=== PATIENT | female | born 1925 | race Caucasian/White ===

== ENCOUNTER 2016-10-20 17:24 | Inpatient (IN) | payer MEDICARE, OTHER ==
[2016-10-20] MEDS ORDERED: SODIUM CHLORIDE 500 ML IV STA (17:58)
[2016-10-20] MEDS ORDERED: CEFTRIAXONE 1 GM in DEXTROSE 5%-WATER - 50 ML IVPB ONE ×2 (17:59→23:48)
[2016-10-20] MEDS ORDERED: CEFTRIAXONE 50 ML ONE (18:03)
--- NOTE | 2016-10-20 18:27 | PDOC ---
History of Present Illness - General Chief Complaint: Lethargy Stated Complaint: INFECTION Time Seen by Provider: 10/20/16 17:33 History Source: Other (son) Exam Limitations: No Limitations - History of Present Illness Initial Comments: 10/20/16 18:22 89-year-old female presents to the ED for evaluation of decreased appetite, increased lethargy, and foul-smelling purulent urine noted in her diaper worsening since yesterday. Son denies fever, vomiting, diarrhea, or abdominal distention. Patient was admitted here approximately one month ago secondary to sepsis and seizure related to fever. Patient was discharged home after receiving physical therapy and has been home with the son since. Timing/Duration: getting worse Associated Symptoms: reports: loss of appetite, weakness Past History - Past Medical History Allergies/Adverse Reactions: Allergies Allergy/AdvReac Type Severity Reaction Status Date / Time Penicillins Allergy Verified 10/20/16 17:35 carbidopa AdvReac Verified 10/20/16 17:35 levetiracetam [From Keppra] AdvReac Verified 10/20/16 17:35 mirtazapine AdvReac Verified 10/20/16 17:35 Home Medications: Ambulatory Orders Carboxymethylcellulose Sodium [Refresh Plus] 1 each OP BID PRN 06/22/16 Nystatin Ointment [Mycostatin Ointment -] 1 applic TP BID PRN 06/22/16 Docusate Liquid [Colace Liquid -] 100 mg PO TID #473 ml 09/14/16 Memantine HCl [Namenda Liquid] 5 mg PO DAILY #30 ml 09/14/16 Phenytoin Na Extended [Dilantin -] 100 mg PO BID #60 capsule 09/14/16 Polyethylene Glycol 3350 [Miralax 255 gm Btl -] 17 gm PO DAILY #1 bottle Anemia: No Asthma: No Cancer: No Cardiac Disorders: No COPD: No CHF: No Dementia: Yes Diabetes: No GI Disorders: No Disorders: Yes (UTI) HTN: No Hypercholesterolemia: No Liver Disease: No Psychiatric Problems: Yes (dementia) Seizures: Yes Thyroid Disease: No - Surgical History Cardiac Surgery: No Lung Surgery: No Neurologic Surgery: No - Psycho/Social/Smoking Cessation Hx Anxiety: No Suicidal Ideation: No Smoking History: Never smoked Have you smoked in the past 12 months: No Information on smoking cessation initiated: No Hx Alcohol Use: No Drug/Substance Use Hx: No Substance Use Type: None Hx Substance Use Treatment: No Patient Lives Alone: No Lives with/in: son Review of Systems - Review of Systems Able to Perform ROS?: Yes Constitutional: Yes: Loss of Appetite, Weakness HEENTM: No: Symptoms Reported Respiratory: No: Symptoms reported Cardiac (ROS): No: Symptoms Reported ABD/GI: No: Poor Appetite, Poor Fluid Intake : Yes: Other (purulentr drainage) Integumentary: No: Symptoms Reported Neurological: No: Symptoms reported Endocrine: No: Symptoms Reported Hematologic/Lymphatic: No: Symptoms Reported *Physical Exam - Vital Signs Last Vital Signs Temp Pulse Resp BP Pulse Ox 98.0 F 66 18 132/63 98 10/20/16 17:25 10/20/16 17:25 10/20/16 17:25 10/20/16 17:25 10/20/16 18:00 - Physical Exam General Appearance: Yes: Nourished, Appropriately Dressed. No: Apparent Distress HEENT: positive: EOMI, SILVER, Pharynx Normal (dry). negative: Pale Conjunctivae Neck: positive: Supple Respiratory/Chest: positive: Lungs Clear, Normal Breath Sounds. negative: Respiratory Distress, Accessory Muscle Use Cardiovascular: positive: Regular Rhythm, Regular Rate. negative: Murmur Gastrointestinal/Abdominal: positive: Soft. negative: Tenderness Integumentary: positive: Normal Color, Dry, Warm Neurologic: positive: Motor Strength 5/5 (moving extremities on stretcher) Heart Score/ECG Review - ECG Intrepretation Rhythm: Regular Rhythm (rate 68, left axis deviation) ED Treatment Course - LABORATORY CBC & Chemistry Diagram: 10/24/16 06:30 10/24/16 06:30 - RADIOLOGY Radiology Studies Ordered: Category Date Time Status CHEST X-RAY PORTABLE* [RAD] Stat Radiology 10/20/16 17:56 Ordered Medical Decision Making - Medical Decision Making 10/20/16 18:28 Patient here for evaluation of increased lethargy, decreased appetite, and purulent urine noted in her diaper. Patient was seen here approximately one half months ago and was diagnosed with urosepsis treated with ceftriaxone secondary to Escherichia coli. Patient on exam appeared weak, with dry mucous membranes, and with normal vitals. septic workup initiated and ordered a dose of IV ceftriaxone. Patient also ordered for 500 mL of normal saline. *DC/Admit/Observation/Transfer Diagnosis at time of Disposition: UTI (urinary tract infection) Qualifiers: Urinary tract infection type: site unspecified Hematuria presence: without hematuria Qualified Code(s): N39.0 - Urinary tract infection, site not specified - Discharge Dispostion Admit: Yes
[2016-10-20 18:31] LABS: BASOPHIL 1.2 % (0-2.0); EOSINOPHIL 4.4 % (0-4.5); MCH 32.4 pg (25.7-33.7); MCHC 33.8 g/dl (32.0-36.0); MEAN PLT VOLUME 8.1 fl (7.5-11.1); NEUTROPHILS 62.3 % (42.8-82.8); PLATELET COUNT 314 K/MM3 (134-434); RDW 15.2 % (11.6-15.6); WHITE BLOOD COUNT 5.4 K/mm3 (4.0-10.0)
[2016-10-20 18:35] LABS: PH,URINE 7.5 (5.0-8.0); URINE APPEARANCE CLEAR; URINE BILIRUBIN 1+ (NEGATIVE); URINE COLOR DK. YELLOW; URINE GLUCOSE (UA) NEGATIVE (NEGATIVE); URINE KETONE TRACE (NEGATIVE); URINE NITRITE NEGATIVE (NEGATIVE); URINE UROBILINOGEN 0.2 E.U/dl E.U./dl (0.2-1.0)
[2016-10-20 18:37] LABS: URINE BLOOD 2+ (NEGATIVE); URINE LEUK ESTERASE 2+ (NEGATIVE); URINE PROTEIN 2+ (NEGATIVE)
[2016-10-20 18:45] LABS: URINE BACTERIA MODERATE /hpf (NONE SEEN); URINE MUCUS RARE; URINE RBC 7 /hpf (0-3); URINE WBC 1100 /hpf (3-5)
[2016-10-20 19:00] LABS: ALBUMIN 3.2 g/dl (3.4-5.0); ANION GAP 7 (8-16); BILIRUBIN,TOTAL 0.2 mg/dL (0.2-1.0); CALCIUM 8.7 mg/dL (8.5-10.1); CO2 32 mmol/L (21-32); CREATININE 0.4 mg/dL (0.55-1.02); GLUCOSE,RANDOM 87 mg/dL (74-106); SGOT/AST 39 U/L (15-37); SGPT/ALT 42 U/L (12-78)
--- NOTE | 2016-10-20 19:00 | PDOC ---
*Physical Exam - Vital Signs Last Vital Signs Temp Pulse Resp BP Pulse Ox 98.0 F 66 18 132/63 98 10/20/16 17:25 10/20/16 17:25 10/20/16 17:25 10/20/16 17:25 10/20/16 18:00 Heart Score/ECG Review #1 ECG reviewed & interpreted by me at: 17:50 General ECG Interpretation: Sinus Rhythm, Normal Rate (66), Normal Intervals, No acute ischemic changes (q waves III/AVF) ED Treatment Course - LABORATORY CBC & Chemistry Diagram: 10/24/16 06:30 10/26/16 05:48 - ADDITIONAL ORDERS Additional order review: Laboratory Results 10/20/16 18:20 Urine Color Dk. yellow Urine Appearance Clear Urine pH 7.5 Ur Specific [place] 1.025 Urine Protein 2+ H Urine Glucose (UA) Negative Urine Ketones Trace H Urine Blood 2+ H Urine Nitrite Negative Urine Bilirubin 1+ H Urine Urobilinogen 0.2 e.u/dl Ur Leukocyte Esterase 2+ H 10/20/16 18:00 RBC 3.69 MCV 96.0 MCHC 33.8 RDW 15.2 MPV 8.1 Neutrophils % 62.3 Lymphocytes % 18.9 Monocytes % 13.2 H Eosinophils % 4.4 D Basophils % 1.2 - Medications Given in the ED: ED Medications Discontinued Medications Generic Name Dose Route Start Last Admin Trade Name Freq PRN Reason Stop Dose Admin Sodium Chloride 500 mls @ 500 mls/hr 10/20/16 17:58 10/20/16 18:01 Normal Saline - IV 10/20/16 18:57 500 mls/hr ASDIR STA Administration Ceftriaxone Sodium 1 gm/ 50 mls @ 100 mls/hr 10/20/16 17:59 10/20/16 18:11 Dextrose IVPB 10/20/16 18:28 100 mls/hr ONCE ONE Administration Medical Decision Making - Medical Decision Making 10/20/16 18:59 Patient seen and evaluated with the nurse practitioner. I agree with the overall evaluation, assessment, and management with the following summary of visit: 89-year-old female brought in for progressive weakness and possible UTI, failure to thrive at home. Agree with management as outlined including labs, imaging, EKG, admission. *DC/Admit/Observation/Transfer Diagnosis at time of Disposition: UTI (urinary tract infection) Qualifiers: Urinary tract infection type: site unspecified Hematuria presence: without hematuria Qualified Code(s): N39.0 - Urinary tract infection, site not specified - Discharge Dispostion Condition at time of disposition: Improved - Prescriptions - Referrals
[2016-10-20 19:01] LABS: ALK PHOS 94 U/L (45-117)
[2016-10-20 19:07] LABS: INR 1.06 (0.82-1.09); PROTHROMBIN TIME (PATIENT) 11.7 SEC (9.98-11.88)
--- NOTE | 2016-10-20 20:42 | PDOC ---
*Physical Exam - Vital Signs Last Vital Signs Temp Pulse Resp BP Pulse Ox 98.0 F 66 18 132/63 98 10/20/16 17:25 10/20/16 17:25 10/20/16 17:25 10/20/16 17:25 10/20/16 18:00 - Physical Exam Comments: 10/20/16 20:[address] whitaker/ will wait for Head Ct ED Treatment Course - LABORATORY CBC & Chemistry Diagram: 10/24/16 06:30 10/26/16 05:48 - ADDITIONAL ORDERS Additional order review: Laboratory Results 10/20/16 10/20/16 10/20/16 18:20 18:20 18:20 INR Sodium Potassium Chloride Carbon Dioxide Anion Gap BUN Creatinine Creat Clearance w eGFR Random Glucose Lactic Acid 0.880 Calcium Total Bilirubin AST ALT Alkaline Phosphatase Total Protein Albumin Urine Color Dk. yellow Urine Appearance Clear Urine pH 7.5 Ur Specific [place] 1.025 Urine Protein 2+ H Urine Glucose (UA) Negative Urine Ketones Trace H Urine Blood 2+ H Urine Nitrite Negative Urine Bilirubin 1+ H Urine Urobilinogen 0.2 e.u/dl Ur Leukocyte Esterase 2+ H Urine RBC 7 Urine WBC 1100 Urine Bacteria Moderate Urine Mucus Rare Blood Type A POSITIVE Antibody Screen Negative 10/20/16 10/20/16 18:00 18:00 INR 1.06 Sodium 139 Potassium 4.4 D Chloride 100 Carbon Dioxide 32 Anion Gap 7 L BUN 29 H D Creatinine 0.4 L D Creat Clearance w eGFR > 60 Random Glucose 87 Lactic Acid Calcium 8.7 Total Bilirubin 0.2 D AST 39 H ALT 42 D Alkaline Phosphatase 94 D Total Protein 7.0 Albumin 3.2 L Urine Color Urine Appearance Urine pH Ur Specific [place] Urine Protein Urine Glucose (UA) Urine Ketones Urine Blood Urine Nitrite Urine Bilirubin Urine Urobilinogen Ur Leukocyte Esterase Urine RBC Urine WBC Urine Bacteria Urine Mucus Blood Type Antibody Screen 10/20/16 18:00 RBC 3.69 MCV 96.0 MCHC 33.8 RDW 15.2 MPV 8.1 Neutrophils % 62.3 Lymphocytes % 18.9 Monocytes % 13.2 H Eosinophils % 4.4 D Basophils % 1.2 - RADIOLOGY Radiology Studies Ordered: Category Date Time Status HEAD CT WITHOUT CONTRAST [CT] Stat CT Scan 10/20/16 20:41 Ordered - Medications Given in the ED: ED Medications Discontinued Medications Generic Name Dose Route Start Last Admin Trade Name Freq PRN Reason Stop Dose Admin Sodium Chloride 500 mls @ 500 mls/hr 10/20/16 17:58 10/20/16 18:01 Normal Saline - IV 10/20/16 18:57 500 mls/hr ASDIR STA Administration Ceftriaxone Sodium 1 gm/ 50 mls @ 100 mls/hr 10/20/16 17:59 10/20/16 18:11 Dextrose IVPB 10/20/16 18:28 100 mls/hr ONCE ONE Administration *DC/Admit/Observation/Transfer Diagnosis at time of Disposition: UTI (urinary tract infection) - Discharge Dispostion Condition at time of disposition: Improved - Prescriptions - Referrals - Patient Instructions - Post Discharge Activity
--- NOTE | 2016-10-20 23:04 | HP ---
<Neno Gonzales - Last Filed: 10/20/16 23:32> CHIEF COMPLAINT: PCP: HISTORY OF PRESENT ILLNESS: 89-year-old female, poor historian, presented to the ED for evaluation of decreased appetite, increased lethargy, and foul-smelling purulent urine noted in her diaper worsening since yesterday. Patient was admitted here approximately one month ago secondary to sepsis and seizure related to fever. Patient was discharged home after receiving physical therapy and has been home with the son since. History as per ER record due to patients altered mental status. Son denies fever, vomiting, diarrhea, or abdominal distention. Recent Travel: Unknown PAST MEDICAL HISTORY: Parkinson's, Dementia, Anoxic brain injury, Seizure disorder, Depression. PAST SURGICAL HISTORY: Unknown Social History: Smoking: None Alcohol: None Drugs: None Family History: Allergies Penicillins Allergy (Verified 10/20/16 17:35) Carbidopa Adverse Reaction (Verified 10/20/16 17:35) Levetiracetam [From [facility]] Adverse Reaction (Verified 10/20/16 17:35) Mirtazapine Adverse Reaction (Verified 10/20/16 17:35) HOME MEDICATIONS: Home Medications Medication Instructions Recorded Carboxymethylcellulose Sodium 1 each OP BID PRN 06/22/16 [Refresh Plus] Nystatin Ointment [Mycostatin 1 applic TP BID PRN 06/22/16 Ointment -] Citalopram Hydrobromide [Celexa -] 5 ml PO DAILY #0 09/14/16 Docusate Liquid [Colace Liquid -] 100 mg PO TID #473 ml 09/14/16 Memantine HCl [Namenda Liquid] 5 mg PO DAILY #30 ml 09/14/16 Phenytoin Na Extended [Dilantin -] 100 mg PO BID #60 capsule 09/14/16 Polyethylene Glycol 3350 [Miralax 17 gm PO DAILY #1 bottle 09/14/16 255 gm Btl -] REVIEW OF SYSTEMS Unable to obtain due to altered mental status. PHYSICAL EXAMINATION Vital Signs - 24 hr 10/20/16 10/20/16 10/20/16 17:25 18:00 20:52 Temperature 98.0 F 98.3 F Pulse Rate 66 Pulse Rate [ 87 Left Radial] Respiratory 18 20 Rate Blood Pressure 132/63 Blood Pressure 135/80 [Left Arm] O2 Sat by Pulse 100 98 98 Oximetry (%) GENERAL: Thin elderly women lying in bed, in no distress, nonverbal and not following commands. HEENT: Atraumatic. Moist mucosa. Normocephalic. No sinus tenderness. No LAD. NECK: No JVD. No thyroid masses. Supple.contracted to the left no masses noted no lymphanodomy LUNGS: anteriorly Clear to auscultation bilaterally. No wheezing or crackles noted HEART: Regular rate and rhythm, normal S1 and S2, holosystolic murmur, rubs or gallops, peripheral pulses normal and equal bilaterally. ABDOMEN: Soft, normoactive bowel sounds in 4 quadrants. Guarding in 4 quadrants. Grimacing upon palpation. No masses appreciated MUSCULOSKELETAL: No joint tenderness or erythema. No muscle tenderness. Decreased muscle bulk EXTREMITIES: Normal inspection, No edema. No clubbing or cyanosis. Moves all extremities. SKIN: Warm, dry, normal turgor, no rashes or lesions noted. As per nursing stage 2 sacral ulcer which is healed. Laboratory Results - last 24 hr 10/20/16 10/20/16 10/20/16 18:00 18:00 18:00 WBC 5.4 RBC 3.69 Hgb 12.0 Hct 35.4 MCV 96.0 MCHC 33.8 RDW 15.2 Plt Count 314 D MPV 8.1 Neutrophils % 62.3 Lymphocytes % 18.9 Monocytes % 13.2 H Eosinophils % 4.4 D Basophils % 1.2 INR 1.06 Sodium 139 Potassium 4.4 D Chloride 100 Carbon Dioxide 32 Anion Gap 7 L BUN 29 H D Creatinine 0.4 L D Creat Clearance w eGFR > 60 Random Glucose 87 Lactic Acid Calcium 8.7 Total Bilirubin 0.2 D AST 39 H ALT 42 D Alkaline Phosphatase 94 D Total Protein 7.0 Albumin 3.2 L Urine Color Urine Appearance Urine pH Ur Specific [place] Urine Protein Urine Glucose (UA) Urine Ketones Urine Blood Urine Nitrite Urine Bilirubin Urine Urobilinogen Ur Leukocyte Esterase Urine RBC Urine WBC Urine Bacteria Urine Mucus Blood Type Antibody Screen 10/20/16 10/20/16 10/20/16 18:20 18:20 18:20 WBC RBC Hgb Hct MCV MCHC RDW Plt Count MPV Neutrophils % Lymphocytes % Monocytes % Eosinophils % Basophils % INR Sodium Potassium Chloride Carbon Dioxide Anion Gap BUN Creatinine Creat Clearance w eGFR Random Glucose Lactic Acid 0.880 Calcium Total Bilirubin AST ALT Alkaline Phosphatase Total Protein Albumin Urine Color Dk. yellow Urine Appearance Clear Urine pH 7.5 Ur Specific [place] 1.025 Urine Protein 2+ H Urine Glucose (UA) Negative Urine Ketones Trace H Urine Blood 2+ H Urine Nitrite Negative Urine Bilirubin 1+ H Urine Urobilinogen 0.2 e.u/dl Ur Leukocyte Esterase 2+ H Urine RBC 7 Urine WBC 1100 Urine Bacteria Moderate Urine Mucus Rare Blood Type A POSITIVE Antibody Screen Negative Urine culture pending and blood culture x2 pending. IMAGING: Head CT- With no focal bleeds, masses, or infarcts noted. Cerebral atrophy positive. EKG- Normal sinus rhythm. No ST T changes noted. Left axis deviation. ASSESSMENT/PLAN: 1. Altered mental status-Possibly secondary to UTI. No evidence of acute insults on head CT. LFT, creatinine, calcium, and glucose were within normal limits. -Fall precautions -Speech and swallow evaluation 2. Abdominal Pain undetermined ideology. -Abdominal x-ray -Continue docusate liquid for constipation 100mg TID 3. UTI - Follow up urine culture - Ceftriaxone 1g IVPB Q24H 5. Seizure Disorder - Dilantin 125mg BID liquid form 6. Dementia - Namenda 5 mg PO daily 5. DVT PPX -Heparin 5000 units subq Q12H Admit to med surg. Documentation prepared by Neno Gonzales, acting as biomedical analytical scientist for Dr. Kathy MD. <Seth Chavez - Last Filed: 10/21/16 05:55> CHIEF COMPLAINT: PCP: HISTORY OF PRESENT ILLNESS: ER course was notable for: (1) (2) (3) Recent Travel: PAST MEDICAL HISTORY: PAST SURGICAL HISTORY: Social History: Smoking: Alcohol: Drugs: Family History: Allergies Penicillins Allergy (Verified 10/20/16 17:35) carbidopa Adverse Reaction (Verified 10/20/16 17:35) levetiracetam [From [facility]] Adverse Reaction (Verified 10/20/16 17:35) mirtazapine Adverse Reaction (Verified 10/20/16 17:35) HOME MEDICATIONS: Home Medications Medication Instructions Recorded Carboxymethylcellulose Sodium 1 each OP BID PRN 06/22/16 [Refresh Plus] Nystatin Ointment [Mycostatin 1 applic TP BID PRN 06/22/16 Ointment -] Citalopram Hydrobromide [Celexa -] 5 ml PO DAILY #0 09/14/16 Docusate Liquid [Colace Liquid -] 100 mg PO TID #473 ml 09/14/16 Memantine HCl [Namenda Liquid] 5 mg PO DAILY #30 ml 09/14/16 Phenytoin Na Extended [Dilantin -] 100 mg PO BID #60 capsule 09/14/16 Polyethylene Glycol 3350 [Miralax 17 gm PO DAILY #1 bottle 09/14/16 255 gm Btl -] REVIEW OF SYSTEMS CONSTITUTIONAL: Absent: fever, chills, diaphoresis, generalized weakness, malaise, loss of appetite, weight change HEENT: Absent: rhinorrhea, nasal congestion, throat pain, throat swelling, difficulty swallowing, mouth swelling, ear pain, eye pain, visual changes CARDIOVASCULAR: Absent: chest pain, syncope, palpitations, irregular heart rate, lightheadedness , peripheral edema RESPIRATORY: Absent: cough, shortness of breath, dyspnea with exertion, orthopnea, wheezing, stridor, hemoptysis GASTROINTESTINAL: Absent: abdominal pain, abdominal distension, nausea, vomiting, diarrhea, constipation, melena, hematochezia GENITOURINARY: Absent: dysuria, frequency, urgency, hesitancy, hematuria, flank pain, genital pain MUSCULOSKELETAL: Absent: myalgia, arthralgia, joint swelling, back pain, neck pain SKIN: Absent: rash, itching, pallor HEMATOLOGIC/IMMUNOLOGIC: Absent: easy bleeding, easy bruising, lymphadenopathy, frequent infections ENDOCRINE: Absent: unexplained weight gain, unexplained weight loss, heat intolerance, cold intolerance NEUROLOGIC: Absent: headache, focal weakness or paresthesias, dizziness, unsteady gait, seizure, mental status changes, bladder or bowel incontinence PSYCHIATRIC: Absent: anxiety, depression, suicidal or homicidal ideation, hallucinations. PHYSICAL EXAMINATION Vital Signs - 24 hr 10/20/16 10/20/16 10/20/16 17:25 18:00 20:52 Temperature 98.0 F 98.3 F Pulse Rate 66 Pulse Rate [ 87 Left Radial] Respiratory 18 20 Rate Blood Pressure 132/63 Blood Pressure 135/80 [Left Arm] O2 Sat by Pulse 100 98 98 Oximetry (%) GENERAL: Awake, alert, and fully oriented, in no acute distress. HEAD: Normal with no signs of trauma. EYES: Pupils equal, round and reactive to light, extraocular movements intact, sclera anicteric, conjunctiva clear. No lid lag. EARS, NOSE, THROAT: Ears normal, nares patent, oropharynx clear without exudates. Moist mucous membranes. NECK: Normal range of motion, supple without lymphadenopathy, JVD, or masses. LUNGS: Breath sounds equal, clear to auscultation bilaterally. No wheezes, and no crackles. No accessory muscle use. HEART: Regular rate and rhythm, normal S1 and S2 without murmur, rub or gallop. ABDOMEN: Soft, nontender, not distended, normoactive bowel sounds, no guarding, no rebound, no masses. No hepatomegaly or splenomegaly. MUSCULOSKELETAL: Normal range of motion at all joints. No bony deformities or tenderness. No CVA tenderness. UPPER EXTREMITIES: 2+ pulses, warm, well-perfused. No cyanosis. No clubbing. Cap refill <2 seconds. No peripheral edema. LOWER EXTREMITIES: 2+ pulses, warm, well-perfused. No calf tenderness. No peripheral edema. NEUROLOGICAL: Cranial nerves II-XII intact. Normal speech. Normal gait. PSYCHIATRIC: Cooperative. Good eye contact. Appropriate mood and affect. SKIN: Warm, dry, normal turgor, no rashes or lesions noted. Laboratory Results - last 24 hr 10/20/16 10/20/16 10/20/16 18:00 18:00 18:00 WBC 5.4 RBC 3.69 Hgb 12.0 Hct 35.4 MCV 96.0 MCHC 33.8 RDW 15.2 Plt Count 314 D MPV 8.1 Neutrophils % 62.3 Lymphocytes % 18.9 Monocytes % 13.2 H Eosinophils % 4.4 D Basophils % 1.2 INR 1.06 Sodium 139 Potassium 4.4 D Chloride 100 Carbon Dioxide 32 Anion Gap 7 L BUN 29 H D Creatinine 0.4 L D Creat Clearance w eGFR > 60 Random Glucose 87 Lactic Acid Calcium 8.7 Total Bilirubin 0.2 D AST 39 H ALT 42 D Alkaline Phosphatase 94 D Total Protein 7.0 Albumin 3.2 L Urine Color Urine Appearance Urine pH Ur Specific [place] Urine Protein Urine Glucose (UA) Urine Ketones Urine Blood Urine Nitrite Urine Bilirubin Urine Urobilinogen Ur Leukocyte Esterase Urine RBC Urine WBC Urine Bacteria Urine Mucus Blood Type Antibody Screen 10/20/16 10/20/16 10/20/16 18:20 18:20 18:20 WBC RBC Hgb Hct MCV MCHC RDW Plt Count MPV Neutrophils % Lymphocytes % Monocytes % Eosinophils % Basophils % INR Sodium Potassium Chloride Carbon Dioxide Anion Gap BUN Creatinine Creat Clearance w eGFR Random Glucose Lactic Acid 0.880 Calcium Total Bilirubin AST ALT Alkaline Phosphatase Total Protein Albumin Urine Color Dk. yellow Urine Appearance Clear Urine pH 7.5 Ur Specific [place] 1.025 Urine Protein 2+ H Urine Glucose (UA) Negative Urine Ketones Trace H Urine Blood 2+ H Urine Nitrite Negative Urine Bilirubin 1+ H Urine Urobilinogen 0.2 e.u/dl Ur Leukocyte Esterase 2+ H Urine RBC 7 Urine WBC 1100 Urine Bacteria Moderate Urine Mucus Rare Blood Type A POSITIVE Antibody Screen Negative ASSESSMENT/PLAN: Visit type - Emergency Visit Emergency Visit: Yes ED Registration Date: 10/20/16 Care time: The patient presented to the Emergency Department on the above date and was hospitalized for further evaluation of their emergent condition. - New Patient This patient is new to me today: Yes Date on this admission: 10/21/16 - Critical Care Critical Care patient: No
[2016-10-20] MEDS: HEPARIN NA (PORCINE) 5,000 UNITS/ML 1ML VIAL SQ SCH (23:57)
[2016-10-20] MEDS ORDERED: MEMANTINE HCL 5 MG TABLET (UD) PO ONE (23:59)
[2016-10-21 00:02] VITALS: BMI 15.6
[2016-10-21] MEDS: PHENYTOIN 100 MG/4 ML U-D CUP PO SCH ×2 (01:33→09:33)
[2016-10-21] MEDS: DEXTROSE 5%-WATER - 1,000 ML IV SCH ×2 (02:14→22:54)
[2016-10-21] MEDS ORDERED: SODIUM PHOSPHATE/NA BIPHOS 133 ML ENEMA PR ONE (05:55)
[2016-10-21 08:26] LABS: MCH 32.5 pg (25.7-33.7); MCHC 33.6 g/dl (32.0-36.0); MEAN CELL VOLUME 96.6 fl (80-96); MEAN PLT VOLUME 8.3 fl (7.5-11.1); PLATELET COUNT 276 K/MM3 (134-434); RDW 15.4 % (11.6-15.6)
[2016-10-21 08:35] LABS: CALCIUM 7.8 mg/dL (8.5-10.1); CREATININE 0.4 mg/dL (0.55-1.02); MAGNESIUM 2.3 mg/dL (1.8-2.4)
[2016-10-21] MEDS ORDERED: BISACODYL 10 MG SUPP.RECT RC ONE (10:00)
[2016-10-21] MEDS ORDERED: MEMANTINE HCL 5 MG PO SCH (10:00)
[2016-10-21] MEDS: CEFTRIAXONE 50 ML IVPB SCH (10:10)
[2016-10-21] MEDS: HEPARIN NA (PORCINE) 5,000 UNITS/ML 1ML VIAL SQ SCH ×2 (10:10→22:02)
--- NOTE | 2016-10-21 11:01 | PN ---
Physical Exam: SUBJECTIVE: Patient seen and examined. She is non verbal, opens eyes, but does not communicate. Physical exam limited. OBJECTIVE: Vital Signs Period Temp Pulse Resp BP Sys/Angela Pulse Ox Last 24 Hr 97.6 F-97.8 F 66-72 18-20 140-146/72-80 GENERAL: Lethargic, in no acute distress HEAD: Normal with no signs of trauma. EYES: Did not open eyes ENT: Appears dehydrated NECK: Trachea midline, full range of motion, supple. LUNGS: Bilateral breath sounds diminished HEART: Regular rate and rhythm ABDOMEN: Soft abdomen, pain illicited on light palpation of abdomen, worse pain with palpation of left lower quadrant EXTREMITIES: warm, well-perfused, no edema. NEUROLOGICAL: Non verbal, bed bound, unsure of what baseline gait is, family not present PSYCH: lethargic, non engat SKIN: Excoriated buttocks. Laboratory Results - last 24 hr 10/21/16 10/21/16 06:20 06:20 WBC 6.0 RBC 3.50 L Hgb 11.4 Hct 33.8 MCV 96.6 H MCHC 33.6 RDW 15.4 Plt Count 276 MPV 8.3 Sodium 139 Potassium 4.6 Chloride 105 Carbon Dioxide 24 D Anion Gap 10 BUN 27 H Creatinine 0.4 L Random Glucose 103 Calcium 7.8 L Phosphorus 4.0 D Magnesium 2.3 D Total Amylase 63 Lipase 140 Active Medications Generic Name Dose Route Start Last Admin Trade Name Freq PRN Reason Stop Dose Admin Citalopram Hydrobromide 10 mg 10/21/16 10:00 Celexa - PO DAILY [facility] Docusate Sodium 100 mg 10/21/16 10:00 Colace - PO BID [facility] Heparin Sodium (Porcine) 5,000 unit 10/20/16 23:45 10/21/16 10:10 Heparin - SQ 5,000 unit BID [facility] Administration Ceftriaxone Sodium 50 mls @ 100 mls/hr 10/21/16 10:00 10/21/16 10:10 Rocephin 1gm Ivpb (Pre-Docked) IVPB 100 mls/hr DAILY [facility] Administration Dextrose 1,000 mls @ 42 mls/hr 10/21/16 01:45 10/21/16 02:14 D5w - IV 42 mls/hr ASDIR LEA Administration Memantine 5 mg 10/21/16 10:00 Namenda - PO DAILY [facility] Phenytoin Sodium 100 mg 10/21/16 02:00 10/21/16 09:33 Dilantin Oral Suspension - PO Not Given BID [facility] ASSESSMENT/PLAN: Patient is a 89 year old female with a significant past medical history of dementia, AMS, anoxic brain injury, respiratory failure requiring intubation and several episodes of sepsis secondary to UTI. She was admitted on 10/20/2016 with decreased appetite, increased lethargy and foul smelling purulent urine. She lives at home with her son. Patient was admitted here approximately one and half months ago and was diagnosed with urosepsis from Escherichia coli. My exam limited as patient is non verbal, fearful and non cooperative. But she appeared weak, cachectic with dry mucous membranes. Will await for family to get further information. Neurology: Altered Mental Status - rule out sepsis due to UTI Assessment/Plan: She is currently afebrile and hemodynamically stable. No Leukocytosis but started on Ceftriaxone daily She is not tachycardic, vitals are stable, lactic acid 0.880 Blood and urine cultures are pending UA shows +2 protein, +2 urine blood, +2 leukocytes WBC 1100 She is also on gentle IV fluid hydration of D5 @ 42cc/hr Head CT negative for bleed, masses or infarcts, cerebral atrophy negative will consult neurology She has recent urosepsis history, ID consulted Dementia - chronic Assessment/Plan: On Namenda Seizures - chronic Assessment/Plan: On Phenytoin 100MG PO BID Switched medication to Phenytoin 100mg IV, equivalent dosage (PO to IV) confirmed with pharmacy Phenytoin levels sent Seizure precautions Muscular/Skeletal: Failure to thrive - chronic Assessment/Plan: Very thin and frail appearing, no weight loss noted since last admission Will consult RD for further recommendations GI: Constipation - acute Assessment/Plan: Abdominal xray shows large amounts of retained stool compatible with constipation Given a fleets enema and dulcolax suppository, has had BMs F.E.N. Fluids: D5 @ 75cc/hr/NPO except for PO meds Electrolytes: within normal limits, dehydration Nutrition: NPO secondary to AMS Swallow evaluation to be repeated as pt was unable to participate Aspiration precautions Prophylaxis: Heparin BID GI: protonix IV 40mg daily Visit type - Emergency Visit Emergency Visit: Yes ED Registration Date: 10/20/16 Care time: The patient presented to the Emergency Department on the above date and was hospitalized for further evaluation of their emergent condition. - New Patient This patient is new to me today: Yes Date on this admission: 10/21/16 - Critical Care Critical Care patient: No - Discharge Referral Referred to [facility] No
[2016-10-21] MEDS: MEMANTINE HCL 5 MG TABLET (UD) PO SCH (12:10)
[2016-10-21] MEDS: DOCUSATE SODIUM 100 MG CAPSULE (FP) PO SCH ×2 (12:10→21:31)
[2016-10-21] MEDS: CITALOPRAM HYDROBROMIDE 10 MG TABLET (FP) PO SCH (12:10)
--- NOTE | 2016-10-21 14:21 | CONSULT ---
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, Other (anoxic brain injury) - Smoking History Smoking history: Never smoked Have you smoked in the past 12 months: No - Alcohol/Substance Use Hx Alcohol Use: No History - Admission Reason For Visit: UTI - Hearing Hearing: Impaired Hearing Aide: No Speech Evaluation - Communication Primary Language: BULGARIAN Communication: Yes: Non-Communicable (Pt is non-verbal, minimally responsive to auditory and tracy tactile stimuli.) - Speech Production Apraxia: No Able to Make Needs Known: Yes: Severely Impaired (Non-verbal) Intelligibility: Yes: Severely Impaired - Speech Characteristics Voice Loudness: Severely Soft/Quiet (Unable to elicit vocal response.) Speech Pattern: Impaired Speech Clarity: < 100% - Language/Auditory Comprehension Observation: Able to respond to yes/no queries: No, Comprehends Conversational Speech: No, Benefits from Slow Speech: No, Benefits from Repetiton: No, Benefits from Increased Volume of Speech: No - Language/Verbal Expression Able to Respond to Simple Queries: Yes: Severely Impaired Able to Communicate Wants and Needs: Yes: Severely Impaired (poor response) Functional Communication Status: Yes: Severely Impaired Aware of Errors: No Attempts to Correct Errors: No Use of Gestures: No Attention: Yes: Unresponsive - Memory/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 Full upper teeth present.) Facial Symmetry at Rest: Symmetrical Facial Symmetry on Retraction: Symmetrical Facial Movement: Involuntary Facial Comment: unable to complete full assesment secondary to AMS A-P Transit: Impaired Other Findings/Remarks: 89 yo female seen at bedside for swallow eval to r/o dysphagia. Pt presents as non-verbal with eyes closed, unresponsive to tracy tactile and auditory stimuli, no response to y/n questions. Admitted to [facility] for Weight loss, reduced appetite, increased lethargy, possible sepsis and UTI. PMHX includes Parkinson's disease, SzD, depression, Dementia and anoxic brain injury. SOFT BOARDER attempted to offer cold moisten with H2O toothette. Pt would not open her mouth with clinched lips with each attempt. SOFT BOARDER also tried ice chips from a spoon. Pt expelled the ice and would not accept any more solid or liquid trials. Recommendations - Speech Evaluation, Impression/Plan Impression: Pt presents with severe oral pharyngeal dysphagia secondary to AMS. - Dysphagia Impressions/Plan Swallowing Skills: Impaired Dysphagia Impressions: Risk of Aspiration, Refused PO Trials *Silent aspiration: cannot be R/O at bedside Dysphagia Evaluation Summary: Consider alternate means of providing hydration and medication. Pt to remain NPO at this time. Results given verbally to discharge door operator Maria and to pcp via chart. SOFT BOARDER to follow up when mental status improves. - Recommendations Diet Consistency: NPO Liquids: NPO, IV Hydration (consider)
--- NOTE | 2016-10-21 15:40 | CONSULT ---
Consult Consult Specialty:: infectious diseases Reason for Consultation:: uti - History of Present Illness History of Present Illness: 89-year-old female, poor historian, presented to the ED for evaluation of decreased appetite, increased lethargy, and foul-smelling purulent urine noted in her diaper worsening since yesterday. Patient was admitted here approximately one month ago secondary to sepsis and seizure related to fever. Patient was discharged home after receiving physical therapy and has been home with the son since. History as per ER record due to patients altered mental status. Son denies fever, vomiting, diarrhea, or abdominal distention. 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: Dementia, Other (anoxic brain injury) - Alcohol/Substance Use Hx Alcohol Use: No - Smoking History Smoking history: Never smoked Have you smoked in the past 12 months: No Home Medications - Allergies Allergies/Adverse Reactions: Allergies Allergy/AdvReac Type Severity Reaction Status Date / Time Penicillins Allergy Verified 10/20/16 17:35 carbidopa AdvReac Verified 10/20/16 17:35 levetiracetam [From Keppra] AdvReac Verified 10/20/16 17:35 mirtazapine AdvReac Verified 10/20/16 17:35 - Home Medications Home Medications: Ambulatory Orders Carboxymethylcellulose Sodium [Refresh Plus] 1 each OP BID PRN 06/22/16 Nystatin Ointment [Mycostatin Ointment -] 1 applic TP BID PRN 06/22/16 Citalopram Hydrobromide [Celexa -] 5 ml PO DAILY #0 09/14/16 Docusate Liquid [Colace Liquid -] 100 mg PO TID #473 ml 09/14/16 Memantine HCl [Namenda Liquid] 5 mg PO DAILY #30 ml 09/14/16 Phenytoin Na Extended [Dilantin -] 100 mg PO BID #60 capsule 09/14/16 Polyethylene Glycol 3350 [Miralax 255 gm Btl -] 17 gm PO DAILY #1 bottle Review of Systems Unable to obtain ROS, reason: unable to obtain Physical Exam Vital Signs: Vital Signs Temperature 97.9 F 10/21/16 14:26 Pulse Rate 95 H 10/21/16 14:26 Respiratory Rate 20 10/21/16 14:26 Blood Pressure 138/65 10/21/16 09:00 O2 Sat by Pulse Oximetry (%) 98 10/21/16 09:00 Constitutional: Yes: Thin Eyes: Yes: Other (patient not opening eyes) HENT: Yes: Atraumatic Neck: Yes: Supple Cardiovascular: Yes: Regular Rate and Rhythm, Murmur Respiratory: Yes: Regular, CTA Bilaterally Gastrointestinal: Yes: Normal Bowel Sounds, Soft Musculoskeletal: Yes: WNL Extremities: Yes: WNL Neurological: Yes: Other Psychiatric: Yes: Other Labs: CBC, BMP 10/21/16 06:20 10/21/16 06:20 Imaging - Results Chest X-ray: Report Reviewed, Image Reviewed X-ray: Report Reviewed, Image Reviewed Cat Scan: Report Reviewed, Image Reviewed Assessment/Plan . Altered mental status-Possibly secondary to UTI. 2. Abdominal Pain undetermined ideology. 3. UTI 5. Seizure Disorder 6. Dementia plan continue abx await for final cx report monitor wbc monitor for fever
[2016-10-21] MEDS: PHENYTOIN SODIUM 100 MG/2 ML VIAL IVPB SCH (22:02)
--- NOTE | 2016-10-21 22:29 | EKG ---
Test Reason : Blood Pressure : / mmHG Vent. Rate : 066 BPM Atrial Rate : 066 BPM P-R Int : 156 ms QRS Dur : 072 ms QT Int : 392 ms P-R-T Axes : 068 -30 051 degrees QTc Int : 410 ms NORMAL SINUS RHYTHM LEFT AXIS DEVIATION CANNOT RULE OUT INFERIOR INFARCT , AGE UNDETERMINED ABNORMAL ECG WHEN COMPARED WITH ECG OF 11-SEP-2016 17:55, NO SIGNIFICANT CHANGE WAS FOUND Confirmed by MORRIS PENA, SHARON ([id number]) on 10/21/2016 10:29:23 PM Referred By: Confirmed By:SHARON CACERES MD
[2016-10-22 07:26] LABS: BASOPHIL 1.2 % (0-2.0); EOSINOPHIL 6.2 % (0-4.5); MCH 32.4 pg (25.7-33.7); MCHC 33.6 g/dl (32.0-36.0); MEAN CELL VOLUME 96.3 fl (80-96); MEAN PLT VOLUME 8.6 fl (7.5-11.1); NEUTROPHILS 63.6 % (42.8-82.8); PLATELET COUNT 268 K/MM3 (134-434); RDW 15.4 % (11.6-15.6); WHITE BLOOD COUNT 6.3 K/mm3 (4.0-10.0)
[2016-10-22 08:03] LABS: ALBUMIN 2.5 g/dl (3.4-5.0); ALK PHOS 75 U/L (45-117); ANION GAP 10 (8-16); BILIRUBIN,TOTAL 0.2 mg/dL (0.2-1.0); CALCIUM 8.1 mg/dL (8.5-10.1); CO2 27 mmol/L (21-32); CREATININE 0.3 mg/dL (0.55-1.02); GLUCOSE,RANDOM 98 mg/dL (74-106); SGOT/AST 33 U/L (15-37); SGPT/ALT 31 U/L (12-78); TOT PROT 5.8 g/dl (6.4-8.2)
--- NOTE | 2016-10-22 09:04 | CONSULT ---
Consult Reason for Consultation:: lethargy and AMS - History of Present Illness History of Present Illness: Per medical record review this 89 YO previously admitted with sepsis and discharged to an extended care facility was returned to the ED with acute AMS, lethargy and possible co-morbid UTI. Today she will open her eyes for her son, but otherwise will not follow commands but withdrawals from pain. The son said she was previously treated with PD medications but was later determined not to have Parkinson's disease. She has "spasms in the neck that have not been treated. She was noted to have sporadic limb movements after an anti-depressant was started and diagnosed with "seizures." He believes Dilantin helped the limb movements. 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 ) - Alcohol/Substance Use Hx Alcohol Use: No - Smoking History Smoking history: Never smoked Have you smoked in the past 12 months: No Home Medications - Allergies Allergies/Adverse Reactions: Allergies Allergy/AdvReac Type Severity Reaction Status Date / Time Penicillins Allergy Verified 10/20/16 17:35 carbidopa AdvReac Verified 10/20/16 17:35 levetiracetam [From Keppra] AdvReac Verified 10/20/16 17:35 mirtazapine AdvReac Verified 10/20/16 17:35 - Home Medications Home Medications: Ambulatory Orders Carboxymethylcellulose Sodium [Refresh Plus] 1 each OP BID PRN 06/22/16 Nystatin Ointment [Mycostatin Ointment -] 1 applic TP BID PRN 06/22/16 Docusate Liquid [Colace Liquid -] 100 mg PO TID #473 ml 09/14/16 Memantine HCl [Namenda Liquid] 5 mg PO DAILY #30 ml 09/14/16 Phenytoin Na Extended [Dilantin -] 100 mg PO BID #60 capsule 09/14/16 Polyethylene Glycol 3350 [Miralax 255 gm Btl -] 17 gm PO DAILY #1 bottle Physical Exam Vital Signs: Vital Signs Temperature 97.1 F L 10/22/16 08:58 Pulse Rate 57 L 10/22/16 08:58 Respiratory Rate 18 10/22/16 08:58 Blood Pressure 121/56 10/22/16 08:58 O2 Sat by Pulse Oximetry (%) 98 10/21/16 21:00 Constitutional: Yes: Well Nourished, No Distress, Other (cervical dystonia with limited ROM with left sided head tilt.) Eyes: Yes: EOM Intact, PERRL. No: Ptosis Neurological: Yes: Cran Nerves II-XII Intact. 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
[2016-10-22] MEDS ORDERED: PT OWN MED DRAWER 7, Y5N ONE (09:53)
[2016-10-22] MEDS: PANTOPRAZOLE SODIUM 100 ML IVPB SCH (09:58)
[2016-10-22] MEDS: DEXTROSE 5%-WATER - 1,000 ML IV SCH ×2 (09:59→14:55)
[2016-10-22] MEDS: HEPARIN NA (PORCINE) 5,000 UNITS/ML 1ML VIAL SQ SCH ×2 (10:00→21:38)
[2016-10-22] MEDS: CITALOPRAM HYDROBROMIDE 10 MG TABLET (FP) PO SCH (10:22)
[2016-10-22] MEDS: DOCUSATE SODIUM 100 MG CAPSULE (FP) PO SCH ×2 (10:23→21:38)
[2016-10-22] MEDS: MEMANTINE HCL 5 MG TABLET (UD) PO SCH (10:23)
[2016-10-22] MEDS: PHENYTOIN SODIUM 100 MG/2 ML VIAL IVPB SCH ×2 (10:57→21:38)
[2016-10-22] MEDS: CEFTRIAXONE 50 ML IVPB SCH (11:09)
--- NOTE | 2016-10-22 12:53 | PN ---
Progress Note, INSTRUCTIONAL TECHNOLOGIST - Note Progress Note: 89 yo female seen at bedside for follow to swallow eval 10/21/16. Pt continues to present with AMS with lethargy, eyes closed and not responsive to environmental stimuli. Continue NPO status as this time. Consider alternate methods of providing medication and hydration. INSTRUCTIONAL TECHNOLOGIST to follow up when mental status changes.
--- NOTE | 2016-10-22 14:42 | PN ---
Physical Exam: SUBJECTIVE: Patient seen and examined. She is slightly more alert today but still lethargic. Unable to participate in a swallow evaluation secondary to lethargy. As per patient's son, he noticed that his mother's vaginal area is swollen. OBJECTIVE: Vital Signs Period Temp Pulse Resp BP Sys/Angela Pulse Ox Last 24 Hr 97.1 F-97.9 F 57-69 16-20 110-157/50-67 98-99 GENERAL: Lethargic, in no acute distress HEAD: Normal with no signs of trauma. EYES: Did not open eyes ENT: Appears dehydrated NECK: Trachea midline, full range of motion, supple. LUNGS: Bilateral breath sounds diminished HEART: Regular rate and rhythm ABDOMEN: Soft abdomen, pain illicited on light palpation of abdomen, worse pain with palpation of left lower quadrant EXTREMITIES: warm, well-perfused, no edema. NEUROLOGICAL: Non verbal, bed bound, unsure of what baseline gait is, family not present PSYCH: lethargic, non engat SKIN: Excoriated buttocks VAGINAL EXAM: external vaginal exam performed, no edema noted, however noted pt had some white creamy discharge from vaginal area. Will order antifungal cream. Laboratory Results - last 24 hr 10/22/16 10/22/16 06:30 06:30 WBC 6.3 RBC 3.18 L Hgb 10.3 L Hct 30.6 L MCV 96.3 H MCHC 33.6 RDW 15.4 Plt Count 268 MPV 8.6 Neutrophils % 63.6 Lymphocytes % 19.1 Monocytes % 9.9 Eosinophils % 6.2 H Basophils % 1.2 Sodium 139 Potassium 4.3 Chloride 102 Carbon Dioxide 27 Anion Gap 10 BUN 25 H Creatinine 0.3 L D Creat Clearance w eGFR > 60 Random Glucose 98 Calcium 8.1 L Total Bilirubin 0.2 AST 33 ALT 31 D Alkaline Phosphatase 75 D Total Protein 5.8 L Albumin 2.5 L D Active Medications Generic Name Dose Route Start Last Admin Trade Name Freq PRN Reason Stop Dose Admin Docusate Sodium 100 mg 10/21/16 10:00 10/22/16 10:23 Colace - PO Not Given BID LEA Heparin Sodium (Porcine) 5,000 unit 10/20/16 23:45 10/22/16 10:00 Heparin - SQ 5,000 unit BID [facility] Administration Ceftriaxone Sodium 50 mls @ 100 mls/hr 10/21/16 10:00 10/22/16 11:09 Rocephin 1gm Ivpb (Pre-Docked) IVPB 100 mls/hr DAILY [facility] Administration Pantoprazole Sodium 100 mls @ 200 mls/hr 10/22/16 10:00 10/22/16 09:58 Protonix 40mg Ivpb (Pre-Docked) IVPB 200 mls/hr DAILY [facility] Administration Dextrose 1,000 mls @ 75 mls/hr 10/22/16 14:20 D5w - IV ASDIR LEA Memantine 5 mg 10/21/16 10:00 10/22/16 10:23 Namenda - PO Not Given DAILY [facility] Phenytoin Sodium 100 mg 10/21/16 22:00 10/22/16 10:57 Dilantin Injection - IVPB 100 mg BID [facility]A Administration ASSESSMENT/PLAN: Patient is a 89 year old female with a significant past medical history of dementia, AMS, anoxic brain injury, respiratory failure requiring intubation and several episodes of sepsis secondary to UTI. She was admitted on 10/20/2016 with decreased appetite, increased lethargy and foul smelling purulent urine. She lives at home with her son. Patient was admitted here approximately one and half months ago and was diagnosed with urosepsis from Escherichia coli. My exam limited as patient is non verbal, fearful and non cooperative. But she appeared weak, cachectic with dry mucous membranes. Will await for family to get further information. Neurology: Altered Mental Status - rule out sepsis due to UTI Assessment/Plan: She is currently afebrile and hemodynamically stable. No Leukocytosis. She is not tachycardic, vitals are stable, lactic acid 0.880 Blood and urine cultures are pending UA shows +2 protein, +2 urine blood, +2 leukocytes WBC [address] negative for bleed, masses or infarcts, cerebral atrophy negative will consult neurology She has recent urosepsis history, ID consulted Dementia - chronic Assessment/Plan: On Namenda Seizures - chronic Assessment/Plan: On Phenytoin 100MG PO BID Switched medication to Phenytoin 100mg IV, equivalent dosage (PO to IV) confirmed with pharmacy Phenytoin levels pending Seizure precautions Muscular/Skeletal: Failure to thrive - chronic Assessment/Plan: Very thin and frail appearing, no weight loss noted since last admission Will consult RD for further recommendations GI: Constipation - resolved Assessment/Plan: Abdominal xray shows large amounts of retained stool compatible with constipation Has had bowel movements, abdomen no longer tender to touch. F.E.N. Fluids: D5 @ 75cc/hr/NPO except for PO meds Electrolytes: within normal limits, dehydration Nutrition: NPO secondary to AMS Swallow evaluation was repeated and pt was unable to participate Aspiration precautions Prophylaxis: Heparin BID GI: protonix IV 40mg daily Visit type - Emergency Visit Emergency Visit: Yes ED Registration Date: 10/20/16 Care time: The patient presented to the Emergency Department on the above date and was hospitalized for further evaluation of their emergent condition. - New Patient This patient is new to me today: Yes Date on this admission: 10/26/16 - Critical Care Critical Care patient: No - Discharge Referral Referred to [facility] No
--- NOTE | 2016-10-22 16:22 | PN ---
Progress Note, Physician History of Present Illness: patient slightly better today but mostly status quo fungal infection of the vaginal part - Current Medication List Current Medications: Active Medications Docusate Sodium (Colace -) 100 mg PO BID [facility] Last Admin: 10/22/16 10:23 Dose: Not Given Heparin Sodium (Porcine) (Heparin -) 5,000 unit SQ BID [facility] Last Admin: 10/22/16 10:00 Dose: 5,000 unit Ceftriaxone Sodium (Rocephin 1gm Ivpb (Pre-Docked)) 50 mls @ 100 mls/hr IVPB DAILY [facility] Last Admin: 10/22/16 11:09 Dose: 100 mls/hr Pantoprazole Sodium (Protonix 40mg Ivpb (Pre-Docked)) 100 mls @ 200 mls/hr IVPB DAILY [facility] Last Admin: 10/22/16 09:58 Dose: 200 mls/hr Dextrose (D5w -) 1,000 mls @ 75 mls/hr IV ASDIR [facility] Last Admin: 10/22/16 14:55 Dose: 75 mls/hr Memantine (Namenda -) 5 mg PO DAILY [facility] Last Admin: 10/22/16 10:23 Dose: Not Given Miconazole Nitrate (Monistat-7 Vaginal Cream -) 1 applic VG HS [facility] Stop: 10/28/16 22:01 Phenytoin Sodium (Dilantin Injection -) 100 mg IVPB BID [facility] Last Admin: 10/22/16 10:57 Dose: 100 mg - Objective Vital Signs: Vital Signs Temperature 97.8 F 10/22/16 14:05 Pulse Rate 64 10/22/16 14:05 Respiratory Rate 18 10/22/16 08:58 Blood Pressure 157/67 10/22/16 14:05 O2 Sat by Pulse Oximetry (%) 99 10/22/16 09:00 Constitutional: Yes: No Distress, Calm Cardiovascular: Yes: Regular Rate and Rhythm Respiratory: Yes: Regular, CTA Bilaterally Gastrointestinal: Yes: Normal Bowel Sounds, Soft Musculoskeletal: Yes: Other Extremities: Yes: Other Integumentary: Yes: Rash (fungal in vaginal area) Neurological: Yes: Other Labs: CBC, BMP 10/22/16 06:30 10/22/16 06:30 INR, PTT INR 1.06 (0.82-1.09) 10/20/16 18:00 Assessment/Plan . Altered mental status-Possibly secondary to UTI. 2. Abdominal Pain undetermined ideology. 3. UTI 5. Seizure Disorder 6. Dementia plan cx noted probably enterococcus allergic to pcn started on vanco await for sensitivities and diagnosis of the organism
[2016-10-22] MEDS: VANCOMYCIN 1 GRAM (PRE-DOCKED) 250 ML IVPB SCH (17:26)
[2016-10-22] MEDS: MICONAZOLE NITRATE 2% VAGINAL CREAM 45 GM TUBE VG SCH (21:39)
[2016-10-23] MEDS: DEXTROSE 5%-WATER - 1,000 ML IV SCH (10:02)
[2016-10-23] MEDS: PANTOPRAZOLE SODIUM 100 ML IVPB SCH (10:03)
[2016-10-23] MEDS: VANCOMYCIN 1 GRAM (PRE-DOCKED) 250 ML IVPB SCH (10:03)
[2016-10-23] MEDS: HEPARIN NA (PORCINE) 5,000 UNITS/ML 1ML VIAL SQ SCH ×2 (10:04→21:57)
[2016-10-23] MEDS: MEMANTINE HCL 5 MG TABLET (UD) PO SCH (10:04)
[2016-10-23] MEDS: DOCUSATE SODIUM 100 MG CAPSULE (FP) PO SCH ×2 (10:12→21:44)
[2016-10-23] MEDS: PHENYTOIN SODIUM 100 MG/2 ML VIAL IVPB SCH ×2 (12:34→21:57)
--- NOTE | 2016-10-23 13:28 | PN ---
Progress Note, Physician History of Present Illness: stable no new issues or events - Current Medication List Current Medications: Active Medications Docusate Sodium (Colace -) 100 mg PO BID [facility] Last Admin: 10/23/16 10:12 Dose: Not Given Heparin Sodium (Porcine) (Heparin -) 5,000 unit SQ BID [facility] Last Admin: 10/23/16 10:04 Dose: 5,000 unit Pantoprazole Sodium (Protonix 40mg Ivpb (Pre-Docked)) 100 mls @ 200 mls/hr IVPB DAILY [facility] Last Admin: 10/23/16 10:03 Dose: 200 mls/hr Dextrose (D5w -) 1,000 mls @ 75 mls/hr IV ASDIR [facility] Last Admin: 10/23/16 10:02 Dose: 75 mls/hr Vancomycin HCl (Vancomycin (Pre-Docked)) 250 mls @ 250 mls/hr IVPB DAILY [facility] Last Admin: 10/23/16 10:03 Dose: 250 mls/hr Memantine (Namenda -) 5 mg PO DAILY [facility] Last Admin: 10/23/16 10:04 Dose: Not Given Miconazole Nitrate (Monistat-7 Vaginal Cream -) 1 applic VG HS [facility] Stop: 10/28/16 22:01 Last Admin: 10/22/16 21:39 Dose: 1 applic Phenytoin Sodium (Dilantin Injection -) 100 mg IVPB BID [facility] Last Admin: 10/23/16 12:34 Dose: 100 mg - Objective Vital Signs: Vital Signs Temperature 97.6 F 10/23/16 08:00 Pulse Rate 66 10/23/16 08:00 Respiratory Rate 18 10/23/16 08:00 Blood Pressure 109/57 10/23/16 08:00 O2 Sat by Pulse Oximetry (%) 98 10/23/16 09:00 Constitutional: Yes: No Distress, Calm Cardiovascular: Yes: Regular Rate and Rhythm Respiratory: Yes: Regular, CTA Bilaterally Musculoskeletal: Yes: Other Extremities: Yes: Other Neurological: Yes: Other Labs: CBC, BMP 10/22/16 06:30 10/22/16 06:30 INR, PTT INR 1.06 (0.82-1.09) 10/20/16 18:00 Assessment/Plan . Altered mental status-Possibly secondary to UTI. 2. Abdominal Pain undetermined ideology. 3. UTI 5. Seizure Disorder 6. Dementia enterococcus fecalis bed bound non verbal patient plan continue vanco supportive treatment
--- NOTE | 2016-10-23 14:45 | PN ---
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 Pt has been tolerating nectar thick liquid and puree at home, holding in her mouth drinks that have small pieces in it. She has had recurrent UTI's, and sufficient hydration is very important for this pt. Bedside evaluation revealed brisk swallow without overt cough today, with single sips of thin water given from a medicine cup. Case reviewed with pt's son, Syed, . He would like a swallowing test done to be able to provide most liberal diet/ liquids that pt can tolerate. REC: Dys pure [place] thick liquid Single controlled sips of thin water Magic cup, Ensure Compact MBS to r/o aspiration on thin liquid.
--- NOTE | 2016-10-23 15:10 | PN ---
Physical Exam: SUBJECTIVE: Patient seen and examined. She was more alert today. She was able to state her first and last name when prompted. OBJECTIVE: Vital Signs Period Temp Pulse Resp BP Sys/Angela Pulse Ox Last 24 Hr 97.2 F-98.1 F 65-79 16-18 109-133/55-78 98-99 GENERAL: Lethargic, in no acute distress, able to state her first and last name today, smiling, more alert HEAD: Normal with no signs of trauma. EYES: Eyes open, looking around room ENT: Dehydration improving NECK: Trachea midline, full range of motion, supple. LUNGS: Bilateral breath sounds diminished/clear HEART: Regular rate and rhythm ABDOMEN: Soft abdomen, no pain illicited on palpation of the abdomen EXTREMITIES: warm, well-perfused, no edema. NEUROLOGICAL: more alert, awake, facial symmetry PSYCH: more alert SKIN: Excoriated buttocks - zinc ointment applied VAGINAL EXAM: white creamy discharge from vaginal area noted yesterday, started on anti-fungal vaginal cream. Active Medications Generic Name Dose Route Start Last Admin Trade Name Leta PRN Reason Stop Dose Admin Docusate Sodium 100 mg 10/21/16 10:00 10/23/16 10:12 Colace - PO Not Given BID LEA Heparin Sodium (Porcine) 5,000 unit 10/20/16 23:45 10/23/16 10:04 Heparin - SQ 5,000 unit BID LEA Administration Pantoprazole Sodium 100 mls @ 200 mls/hr 10/22/16 10:00 10/23/16 10:03 Protonix 40mg Ivpb (Pre-Docked) IVPB 200 mls/hr DAILY LEA Administration Dextrose 1,000 mls @ 75 mls/hr 10/22/16 14:20 10/23/16 10:02 D5w - IV 75 mls/hr ASDIR LEA Administration Vancomycin HCl 250 mls @ 250 mls/hr 10/22/16 16:30 10/23/16 10:03 Vancomycin (Pre-Docked) IVPB 250 mls/hr DAILY LEA Administration Memantine 5 mg 10/21/16 10:00 10/23/16 10:04 Namenda - PO Not Given DAILY LEA Miconazole Nitrate 1 applic 10/22/16 22:00 10/22/16 21:39 Monistat-7 Vaginal Cream - VG 10/28/16 22:01 1 applic HS LEA Administration Phenytoin Sodium 100 mg 10/21/16 22:00 10/23/16 12:34 Dilantin Injection - IVPB 100 mg BID LEA Administration ASSESSMENT/PLAN: Patient is a 89 year old female with a significant past medical history of dementia, AMS, anoxic brain injury, respiratory failure requiring intubation and several episodes of sepsis secondary to UTI. She was admitted on 10/20/2016 with decreased appetite, increased lethargy and foul smelling purulent urine. She lives at home with her son. Patient was admitted here approximately one and half months ago and was diagnosed with urosepsis from Escherichia coli. Patient is more awake, alert today, able to state her first and last name with prompting. Neurology: Altered Mental Status - improving Assessment/Plan: She is currently afebrile and hemodynamically stable. No Leukocytosis. She is not tachycardic, vitals are stable, lactic acid 0.880 Blood cultures negative to date UA shows +2 protein, +2 urine blood, +2 leukocytes WBC 1100 Urine cultures with enterococcus, on Vancomycin per ID Pt allergic to penicillin Head CT negative for bleed, masses or infarcts, cerebral atrophy negative neuro following, notes reviewed ID following Dementia - chronic Assessment/Plan: On Namenda Seizures - chronic Assessment/Plan: On Phenytoin 100MG PO BID Switched medication to Phenytoin 100mg IV, equivalent dosage (PO to IV) confirmed with pharmacy Phenytoin levels pending If swallowing improves, will transition back to PO Seizure precautions Muscular/Skeletal: 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 F.E.N. Fluids: D5 @ 75cc/hr/NPO Electrolytes: within normal limits, dehydration noted, but improving Nutrition: Dysphagia pureed, for MBS Aspiration precautions - caution with thin liquids Prophylaxis: Heparin BID GI: protonix IV 40mg daily Visit type - Emergency Visit Emergency Visit: Yes ED Registration Date: 10/20/16 Care time: The patient presented to the Emergency Department on the above date and was hospitalized for further evaluation of their emergent condition. - New Patient This patient is new to me today: No - Critical Care Critical Care patient: No - Discharge Referral Referred to [facility] Med P.C[facility] No
[2016-10-23] MEDS: AMINO ACIDS/PROTEIN HYDROLYS SUGAR-FREE 30 ML PACKET PO SCH (17:44)
[2016-10-23] MEDS: MICONAZOLE NITRATE 2% VAGINAL CREAM 45 GM TUBE VG SCH (21:56)
[2016-10-24] MEDS: DEXTROSE 5%-WATER - 1,000 ML IV SCH (02:22)
[2016-10-24 07:38] LABS: BASOPHIL 0.4 % (0-2.0); MCH 32.4 pg (25.7-33.7); MCHC 33.4 g/dl (32.0-36.0); MEAN CELL VOLUME 96.8 fl (80-96); MEAN PLT VOLUME 8.2 fl (7.5-11.1); NEUTROPHILS 73.3 % (42.8-82.8); PLATELET COUNT 274 K/MM3 (134-434); RDW 15.2 % (11.6-15.6); WHITE BLOOD COUNT 6.7 K/mm3 (4.0-10.0)
[2016-10-24] MEDS: AMINO ACIDS/PROTEIN HYDROLYS SUGAR-FREE 30 ML PACKET PO SCH ×2 (08:17→17:27)
[2016-10-24 08:25] LABS: ALBUMIN 2.6 g/dl (3.4-5.0); ANION GAP 8 (8-16); BILIRUBIN,TOTAL 0.2 mg/dL (0.2-1.0); CALCIUM 8.3 mg/dL (8.5-10.1); CO2 28 mmol/L (21-32); CREATININE 0.4 mg/dL (0.55-1.02); GLUCOSE,RANDOM 107 mg/dL (74-106); SGOT/AST 153 U/L (15-37); SGPT/ALT 128 U/L (12-78); TOT PROT 5.8 g/dl (6.4-8.2)
[2016-10-24 08:26] LABS: ALK PHOS 99 U/L (45-117)
[2016-10-24] MEDS ORDERED: PT OWN MED DRAWER 7, Y5N ONE ×2 (09:01→21:24)
[2016-10-24] MEDS: MEMANTINE HCL 5 MG TABLET (UD) PO SCH (09:13)
[2016-10-24] MEDS: HEPARIN NA (PORCINE) 5,000 UNITS/ML 1ML VIAL SQ SCH ×2 (09:13→21:52)
[2016-10-24] MEDS: PHENYTOIN SODIUM 100 MG/2 ML VIAL IVPB SCH (09:13)
[2016-10-24] MEDS: PANTOPRAZOLE SODIUM 100 ML IVPB SCH (09:14)
[2016-10-24] MEDS: VANCOMYCIN 1 GRAM (PRE-DOCKED) 250 ML IVPB SCH (09:14)
[2016-10-24] MEDS: DOCUSATE SODIUM 100 MG CAPSULE (FP) PO SCH ×2 (09:22→22:33)
--- NOTE | 2016-10-24 15:21 | PN ---
Progress Note, Physician History of Present Illness: Griffin alert and communicating with staff with ongoing UTI treatment. - Current Medication List Current Medications: Active Medications Amino Acids (Prostat Sugar-Free Packet -) 30 ml PO BID@0800,1730 [facility] Last Admin: 10/24/16 08:17 Dose: 30 ml Docusate Sodium (Colace -) 100 mg PO BID [facility] Last Admin: 10/24/16 09:22 Dose: Not Given Heparin Sodium (Porcine) (Heparin -) 5,000 unit SQ BID [facility] Last Admin: 10/24/16 09:13 Dose: 5,000 unit Pantoprazole Sodium (Protonix 40mg Ivpb (Pre-Docked)) 100 mls @ 200 mls/hr IVPB DAILY [facility] Last Admin: 10/24/16 09:14 Dose: 200 mls/hr Dextrose (D5w -) 1,000 mls @ 75 mls/hr IV ASDIR [facility] Last Admin: 10/24/16 02:22 Dose: 75 mls/hr Vancomycin HCl (Vancomycin (Pre-Docked)) 250 mls @ 250 mls/hr IVPB DAILY [facility] Last Admin: 10/24/16 09:14 Dose: 250 mls/hr Memantine (Namenda -) 5 mg PO DAILY [facility] Last Admin: 10/24/16 09:13 Dose: 5 mg Miconazole Nitrate (Monistat-7 Vaginal Cream -) 1 applic VG HS [facility] Stop: 10/28/16 22:01 Last Admin: 10/23/16 21:56 Dose: 1 applic Phenytoin Sodium (Dilantin Injection -) 100 mg IVPB BID [facility] Last Admin: 10/24/16 09:13 Dose: 100 mg - Objective Vital Signs: Vital Signs Temperature 97.8 F 10/24/16 14:56 Pulse Rate 67 10/24/16 14:56 Respiratory Rate 20 10/24/16 08:00 Blood Pressure 120/65 10/24/16 14:56 O2 Sat by Pulse Oximetry (%) 97 10/24/16 09:00 Constitutional: Yes: Calm Eyes: Yes: EOM Intact (possible blephrospasm associated with left-sided cervical dystonia) Neurological: Yes: Alert, Dysarthria, Weakness (non focal with possible blephrospasm associated with left-sided cervical dystonia). 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 Social service consult for discharge planning and possible supervised living arrangements.
--- NOTE | 2016-10-24 15:30 | PN ---
Progress Note, Physician History of Present Illness: stable no new issues no verbal - Current Medication List Current Medications: Active Medications Amino Acids (Prostat Sugar-Free Packet -) 30 ml PO BID@0800,1730 [facility] Last Admin: 10/24/16 08:17 Dose: 30 ml Docusate Sodium (Colace -) 100 mg PO BID [facility] Last Admin: 10/24/16 09:22 Dose: Not Given Heparin Sodium (Porcine) (Heparin -) 5,000 unit SQ BID [facility] Last Admin: 10/24/16 09:13 Dose: 5,000 unit Pantoprazole Sodium (Protonix 40mg Ivpb (Pre-Docked)) 100 mls @ 200 mls/hr IVPB DAILY [facility] Last Admin: 10/24/16 09:14 Dose: 200 mls/hr Dextrose (D5w -) 1,000 mls @ 75 mls/hr IV ASDIR [facility] Last Admin: 10/24/16 02:22 Dose: 75 mls/hr Vancomycin HCl (Vancomycin (Pre-Docked)) 250 mls @ 250 mls/hr IVPB DAILY [facility] Last Admin: 10/24/16 09:14 Dose: 250 mls/hr Memantine (Namenda -) 5 mg PO DAILY [facility] Last Admin: 10/24/16 09:13 Dose: 5 mg Miconazole Nitrate (Monistat-7 Vaginal Cream -) 1 applic VG HS [facility] Stop: 10/28/16 22:01 Last Admin: 10/23/16 21:56 Dose: 1 applic Phenytoin Sodium (Dilantin Injection -) 100 mg IVPB BID [facility] Last Admin: 10/24/16 09:13 Dose: 100 mg - Objective Vital Signs: Vital Signs Temperature 97.8 F 10/24/16 14:56 Pulse Rate 67 10/24/16 14:56 Respiratory Rate 20 10/24/16 08:00 Blood Pressure 120/65 10/24/16 14:56 O2 Sat by Pulse Oximetry (%) 97 10/24/16 09:00 Constitutional: Yes: Calm Eyes: Yes: Conjunctiva Clear Cardiovascular: Yes: Regular Rate and Rhythm Respiratory: Yes: Regular Gastrointestinal: Yes: Normal Bowel Sounds, Soft Musculoskeletal: Yes: WNL Extremities: Yes: WNL Neurological: Yes: Other Labs: CBC, BMP 10/24/16 06:30 10/24/16 06:30 INR, PTT INR 1.06 (0.82-1.09) 10/20/16 18:00 Assessment/Plan . Altered mental status-Possibly secondary to UTI. 2. Abdominal Pain undetermined ideology. 3. UTI 5. Seizure Disorder 6. Dementia enterococcus fecalis bed bound non verbal patient plan continue vanco supportive treatment will check vanco trough rest ct supportive measures
--- NOTE | 2016-10-24 16:33 | PN ---
Physical Exam: SUBJECTIVE: Patient seen and examined. She says she is feeling better. She is tolerating diet OBJECTIVE: Vital Signs Period Temp Pulse Resp BP Sys/Angela Pulse Ox Last 24 Hr 97.7 F-97.9 F 64-76 16-20 96-132/50-65 97-98 PE Neuro: alert, awake, nad HEENT: L sided cervical dystonia, no spasms noted Pulm: clear anteriorly CV: s1 s2 rrr no mrg Abd: s nt nd + bs Ext: warm, no le edema Laboratory Results - last 24 hr 10/21/16 10/24/16 10/24/16 08:25 06:30 06:30 WBC 6.7 RBC 3.20 L Hgb 10.4 L Hct 31.0 L MCV 96.8 H MCHC 33.4 RDW 15.2 Plt Count 274 MPV 8.2 Neutrophils % 73.3 Lymphocytes % 14.9 D Monocytes % 7.4 Eosinophils % 4.0 Basophils % 0.4 Sodium 139 Potassium 3.9 Chloride 103 Carbon Dioxide 28 Anion Gap 8 BUN 11 D Creatinine 0.4 L D Creat Clearance w eGFR > 60 Random Glucose 107 H Calcium 8.3 L Total Bilirubin 0.2 AST 153 H D ALT 128 H D Alkaline Phosphatase 99 D Total Protein 5.8 L Albumin 2.6 L Free/Total Phenytoin 0.7 L Active Medications Generic Name Dose Route Start Last Admin Trade Name Freq PRN Reason Stop Dose Admin Amino Acids 30 ml 10/23/16 17:30 10/24/16 08:17 Prostat Sugar-Free Packet - PO 30 ml BID@0800,1730 LEA Administration Docusate Sodium 100 mg 10/21/16 10:00 10/24/16 09:22 Colace - PO Not Given BID LEA Heparin Sodium (Porcine) 5,000 unit 10/20/16 23:45 10/24/16 09:13 Heparin - SQ 5,000 unit BID LEA Administration Pantoprazole Sodium 100 mls @ 200 mls/hr 10/22/16 10:00 10/24/16 09:14 Protonix 40mg Ivpb (Pre-Docked) IVPB 200 mls/hr DAILY LEA Administration Dextrose 1,000 mls @ 75 mls/hr 10/22/16 14:20 10/24/16 02:22 D5w - IV 75 mls/hr ASDIR LEA Administration Vancomycin HCl 250 mls @ 250 mls/hr 10/22/16 16:30 10/24/16 09:14 Vancomycin (Pre-Docked) IVPB 250 mls/hr DAILY LEA Administration Memantine 5 mg 10/21/16 10:00 10/24/16 09:13 Namenda - PO 5 mg DAILY LEA Administration Miconazole Nitrate 1 applic 10/22/16 22:00 10/23/16 21:56 Monistat-7 Vaginal Cream - VG 10/28/16 22:01 1 applic HS LEA Administration Phenytoin Sodium 100 mg 10/21/16 22:00 10/24/16 09:13 Dilantin Injection - IVPB 100 mg BID LEA Administration Imaging: - Head CT: Negative for bleed, masses or infarcts, cerebral atrophy negative Assessment: 89 year old female with a significant past medical history of dementia, AMS, anoxic brain injury, respiratory failure requiring intubation and several episodes of sepsis secondary to E. Coli UTI, now admitted with decreased appetite, increased lethargy and foul smelling purulent urine. 1. Entercococcus Faecalis UTI - Vanco daily (day 3) - Vanco trough before tomorrow dose 2. Altered Mental Status - Likely due to dementia and UTI - See above 3. Dementia - Continue Namenda 4. Cervical dystonia - To be treated electively w/ selvin as outpt - D/w neuro, consult appreciated 5. Seizures - Continue daily Phenytonin 100m BID 6. Failure to thrive - Tolerating diet, magic cup, prostat, HOB 45 degrees - Stop fluids - MBS shows no aspiration, lesion 7. Transaminitis - Will trend, previous abd xday only noting constipation 8. Constipation - Will start miralax - No BM in 2 days 9. PPX DVT ppx: Heparin sq Visit type - Emergency Visit Emergency Visit: Yes ED Registration Date: 10/20/16 Care time: The patient presented to the Emergency Department on the above date and was hospitalized for further evaluation of their emergent condition. - New Patient This patient is new to me today: Yes Date on this admission: 10/24/16 - Critical Care Critical Care patient: No
[2016-10-24] MEDS: POLYETHYLENE GLYCOL 3350 119 GM BTL PO SCH (17:27)
[2016-10-24] MEDS: MICONAZOLE NITRATE 2% VAGINAL CREAM 45 GM TUBE VG SCH (21:51)
[2016-10-24] MEDS: PHENYTOIN NA EXTENDED 100 MG CAPSULE (FP) PO SCH (21:52)
[2016-10-25 08:38] LABS: ALBUMIN 2.7 g/dl (3.4-5.0); ALK PHOS 102 U/L (45-117); ANION GAP 7 (8-16); BILIRUBIN,TOTAL 0.2 mg/dL (0.2-1.0); CALCIUM 8.3 mg/dL (8.5-10.1); CO2 25 mmol/L (21-32); CREATININE 0.3 mg/dL (0.55-1.02); GLUCOSE,RANDOM 94 mg/dL (74-106); SGOT/AST 70 U/L (15-37); SGPT/ALT 86 U/L (12-78); TOT PROT 6.1 g/dl (6.4-8.2)
[2016-10-25] MEDS: MEMANTINE HCL 5 MG TABLET (UD) PO SCH (10:21)
[2016-10-25] MEDS: DOCUSATE SODIUM 100 MG CAPSULE (FP) PO SCH (10:22)
[2016-10-25] MEDS: AMINO ACIDS/PROTEIN HYDROLYS SUGAR-FREE 30 ML PACKET PO SCH ×2 (10:22→17:48)
[2016-10-25] MEDS: HEPARIN NA (PORCINE) 5,000 UNITS/ML 1ML VIAL SQ SCH ×2 (10:22→22:01)
[2016-10-25] MEDS: PHENYTOIN NA EXTENDED 100 MG CAPSULE (FP) PO SCH (10:23)
[2016-10-25] MEDS: VANCOMYCIN 1 GRAM (PRE-DOCKED) 250 ML IVPB SCH (10:25)
[2016-10-25] MEDS: POLYETHYLENE GLYCOL 3350 119 GM BTL PO SCH (10:25)
--- NOTE | 2016-10-25 15:31 | PN ---
Physical Exam: SUBJECTIVE: Patient seen and examined. She is lethargic. She is eating when assisted, she will push you away if you try to take her blanket off. OBJECTIVE: Vital Signs Period Temp Pulse Resp BP Sys/Angela Pulse Ox Last 24 Hr 97.3 F-99.1 F 60-77 18-20 118-132/52-65 97 PE Neuro: alert, awake, nad HEENT: L sided cervical dystonia, no spasms noted, missing teeth Pulm: clear anteriorly, no cough, no signs of aspiration CV: s1 s2 rrr no mrg Abd: s nt nd + bs Ext: warm, no le edema Laboratory Results - last 24 hr 10/25/16 07:00 Sodium 138 Potassium 4.4 Chloride 106 Carbon Dioxide 25 Anion Gap 7 L BUN 19 H D Creatinine 0.3 L D Creat Clearance w eGFR > 60 Random Glucose 94 Calcium 8.3 L Total Bilirubin 0.2 AST 70 H D ALT 86 H D Alkaline Phosphatase 102 Total Protein 6.1 L Albumin 2.7 L Vancomycin Trough 7.196 Active Medications Generic Name Dose Route Start Last Admin Trade Name Leta PRN Reason Stop Dose Admin Amino Acids 30 ml 10/23/16 17:30 10/25/16 10:22 Prostat Sugar-Free Packet - PO 30 ml BID@0800,1730 LEA Administration Heparin Sodium (Porcine) 5,000 unit 10/20/16 23:45 10/25/16 10:22 Heparin - SQ 5,000 unit BID LEA Administration Vancomycin HCl 250 mls @ 250 mls/hr 10/22/16 16:30 10/25/16 10:25 Vancomycin (Pre-Docked) IVPB 250 mls/hr DAILY LEA Administration Memantine 5 mg 10/21/16 10:00 10/25/16 10:21 Namenda - PO 5 mg DAILY LEA Administration Miconazole Nitrate 1 applic 10/22/16 22:00 10/24/16 21:51 Monistat-7 Vaginal Cream - VG 10/28/16 22:01 1 applic HS LEA Administration Polyethylene Glycol 17 gm 10/24/16 17:00 10/25/16 10:25 Miralax (For Daily Use) - PO 17 grams DAILY LEA Administration Senna 8.8 mg 10/25/16 22:00 Senna Oral Solution - PO HS LEA Imaging: - Head CT: Negative for bleed, masses or infarcts, cerebral atrophy negative Assessment: 89 year old female with a significant past medical history of dementia, AMS, anoxic brain injury, respiratory failure requiring intubation and several episodes of sepsis secondary to E. Coli UTI, now admitted with decreased appetite, increased lethargy and foul smelling purulent urine. 1. Entercococcus Faecalis UTI - Vanco 1gm daily (day 4) - Vanco level subthereputic - Cr cl 11.5 - ID seeing 2. Seizures - Son concerned Phenytonin dose too high causing increased lethargy, last seizure in 08/2016 - D/w Neuro, will discontinue Phenytonin and observe if need be will resume at reduced dose 3. Altered Mental Status - Likely due to dementia and UTI - Sensorium appears to be improving, interacting with family during feeds 4. Dementia - Continue Namenda 5mg daily 5. Cervical dystonia - To be treated electively w/ botox as outpt, son aware 6. Failure to thrive - Tolerating diet, magic cup, prostat, HOB 45 degrees - MBS shows no aspiration, lesion 7. Transaminitis - Improved - Will trend, previous abd xday only noting constipation 8. Constipation - Miralax daily - Senna oral HS 9. PPX DVT: Heparin sq Visit type - Emergency Visit Emergency Visit: Yes ED Registration Date: 10/20/16 Care time: The patient presented to the Emergency Department on the above date and was hospitalized for further evaluation of their emergent condition. - New Patient This patient is new to me today: No - Critical Care Critical Care patient: No
[2016-10-25] MEDS ORDERED: PT OWN MED DRAWER 7, Y5N ONE (21:49)
[2016-10-25] MEDS: SENNOSIDES 8.8 MG/5 ML BULK BOTTLE PO SCH (22:01)
[2016-10-25] MEDS: MICONAZOLE NITRATE 2% VAGINAL CREAM 45 GM TUBE VG SCH (22:02)
[2016-10-26 08:29] LABS: ALBUMIN 2.8 g/dl (3.4-5.0); ANION GAP 8 (8-16); CALCIUM 8.6 mg/dL (8.5-10.1); CO2 26 mmol/L (21-32); GLUCOSE,RANDOM 88 mg/dL (74-106); MAGNESIUM 2.2 mg/dL (1.8-2.4); SGOT/AST 54 U/L (15-37)
[2016-10-26 08:31] LABS: ALK PHOS 90 U/L (45-117); BILIRUBIN,TOTAL 0.2 mg/dL (0.2-1.0); CREATININE 0.3 mg/dL (0.55-1.02); PHOSPHOROUS 3.7 mg/dL (2.5-4.9); SGPT/ALT 68 U/L (12-78)
[2016-10-26] MEDS: HEPARIN NA (PORCINE) 5,000 UNITS/ML 1ML VIAL SQ SCH ×2 (09:10→22:10)
[2016-10-26] MEDS: POLYETHYLENE GLYCOL 3350 119 GM BTL PO SCH (09:10)
[2016-10-26] MEDS: MEMANTINE HCL 5 MG TABLET (UD) PO SCH (09:10)
[2016-10-26] MEDS: VANCOMYCIN 1 GRAM (PRE-DOCKED) 250 ML IVPB SCH (09:11)
[2016-10-26] MEDS: AMINO ACIDS/PROTEIN HYDROLYS SUGAR-FREE 30 ML PACKET PO SCH ×2 (09:11→18:28)
[2016-10-26] MEDS ORDERED: PT OWN MED DRAWER 7, Y5N ONE ×2 (09:14→22:08)
--- NOTE | 2016-10-26 12:04 | PN ---
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
--- NOTE | 2016-10-26 13:35 | PN ---
Physical Exam: SUBJECTIVE: Patient seen and examined. She appears more lethargic today, however still responds to touch and name. No seizures noted overnight. OBJECTIVE: Vital Signs Period Temp Pulse Resp BP Sys/Angela Pulse Ox Last 24 Hr 97.4 F-98.3 F 69-77 18-21 123-135/56-62 98 PE Neuro: HEENT: L sided cervical dystonia, no spasms noted, missing teeth Pulm: clear anteriorly CV: s1 s2 rrr no mrg Abd: s nt nd + bs Ext: warm, no le edema Laboratory Results - last 24 hr 10/26/16 05:48 Sodium 140 Potassium 4.3 Chloride 106 Carbon Dioxide 26 Anion Gap 8 BUN 16 Creatinine 0.3 L Creat Clearance w eGFR > 60 Random Glucose 88 Calcium 8.6 Phosphorus 3.7 Magnesium 2.2 Total Bilirubin 0.2 AST 54 H D ALT 68 D Alkaline Phosphatase 90 Total Protein 6.0 L Albumin 2.8 L Active Medications Generic Name Dose Route Start Last Admin Trade Name Jarredq PRN Reason Stop Dose Admin Amino Acids 30 ml 10/23/16 17:30 10/26/16 09:11 Prostat Sugar-Free Packet - PO 30 ml BID@0800,1730 [facility] Administration Heparin Sodium (Porcine) 5,000 unit 10/20/16 23:45 10/26/16 09:10 Heparin - SQ 5,000 unit BID LEA Administration Vancomycin HCl 250 mls @ 250 mls/hr 10/22/16 16:30 10/26/16 09:11 Vancomycin (Pre-Docked) IVPB 250 mls/hr DAILY [facility]A Administration Memantine 5 mg 10/21/16 10:00 10/26/16 09:10 Namenda - PO 5 mg DAILY LEA Administration Miconazole Nitrate 1 applic 10/22/16 22:00 10/25/16 22:02 Monistat-7 Vaginal Cream - VG 10/28/16 22:01 1 applic HS LEA Administration Polyethylene Glycol 17 gm 10/24/16 17:00 10/26/16 09:10 Miralax (For Daily Use) - PO 17 grams DAILY [facility]A Administration Senna 8.8 mg 10/25/16 22:00 10/25/16 22:01 Senna Oral Solution - PO 8.8 mg HS LEA Administration Imaging: - Head CT: Negative for bleed, masses or infarcts, cerebral atrophy negative Assessment: 89 year old female with a significant past medical history of dementia, AMS, anoxic brain injury, respiratory failure requiring intubation and several episodes of sepsis secondary to E. Coli UTI, now admitted with decreased appetite, increased lethargy and foul smelling purulent urine. 1. Entercococcus Faecalis UTI - Vanco 1gm daily (day 5) - Vanco level subthereputic - Cr cl 11.5 - ID seeing 2. Seizures - No seizures overnight - Continue to hold Dilantin and observe 3. Altered Mental Status - Likely due to dementia and UTI 4. Dementia - Continue Namenda 5mg daily 5. Cervical dystonia - To be treated electively w/ botox as outpt, son aware 6. Failure to thrive - Tolerating diet, magic cup, prostat, HOB 45 degrees - MBS shows no aspiration, lesion 7. Transaminitis - Improved 8. Constipation - Miralax daily - Senna oral HS 9. PPX DVT: Heparin sq Visit type - Emergency Visit Emergency Visit: Yes ED Registration Date: 10/20/16 Care time: The patient presented to the Emergency Department on the above date and was hospitalized for further evaluation of their emergent condition. - New Patient This patient is new to me today: No - Critical Care Critical Care patient: No
--- NOTE | 2016-10-26 17:36 | PN ---
Progress Note, Physician History of Present Illness: stable no new issues no verbal patient is eating food - Current Medication List Current Medications: Active Medications Amino Acids (Prostat Sugar-Free Packet -) 30 ml PO BID@0800,1730 [facility] Last Admin: 10/26/16 09:11 Dose: 30 ml Heparin Sodium (Porcine) (Heparin -) 5,000 unit SQ BID [facility] Last Admin: 10/26/16 09:10 Dose: 5,000 unit Vancomycin HCl (Vancomycin (Pre-Docked)) 250 mls @ 250 mls/hr IVPB DAILY [facility] Last Admin: 10/26/16 09:11 Dose: 250 mls/hr Memantine (Namenda -) 5 mg PO DAILY [facility] Last Admin: 10/26/16 09:10 Dose: 5 mg Miconazole Nitrate (Monistat-7 Vaginal Cream -) 1 applic VG [facility] Stop: 10/28/16 22:01 Last Admin: 10/25/16 22:02 Dose: 1 applic Polyethylene Glycol (Miralax (For Daily Use) -) 17 gm PO DAILY [facility] Last Admin: 10/26/16 09:10 Dose: 17 grams Senna (Senna Oral Solution -) 8.8 mg PO HS [facility] Last Admin: 10/25/16 22:01 Dose: 8.8 mg - Objective Vital Signs: Vital Signs Temperature 98.1 F 10/26/16 14:05 Pulse Rate 72 10/26/16 14:05 Respiratory Rate 16 10/26/16 14:05 Blood Pressure 110/52 10/26/16 14:05 O2 Sat by Pulse Oximetry (%) 97 10/26/16 08:00 Constitutional: Yes: No Distress Neck: Yes: Supple Cardiovascular: Yes: Regular Rate and Rhythm Respiratory: Yes: Regular, CTA Bilaterally Gastrointestinal: Yes: Normal Bowel Sounds, Soft Neurological: Yes: Alert, Other Labs: CBC, BMP 10/24/16 06:30 10/26/16 05:48 INR, PTT INR 1.06 (0.82-1.09) 10/20/16 18:00 Assessment/Plan . Altered mental status-Possibly secondary to UTI. 2. Abdominal Pain undetermined ideology. 3. UTI 5. Seizure Disorder 6. Dementia enterococcus fecalis bed bound non verbal patient plan continue vanco supportive treatment will check vanco trough rest ct supportive measures
--- NOTE | 2016-10-26 17:53 | PN ---
Progress Note, Physician History of Present Illness: Continues to improve. Alert, eating and interacting with staff. - Current Medication List Current Medications: Active Medications Amino Acids (Prostat Sugar-Free Packet -) 30 ml PO BID@0800,1730 [facility] Last Admin: 10/26/16 09:11 Dose: 30 ml Heparin Sodium (Porcine) (Heparin -) 5,000 unit SQ BID [facility] Last Admin: 10/26/16 09:10 Dose: 5,000 unit Vancomycin HCl (Vancomycin (Pre-Docked)) 250 mls @ 250 mls/hr IVPB DAILY [facility] Last Admin: 10/26/16 09:11 Dose: 250 mls/hr Memantine (Namenda -) 5 mg PO DAILY [facility] Last Admin: 10/26/16 09:10 Dose: 5 mg Miconazole Nitrate (Monistat-7 Vaginal Cream -) 1 applic VG [facility] Stop: 10/28/16 22:01 Last Admin: 10/25/16 22:02 Dose: 1 applic Polyethylene Glycol (Miralax (For Daily Use) -) 17 gm PO DAILY [facility] Last Admin: 10/26/16 09:10 Dose: 17 grams Senna (Senna Oral Solution -) 8.8 mg PO HS [facility] Last Admin: 10/25/16 22:01 Dose: 8.8 mg - Objective Vital Signs: Vital Signs Temperature 98.1 F 10/26/16 14:05 Pulse Rate 72 10/26/16 14:05 Respiratory Rate 16 10/26/16 14:05 Blood Pressure 110/52 10/26/16 14:05 O2 Sat by Pulse Oximetry (%) 97 10/26/16 08:00 Constitutional: Yes: No Distress, Calm Neck: Yes: Other (restricted ROM with left sided head tilt moving all extremities purposefully.) Labs: CBC, BMP 10/24/16 06:30 10/26/16 05:48 INR, PTT INR 1.06 (0.82-1.09) 10/20/16 18:00 Assessment/Plan Cognitive function improving with treatment of co-morbid UTI P: Social service consult for outpatient assistance options and home health care.
[2016-10-26] MEDS: MICONAZOLE NITRATE 2% VAGINAL CREAM 45 GM TUBE VG SCH (22:10)
[2016-10-26] MEDS: SENNOSIDES 8.8 MG/5 ML BULK BOTTLE PO SCH (23:33)
[2016-10-27] MEDS: AMINO ACIDS/PROTEIN HYDROLYS SUGAR-FREE 30 ML PACKET PO SCH ×2 (08:25→16:59)
[2016-10-27] MEDS ORDERED: PT OWN MED DRAWER 7, Y5N ONE ×2 (09:22→21:43)
[2016-10-27] MEDS: POLYETHYLENE GLYCOL 3350 119 GM BTL PO SCH (09:51)
[2016-10-27] MEDS: HEPARIN NA (PORCINE) 5,000 UNITS/ML 1ML VIAL SQ SCH ×2 (09:52→22:00)
[2016-10-27] MEDS: MEMANTINE HCL 5 MG TABLET (UD) PO SCH (09:52)
[2016-10-27] MEDS: VANCOMYCIN 1 GRAM (PRE-DOCKED) 250 ML IVPB SCH (10:56)
--- NOTE | 2016-10-27 17:19 | PN ---
Physical Exam: SUBJECTIVE: Patient seen and examined. No acute changes. Appears at baseline OBJECTIVE: Vital Signs Period Temp Pulse Resp BP Sys/Angela Pulse Ox Last 24 Hr 97.2 F-98.7 F 60-94 16-18 119-148/47-72 96-97 PE Neuro: awake, NAD, responds to touch and voice HEENT: L sided cervical dystonia, no spasms noted, missing teeth Pulm: clear anteriorly CV: s1 s2 rrr no mrg Abd: s nt nd + bs Ext: warm, no le edema Laboratory Results - last 24 hr 10/27/16 09:30 Vancomycin Trough 10.759 H Active Medications Generic Name Dose Route Start Last Admin Trade Name Freq PRN Reason Stop Dose Admin Amino Acids 30 ml 10/23/16 17:30 10/27/16 16:59 Prostat Sugar-Free Packet - PO 30 ml BID@0800,1730 LEA Administration Heparin Sodium (Porcine) 5,000 unit 10/20/16 23:45 10/27/16 09:52 Heparin - SQ 5,000 unit BID LEA Administration Vancomycin HCl 250 mls @ 250 mls/hr 10/22/16 16:30 10/27/16 10:56 Vancomycin (Pre-Docked) IVPB 250 mls/hr DAILY LEA Administration Memantine 5 mg 10/21/16 10:00 10/27/16 09:52 Namenda - PO 5 mg DAILY LEA Administration Miconazole Nitrate 1 applic 10/22/16 22:00 10/26/16 22:10 Monistat-7 Vaginal Cream - VG 10/28/16 22:01 1 applic HS LEA Administration Polyethylene Glycol 17 gm 10/24/16 17:00 10/27/16 09:51 Miralax (For Daily Use) - PO 17 grams DAILY LEA Administration Senna 8.8 mg 10/25/16 22:00 10/26/16 23:33 Senna Oral Solution - PO 8.8 mg HS LEA Administration Imaging: - Head CT: Negative for bleed, masses or infarcts, cerebral atrophy negative Assessment: 89 year old female with a significant past medical history of dementia, AMS, anoxic brain injury, respiratory failure requiring intubation and several episodes of sepsis secondary to E. Coli UTI, now admitted with decreased appetite, increased lethargy and foul smelling purulent urine. 1. Entercococcus Faecalis UTI - Vanco 1gm daily (day 6) - Vanco level 10 - D/w above with ID 2. Seizures - No seizures overnight - Continue to hold Dilantin and observe per neuro, may need to resume at reduced dose 3. Altered Mental Status - Likely due to dementia and UTI 4. Dementia - Continue Namenda 5mg daily 5. Cervical dystonia - To be treated electively w/ botox as outpt, son aware 6. Failure to thrive - Tolerating diet, magic cup, prostat, HOB 45 degrees - MBS shows no aspiration, lesion 7. Transaminitis - Improved 8. Constipation - Miralax daily - Senna oral HS 9. PPX DVT: Heparin sq Visit type - Emergency Visit Emergency Visit: Yes ED Registration Date: 10/20/16 Care time: The patient presented to the Emergency Department on the above date and was hospitalized for further evaluation of their emergent condition. - New Patient This patient is new to me today: No - Critical Care Critical Care patient: No
[2016-10-27] MEDS: MICONAZOLE NITRATE 2% VAGINAL CREAM 45 GM TUBE VG SCH (21:59)
[2016-10-27] MEDS: SENNOSIDES 8.8 MG/5 ML BULK BOTTLE PO SCH (22:00)
[2016-10-28] MEDS: VANCOMYCIN 1 GRAM (PRE-DOCKED) 250 ML IVPB SCH (10:27)
[2016-10-28] MEDS: POLYETHYLENE GLYCOL 3350 119 GM BTL PO SCH (10:27)
[2016-10-28] MEDS: HEPARIN NA (PORCINE) 5,000 UNITS/ML 1ML VIAL SQ SCH ×2 (10:27→21:33)
[2016-10-28] MEDS: AMINO ACIDS/PROTEIN HYDROLYS SUGAR-FREE 30 ML PACKET PO SCH ×2 (10:27→17:39)
[2016-10-28] MEDS: MEMANTINE HCL 5 MG TABLET (UD) PO SCH (10:28)
--- NOTE | 2016-10-28 13:49 | PN ---
Physical Exam: SUBJECTIVE: Patient seen and examined. She seem more alert today, opening her eyes She dose rise her arms spontaneously. OBJECTIVE: Vital Signs Period Temp Pulse Resp BP Sys/Angela Pulse Ox Last 24 Hr 96.8 F-98.2 F 62-71 18-20 115-155/50-69 96 PE Neuro: awake, oriented to person, opens eyes UE motor 5/5 HEENT: L sided cervical dystonia, no spasms noted, missing teeth Pulm: clear anteriorly CV: s1 s2 rrr no mrg Abd: s nt nd + bs Ext: warm, no le edema Active Medications Generic Name Dose Route Start Last Admin Trade Name Freq PRN Reason Stop Dose Admin Amino Acids 30 ml 10/23/16 17:30 10/28/16 10:27 Prostat Sugar-Free Packet - PO 30 ml BID@0800,1730 LEA Administration Heparin Sodium (Porcine) 5,000 unit 10/20/16 23:45 10/28/16 10:27 Heparin - SQ 5,000 unit BID LEA Administration Vancomycin HCl 250 mls @ 250 mls/hr 10/22/16 16:30 10/28/16 10:27 Vancomycin (Pre-Docked) IVPB 250 mls/hr DAILY LEA Administration Memantine 5 mg 10/21/16 10:00 10/28/16 10:28 Namenda - PO 5 mg DAILY LEA Administration Miconazole Nitrate 1 applic 10/22/16 22:00 10/27/16 21:59 Monistat-7 Vaginal Cream - VG 10/28/16 22:01 1 applic HS LEA Administration Polyethylene Glycol 17 gm 10/24/16 17:00 10/28/16 10:27 Miralax (For Daily Use) - PO 17 grams DAILY LEA Administration Senna 8.8 mg 10/25/16 22:00 10/27/16 22:00 Senna Oral Solution - PO 8.8 mg HS LEA Administration Assessment: 89 year old female with a significant past medical history of dementia, AMS, anoxic brain injury, respiratory failure requiring intubation and several episodes of sepsis secondary to E. Coli UTI, now admitted with decreased appetite, increased lethargy and foul smelling purulent urine. 1. Entercococcus Faecalis UTI - Vanco 1gm daily (day 7) likely last dose today - ID to see 2. Seizures - No seizures noted since dilantin discontinued 10/26 - D/w neuro for resume for ppx or discontinue on d/c may need to resume at reduced dose 3. Altered Mental Status - Likely due to dementia and UTI 4. Dementia - Continue Namenda 5mg daily 5. Cervical dystonia - To be treated electively w/ botox as outpt, son aware 6. Failure to thrive - Tolerating diet, magic cup, prostat, HOB 45 degrees - MBS shows no aspiration, lesion 7. Transaminitis - Improved 8. Constipation - Miralax daily - Senna oral HS 9. PPX DVT: Heparin sq Visit type - Emergency Visit Emergency Visit: Yes ED Registration Date: 10/20/16 Care time: The patient presented to the Emergency Department on the above date and was hospitalized for further evaluation of their emergent condition. - New Patient This patient is new to me today: No - Critical Care Critical Care patient: No
--- NOTE | 2016-10-28 14:49 | PN ---
Progress Note, Physician History of Present Illness: patient stable no new issues - Current Medication List Current Medications: Active Medications Amino Acids (Prostat Sugar-Free Packet -) 30 ml PO BID@0800,1730 [facility] Last Admin: 10/28/16 10:27 Dose: 30 ml Heparin Sodium (Porcine) (Heparin -) 5,000 unit SQ BID [facility] Last Admin: 10/28/16 10:27 Dose: 5,000 unit Vancomycin HCl (Vancomycin (Pre-Docked)) 250 mls @ 250 mls/hr IVPB DAILY [facility] Last Admin: 10/28/16 10:27 Dose: 250 mls/hr Memantine (Namenda -) 5 mg PO DAILY [facility] Last Admin: 10/28/16 10:28 Dose: 5 mg Miconazole Nitrate (Monistat-7 Vaginal Cream -) 1 applic VG [facility] Stop: 10/28/16 22:01 Last Admin: 10/27/16 21:59 Dose: 1 applic Polyethylene Glycol (Miralax (For Daily Use) -) 17 gm PO DAILY [facility] Last Admin: 10/28/16 10:27 Dose: 17 grams Senna (Senna Oral Solution -) 8.8 mg PO [facility] Last Admin: 10/27/16 22:00 Dose: 8.8 mg - Objective Vital Signs: Vital Signs Temperature 98.5 F 10/28/16 14:19 Pulse Rate 69 10/28/16 14:19 Respiratory Rate 20 10/28/16 09:05 Blood Pressure 145/56 10/28/16 14:19 O2 Sat by Pulse Oximetry (%) 96 10/27/16 21:00 Constitutional: Yes: No Distress HENT: Yes: Atraumatic Neck: Yes: Supple Cardiovascular: Yes: Regular Rate and Rhythm Respiratory: Yes: Regular Gastrointestinal: Yes: Normal Bowel Sounds, Soft Musculoskeletal: Yes: WNL Extremities: Yes: WNL Labs: CBC, BMP 10/24/16 06:30 10/26/16 05:48 INR, PTT INR 1.06 (0.82-1.09) 10/20/16 18:00 Assessment/Plan . Altered mental status-Possibly secondary to UTI. 2. Abdominal Pain undetermined ideology. 3. UTI 5. Seizure Disorder 6. Dementia enterococcus fecalis bed bound non verbal patient plan continue vanco stop vanco after 7 days
[2016-10-28] MEDS ORDERED: PT OWN MED DRAWER 7, Y5N ONE (21:19)
[2016-10-28] MEDS: SENNOSIDES 8.8 MG/5 ML BULK BOTTLE PO SCH (21:33)
[2016-10-28] MEDS: MICONAZOLE NITRATE 2% VAGINAL CREAM 45 GM TUBE VG SCH (21:34)
[2016-10-29 09:04] VITALS: BP 124/55
[2016-10-29] MEDS: HEPARIN NA (PORCINE) 5,000 UNITS/ML 1ML VIAL SQ SCH (09:42)
[2016-10-29] MEDS: MEMANTINE HCL 5 MG TABLET (UD) PO SCH (09:44)
[2016-10-29] MEDS: AMINO ACIDS/PROTEIN HYDROLYS SUGAR-FREE 30 ML PACKET PO SCH (09:44)
[2016-10-29] MEDS: POLYETHYLENE GLYCOL 3350 119 GM BTL PO SCH (09:45)
[2016-10-29] MEDS ORDERED: PHENYTOIN NA EXTENDED 100 MG CAPSULE (FP) PO SCH (10:00)
--- NOTE | 2016-10-29 11:46 | PN ---
Progress Note (short form) - Note Progress Note: Progress Note, Physician History of Present Illness: patient seen previously by Dr. Nick. Nonverbal, spoke with nurse. No new events overnight. Dilantin had been discontinued but I would not suddenly stop this medication. DIlantin restarted and would recommend a gradual taper as outpatient when she is not acutely ill. Active Medications Amino Acids (Prostat Sugar-Free Packet -) 30 ml PO BID@0800,1730 [facility] Last Admin: 10/29/16 09:44 Dose: 30 ml Heparin Sodium (Porcine) (Heparin -) 5,000 unit SQ BID [facility] Last Admin: 10/29/16 09:42 Dose: 5,000 unit Memantine (Namenda -) 5 mg PO DAILY [facility] Last Admin: 10/29/16 09:44 Dose: 5 mg Phenytoin Sodium (Dilantin -) 100 mg PO DAILY [facility] Last Admin: 10/29/16 09:44 Dose: 100 mg Polyethylene Glycol (Miralax (For Daily Use) -) 17 gm PO DAILY [facility] Last Admin: 10/29/16 09:45 Dose: 17 grams Senna (Senna Oral Solution -) 8.8 mg PO HS [facility] Last Admin: 10/28/16 21:33 Dose: 8.8 mg Vital Signs Temperature 96.8 F L 10/29/16 09:04 Pulse Rate 57 L 10/29/16 09:04 Respiratory Rate 18 10/29/16 09:04 Blood Pressure 124/55 10/29/16 09:04 O2 Sat by Pulse Oximetry (%) 96 10/28/16 21:00 Constitutional: Yes: No Distress, Calm Neck: Yes: Other (restricted ROM with left sided head tilt moving all extremities purposefully.) Labs: CBCD WBC 6.7 K/mm3 (4.0-10.0) 10/24/16 06:30 RBC 3.20 M/mm3 (3.60-5.2) L 10/24/16 06:30 Hgb 10.4 GM/dL (10.7-15.3) L 10/24/16 06:30 Hct 31.0 % (32.4-45.2) L 10/24/16 06:30 MCV 96.8 fl (80-96) H 10/24/16 06:30 MCHC 33.4 g/dl (32.0-36.0) 10/24/16 06:30 RDW 15.2 % (11.6-15.6) 10/24/16 06:30 Plt Count 274 K/MM3 (134-434) 10/24/16 06:30 MPV 8.2 fl (7.5-11.1) 10/24/16 06:30 CMP Sodium 140 mmol/L (136-145) 10/26/16 05:48 Potassium 4.3 mmol/L (3.5-5.1) 10/26/16 05:48 Chloride 106 mmol/L (98-107) 10/26/16 05:48 Carbon Dioxide 26 mmol/L (21-32) 10/26/16 05:48 Anion Gap 8 (8-16) 10/26/16 05:48 BUN 16 mg/dL (7-18) 10/26/16 05:48 Creatinine 0.3 mg/dL (0.55-1.02) L 10/26/16 05:48 Creat Clearance w eGFR > 60 (>60) 10/26/16 05:48 Calcium 8.6 mg/dL (8.5-10.1) 10/26/16 05:48 Total Bilirubin 0.2 mg/dL (0.2-1.0) 10/26/16 05:48 AST 54 U/L (15-37) H D 10/26/16 05:48 ALT 68 U/L (12-78) D 10/26/16 05:48 Alkaline Phosphatase 90 U/L (45-117) 10/26/16 05:48 Total Protein 6.0 g/dl (6.4-8.2) L 10/26/16 05:48 Albumin 2.8 g/dl (3.4-5.0) L 10/26/16 05:48 Assessment/Plan Cognitive function improving with treatment of co-morbid UTI Patient seen previously by Dr. Nick. Nonverbal, spoke with nurse. No new events overnight. Dilantin had been discontinued but I would not suddenly stop this medication. DIlantin restarted and would recommend a gradual taper as outpatient when she is not acutely ill. Social service consult for outpatient assistance options and home health care.
--- NOTE | 2016-10-29 13:19 | PN ---
Physical Exam: SUBJECTIVE: Patient seen and examined OBJECTIVE: Vital Signs Period Temp Pulse Resp BP Sys/Angela Pulse Ox Last 24 Hr 96.8 F-98.5 F 57-69 18-18 104-145/46-70 96 GENERAL: The patient is awake, alert, and fully oriented, in no acute distress. HEAD: Normal with no signs of trauma. EYES: PERRL, extraocular movements intact, sclera anicteric, conjunctiva clear. No ptosis. ENT: Ears normal, nares patent, oropharynx clear without exudates, moist mucous membranes. NECK: Trachea midline, full range of motion, supple. LUNGS: Breath sounds equal, clear to auscultation bilaterally, no wheezes, no crackles, no accessory muscle use. HEART: Regular rate and rhythm, S1, S2 without murmur, rub or gallop. ABDOMEN: Soft, nontender, nondistended, normoactive bowel sounds, no guarding, no rebound, no hepatosplenomegaly, no masses. EXTREMITIES: 2+ pulses, warm, well-perfused, no edema. NEUROLOGICAL: Cranial nerves II through XII grossly intact. Normal speech, gait not observed. PSYCH: Normal mood, normal affect. SKIN: Warm, dry, normal turgor, no rashes or lesions noted Active Medications Generic Name Dose Route Start Last Admin Trade Name Leta PRN Reason Stop Dose Admin Amino Acids 30 ml 10/23/16 17:30 10/29/16 09:44 Prostat Sugar-Free Packet - PO 30 ml BID@0800,1730 LEA Administration Heparin Sodium (Porcine) 5,000 unit 10/20/16 23:45 10/29/16 09:42 Heparin - SQ 5,000 unit BID LEA Administration Memantine 5 mg 10/21/16 10:00 10/29/16 09:44 Namenda - PO 5 mg DAILY LEA Administration Phenytoin Sodium 100 mg 10/29/16 10:00 10/29/16 09:44 Dilantin - PO 100 mg DAILY LEA Administration Polyethylene Glycol 17 gm 10/24/16 17:00 10/29/16 09:45 Miralax (For Daily Use) - PO 17 grams DAILY LEA Administration Senna 8.8 mg 10/25/16 22:00 10/28/16 21:33 Senna Oral Solution - PO 8.8 mg HS LEA Administration ASSESSMENT/PLAN:
--- NOTE | 2016-10-29 13:21 | DS ---
Physical Exam: SUBJECTIVE: Patient seen and examined at bedside, being fed lunch. Bedbound, nonverbal. OBJECTIVE: Vital Signs Period Temp Pulse Resp BP Sys/Angela Pulse Ox Last 24 Hr 96.8 F-98.5 F 57-69 18-18 104-145/46-70 96 PHYSICAL EXAM GENERAL: The patient is awake. Nonverbal at baseline. HEAD: Normal with no signs of trauma. LUNGS: Breath sounds equal, clear to auscultation bilaterally, no wheezes, no crackles, no accessory muscle use. HEART: Regular rate and rhythm, S1, S2 without murmur, rub or gallop. ABDOMEN: Soft, nontender, nondistended, normoactive bowel sounds, no guarding, no rebound, no hepatosplenomegaly, no masses. EXTREMITIES: 2+ pulses, warm, well-perfused, no edema. NEUROLOGICAL: Cranial nerves II through XII grossly intact. Normal speech, gait not observed. LABS CBCD WBC 6.7 K/mm3 (4.0-10.0) 10/24/16 06:30 RBC 3.20 M/mm3 (3.60-5.2) L 10/24/16 06:30 Hgb 10.4 GM/dL (10.7-15.3) L 10/24/16 06:30 Hct 31.0 % (32.4-45.2) L 10/24/16 06:30 MCV 96.8 fl (80-96) H 10/24/16 06:30 MCHC 33.4 g/dl (32.0-36.0) 10/24/16 06:30 RDW 15.2 % (11.6-15.6) 10/24/16 06:30 Plt Count 274 K/MM3 (134-434) 10/24/16 06:30 MPV 8.2 fl (7.5-11.1) 10/24/16 06:30 CMP Sodium 140 mmol/L (136-145) 10/26/16 05:48 Potassium 4.3 mmol/L (3.5-5.1) 10/26/16 05:48 Chloride 106 mmol/L (98-107) 10/26/16 05:48 Carbon Dioxide 26 mmol/L (21-32) 10/26/16 05:48 Anion Gap 8 (8-16) 10/26/16 05:48 BUN 16 mg/dL (7-18) 10/26/16 05:48 Creatinine 0.3 mg/dL (0.55-1.02) L 10/26/16 05:48 Creat Clearance w eGFR > 60 (>60) 10/26/16 05:48 Calcium 8.6 mg/dL (8.5-10.1) 10/26/16 05:48 Total Bilirubin 0.2 mg/dL (0.2-1.0) 10/26/16 05:48 AST 54 U/L (15-37) H D 10/26/16 05:48 ALT 68 U/L (12-78) D 10/26/16 05:48 Alkaline Phosphatase 90 U/L (45-117) 10/26/16 05:48 Total Protein 6.0 g/dl (6.4-8.2) L 10/26/16 05:48 Albumin 2.8 g/dl (3.4-5.0) L 10/26/16 05:48 HOSPITAL COURSE: Date of Admission:10/20/16 Date of Discharge: 10/29/16 Assessment: 89 year old female with a significant past medical history of dementia, AMS, anoxic brain injury, respiratory failure requiring intubation and several episodes of sepsis secondary to E. Coli UTI, admitted with decreased appetite, increased lethargy and foul smelling purulent urine. 1. Entercococcus Faecalis UTI - Vanco 1gm daily x 7 days 2. Seizures - No seizures noted since dilantin discontinued 10/26 - restart dilantin at lower dose, 100mg daily 3. Metabolic encephalopathy - secondary to UTI - resolved, back to baseline 4. Dementia - Continue Namenda 5mg daily 5. Cervical dystonia - To be treated electively w/ botox as outpt, son aware 6. Failure to thrive - Tolerating diet, magic cup, prostat, HOB 45 degrees - MBS shows no aspiration, lesion 7. Transaminitis - Improved 8. Constipation - Miralax daily - Senna oral HS Minutes to complete discharge: 35 Discharge Summary Reason For Visit: UTI Current Active Problems UTI (urinary tract infection) (Acute) Condition: Improved - Instructions Diet, Activity, Other Instructions: Return to the emergency department for any new or worsening symptoms. Your dilantin dose has been changed to 100mg once daily. Referrals: STAFF,NOT ON [Primary Care Provider] - Disposition: HOME - Home Medications Comprehensive Discharge Medication List: Ambulatory Orders Carboxymethylcellulose Sodium [Refresh Plus] 1 each OP BID PRN 06/22/16 Nystatin Ointment [Mycostatin Ointment -] 1 applic TP BID PRN 06/22/16 Docusate Liquid [Colace Liquid -] 100 mg PO TID #473 ml 09/14/16 Memantine HCl [Namenda Liquid] 5 mg PO DAILY #30 ml 09/14/16 Phenytoin Na Extended [Dilantin -] 100 mg PO BID #60 capsule 09/14/16 Polyethylene Glycol 3350 [Miralax 255 gm Btl -] 17 gm PO DAILY #1 bottle This patient is new to me today: Yes Date on this admission: 10/29/16 Emergency Visit: Yes ED Registration Date: 10/20/16 Care time: The patient presented to the Emergency Department on the above date and was hospitalized for further evaluation of their emergent condition. Critical Care patient: No - Discharge Referral Referred to [facility] No
--- NOTE | 2016-10-29 15:37 | PN ---
Progress Note, Physician History of Present Illness: patient stable no new issues - Current Medication List Current Medications: Active Medications Amino Acids (Prostat Sugar-Free Packet -) 30 ml PO BID@0800,1730 [facility] Last Admin: 10/29/16 09:44 Dose: 30 ml Heparin Sodium (Porcine) (Heparin -) 5,000 unit SQ BID [facility] Last Admin: 10/29/16 09:42 Dose: 5,000 unit Memantine (Namenda -) 5 mg PO DAILY [facility] Last Admin: 10/29/16 09:44 Dose: 5 mg Phenytoin Sodium (Dilantin -) 100 mg PO DAILY [facility] Last Admin: 10/29/16 09:44 Dose: 100 mg Polyethylene Glycol (Miralax (For Daily Use) -) 17 gm PO DAILY [facility] Last Admin: 10/29/16 09:45 Dose: 17 grams Senna (Senna Oral Solution -) 8.8 mg PO HS [facility] Last Admin: 10/28/16 21:33 Dose: 8.8 mg - Objective Vital Signs: Vital Signs Temperature 96.8 F L 10/29/16 09:04 Pulse Rate 57 L 10/29/16 09:04 Respiratory Rate 18 10/29/16 09:04 Blood Pressure 124/55 10/29/16 09:04 O2 Sat by Pulse Oximetry (%) 96 10/29/16 09:00 Constitutional: Yes: No Distress, Calm Respiratory: Yes: Regular Gastrointestinal: Yes: Normal Bowel Sounds, Soft Neurological: Yes: Alert, Other Psychiatric: Yes: Alert Labs: CBC, BMP 10/24/16 06:30 10/26/16 05:48 INR, PTT INR 1.06 (0.82-1.09) 10/20/16 18:00 Assessment/Plan . Altered mental status-Possibly secondary to UTI. 2. Abdominal Pain undetermined ideology. 3. UTI 5. Seizure Disorder 6. Dementia enterococcus fecalis bed bound non verbal patient plan contiue supportive measures nutrition
[2016-10-29 15:47] VITALS: PULSE 65; TEMP 97.7
== END 2016-10-29 15:35 | disposition home or self-care (01) | DRG 463 ==
LOC: JER 17:24 → J6S 21:48
PROVIDERS: ADMIT Internal Medicine; ATTEND Nurse Practitioner Acute Care
DX: N39.0 Urinary tract infection, site not specified (principal); G93.41 Metabolic encephalopathy; B95.2 Enterococcus as the cause of diseases classified elsewhere; R62.7 Adult failure to thrive; R74.0 Nonspecific elevation of levels of transaminase and lactic acid dehydrogenase [LDH]; K59.00 Constipation, unspecified; G40.909 Epilepsy, unspecified, not intractable, without status epilepticus; G24.8 Other dystonia; R64 Cachexia; Z68.1 Body mass index [BMI] 19.9 or less, adult; G93.1 Anoxic brain damage, not elsewhere classified; B48.8 Other specified mycoses; Z74.01 Bed confinement status
CPT/HCPCS: 36415; 70450-TC; 71010-TC; 74020-TC; 74230-TC; 80048; 80053; 80186; 81003; 81015; 82150; 83605; 83690; 83735; 84100; 85025; 85027; 85610; 86850; 86900; 86901; 87040; 87086; 87186; 92611-GN; 93005; 93010; 99285-25; G0480; J1644

== ENCOUNTER 2017-01-21 22:20 | Inpatient (IN) | payer OTHER ==
[2017-01-21 22:44] VITALS: BMI 21.4
--- NOTE | 2017-01-21 23:03 | PDOC ---
History of Present Illness - History of Present Illness Initial Comments: 01/21/17 23:46 Patient is a petite 89 year old female with significant medical hx of seizure disorder, functional quadriplegia, dementia, anoxic brain injury, respiratory failure requiring intubation x 2, and several episodes of sepsis secondary to UTI, who is presenting to the ED with increased lethargy for the past week. Patient is unable to provide history and thus history was provided by son. Per son, the patient was noted to have increased sputum production with cough and sneezing over the past week. The patient has also been having difficulty keeping her eyes open. The patient did eat meals today but not as much as her usual. The patient is non-verbal and non-ambulatory. PMD: Mika Dickerson MD Surgical Hx: Cyst removal, cataract sx, <Shena Mora - Last Filed: 01/21/17 23:46> <Rufina Brennan - Last Filed: 01/23/17 02:26> - General Chief Complaint: Weakness Stated Complaint: WEAKNESS Time Seen by Provider: 01/21/17 22:44 Past History <Shena Mora - Last Filed: 01/21/17 23:46> - Past Medical History Anemia: No Asthma: No Cancer: No Cardiac Disorders: No COPD: No CHF: No Dementia: Yes Diabetes: No GI Disorders: No Disorders: Yes (UTI) HTN: No Hypercholesterolemia: No Liver Disease: No Psychiatric Problems: Yes (dementia) Seizures: Yes Thyroid Disease: No - Surgical History Cardiac Surgery: No Lung Surgery: No Neurologic Surgery: No - Immunization History Immunization Up to Date: Yes - Psycho/Social/Smoking Cessation Hx Anxiety: No Suicidal Ideation: No Smoking History: Never smoked Have you smoked in the past 12 months: No Hx Alcohol Use: No Drug/Substance Use Hx: No Substance Use Type: None Hx Substance Use Treatment: No <Rufina Brennan - Last Filed: 01/23/17 02:26> - Past Medical History Allergies/Adverse Reactions: Allergies Allergy/AdvReac Type Severity Reaction Status Date / Time Penicillins Allergy Verified 01/21/17 22:38 carbidopa AdvReac Verified 01/21/17 22:38 levetiracetam [From Kera] AdvReac Verified 01/21/17 22:38 mirtazapine AdvReac Verified 01/21/17 22:38 Home Medications: Ambulatory Orders Memantine HCl [Namenda Liquid] 5 mg PO DAILY #30 ml 09/14/16 Phenytoin Na Extended [Dilantin -] 100 mg PO DAILY #30 capsule 10/29/16 Review of Systems - Review of Systems Comments:: 01/21/17 23:47 Patient unable to provide ROS. <MorganMiltonShena - Last Filed: 01/21/17 23:46> *Physical Exam - Vital Signs Last Vital Signs Temp Pulse Resp BP Pulse Ox 97.8 F 60 20 146/49 98 01/21/17 22:38 01/21/17 22:38 01/21/17 22:38 01/21/17 22:38 01/21/17 22:38 - Physical Exam Comments: 01/21/17 23:48 GENERAL: Petite. Awake. No acute distress. HEENT: Normocephalic, atraumatic. Chronic ptosis of the right eyelid. Left eyelid crusted. No conjunctival pallor. Sclera are non-icteric. Dry mucous membranes. Oropharynx is clear. NECK: Supple. 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 Cervical dystonia. No JVD. Carotid pulses 2+ and symmetric, without bruits. No thyromegaly. No lymphadenopathy. CARDIOVASCULAR: Regular rate and rhythm. No murmurs, rubs, or gallops. Distal pulses are 2+ and symmetric. PULMONARY: No evidence of respiratory distress. Lungs clear to auscultation bilaterally. No wheezing, rales or rhonchi. ABDOMINAL: Soft. Non-tender. Non-distended. No rebound or guarding. No organomegaly. Normoactive bowel sounds. MUSCULOSKELETAL: Normal range of motion at all joints. No bony deformities or tenderness. No CVA tenderness. EXTREMITIES: No cyanosis. No clubbing. No edema. No calf tenderness. SKIN: Warm and dry. Normal capillary refill. No rashes. No jaundice. NEUROLOGICAL: Awake, non-verbal. Non-ambulatory chronically. Cranial nerves 2-12 intact. <MorganDandrea - Last Filed: 01/21/17 23:46> - Vital Signs Last Vital Signs Temp Pulse Resp BP Pulse Ox 97.8 F 60 20 146/49 98 01/21/17 22:38 01/21/17 22:38 01/21/17 22:38 01/21/17 22:38 01/21/17 22:38 <Rufina Brennan - Last Filed: 01/23/17 02:26> ED Treatment Course - RADIOLOGY Radiograph Interpretation: 01/21/17 23:52 Chest X-Ray Impression: No significant interval change or acute lung disease is present. Reported By: Rebel Jacobsen MD <Shena Mora - Last Filed: 01/21/17 23:46> - LABORATORY CBC & Chemistry Diagram: 01/22/17 00:09 01/22/17 00:09 <Rufina Brennan - Last Filed: 01/23/17 02:26> Medical Decision Making - Medical Decision Making 01/22/17 17:46 Plan as a sinus patient last seen. She was brought in by her son with complaint of respiratory problems and persistent productive cough. she was afebrile and was not hypoxic. While she was in the emergency department she never coughed. Her chest x-ray did not show any infiltrates. The son said that she had increasing weakness -urinalysis was sent which was negative 01/23/17 02:25 <Rufina Brennan - Last Filed: 01/23/17 02:26> *DC/Admit/Observation/Transfer - Attestations Scribe Attestion: 01/21/17 23:54 Documentation prepared by Shena Mora, acting as medical driver for Rufina Brennan MD. <Shena Mora - Last Filed: 01/21/17 23:46> <Rufina Brennan - Last Filed: 01/23/17 02:26> Diagnosis at time of Disposition: Seizure disorder, focal motor, Altered mental status Dementia Qualifiers: Dementia type: unspecified type Dementia behavioral disturbance: without behavioral disturbance Qualified Code(s): F03.90 - Unspecified dementia without behavioral disturbance - Discharge Dispostion Condition at time of disposition: Stable - Referrals - Patient Instructions
[2017-01-22] MEDS: SODIUM CHLORIDE 1,000 ML IV SCH ×2 (00:26→22:42)
[2017-01-22 00:56] LABS: INR 1.06 (0.82-1.09); PROTHROMBIN TIME (PATIENT) 11.7 SEC (9.98-11.88)
[2017-01-22 01:02] LABS: BASOPHIL 0.8 % (0-2.0); EOSINOPHIL 2.1 % (0-4.5); MCHC 32.9 g/dl (32.0-36.0); MEAN CELL VOLUME 94.1 fl (80-96); MEAN PLT VOLUME 8.3 fl (7.5-11.1); NEUTROPHILS 69.3 % (42.8-82.8); PLATELET COUNT 245 K/MM3 (134-434); RDW 12.9 % (11.6-15.6)
[2017-01-22 01:14] LABS: ALBUMIN 3.3 g/dl (3.4-5.0); ANION GAP 11 (8-16); BILIRUBIN,TOTAL 0.3 mg/dL (0.2-1.0); CALCIUM 8.4 mg/dL (8.5-10.1); CO2 26 mmol/L (21-32); CREATININE 0.3 mg/dL (0.55-1.02); GLUCOSE,RANDOM 92 mg/dL (74-106); SGOT/AST 24 U/L (15-37); SGPT/ALT 24 U/L (12-78); TOT PROT 6.6 g/dl (6.4-8.2)
[2017-01-22 01:17] LABS: ALK PHOS 69 U/L (45-117); TROPONIN I < 0.02 ng/ml (0.00-0.05)
[2017-01-22 02:25] LABS: URINE APPEARANCE CLEAR; URINE BILIRUBIN NEGATIVE (NEGATIVE); URINE BLOOD NEGATIVE (NEGATIVE); URINE COLOR LTYELLOW; URINE GLUCOSE (UA) NEGATIVE (NEGATIVE); URINE KETONE NEGATIVE (NEGATIVE); URINE LEUK ESTERASE NEGATIVE (NEGATIVE); URINE NITRITE NEGATIVE (NEGATIVE); URINE PROTEIN NEGATIVE (NEGATIVE); URINE UROBILINOGEN NEGATIVE E.U./dl (0.2-1.0)
[2017-01-22] MEDS ORDERED: PHENYTOIN SODIUM 100 MG/2 ML VIAL IVPB ONE (03:16)
[2017-01-22] MEDS ORDERED: PHENYTOIN SODIUM 100 MG/2 ML VIAL ONE (03:47)
--- NOTE | 2017-01-22 10:44 | EKG ---
Test Reason : Blood Pressure : / mmHG Vent. Rate : 065 BPM Atrial Rate : 065 BPM P-R Int : 178 ms QRS Dur : 062 ms QT Int : 414 ms P-R-T Axes : 054 -38 028 degrees QTc Int : 430 ms SINUS RHYTHM WITH PREMATURE ATRIAL COMPLEXES LEFT AXIS DEVIATION ABNORMAL ECG WHEN COMPARED WITH ECG OF 20-OCT-2016 17:50, NONSPECIFIC T WAVE ABNORMALITY, WORSE IN LATERAL LEADS CLINICAL CORRELATION IS RECOMMENDED Confirmed by HALLE PENA, TRENT ([id number]) on 01/22/2017 10:44:24 AM Referred By: Confirmed By:TRENT NERI MD
[2017-01-22] MEDS ORDERED: SODIUM CHLORIDE 1,000 ML IV STA (11:36)
--- NOTE | 2017-01-22 13:29 | PDOC ---
*Physical Exam - Vital Signs Last Vital Signs Temp Pulse Resp BP Pulse Ox 97.8 F 67 16 146/92 100 01/21/17 22:38 01/22/17 06:31 01/22/17 06:31 01/22/17 06:31 01/22/17 06:31 ED Treatment Course - LABORATORY CBC & Chemistry Diagram: 01/22/17 00:09 01/22/17 00:09 - ADDITIONAL ORDERS Additional order review: Laboratory Results 01/22/17 01/22/17 01/22/17 02:18 00:09 00:09 Urine Color Ltyellow Urine Appearance Clear Urine pH 7.0 Ur Specific [place] 1.015 Urine Protein Negative Urine Glucose (UA) Negative Urine Ketones Negative Urine Blood Negative Urine Nitrite Negative Urine Bilirubin Negative Urine Urobilinogen Negative Ur Leukocyte Esterase Negative Phenytoin < 2.5 L D Blood Type A POSITIVE Antibody Screen Negative 01/22/17 00:09 RBC 4.10 D MCV 94.1 MCHC 32.9 RDW 12.9 D MPV 8.3 Neutrophils % 69.3 Lymphocytes % 17.8 Monocytes % 10.0 Eosinophils % 2.1 Basophils % 0.8 - RADIOLOGY Radiology Studies Ordered: Category Date Time Status HEAD CT WITHOUT CONTRAST [CT] Stat CT Scan 01/22/17 11:56 Ordered - Medications Given in the ED: ED Medications Discontinued Medications Generic Name Dose Route Start Last Admin Trade Name Leta PRN Reason Stop Dose Admin Phenytoin Sodium 750 mg 01/22/17 03:16 01/22/17 04:03 Dilantin Injection - IVPB 01/22/17 03:17 750 mg ONCE ONE Administration Progress Note - Progress Note Progress Note: The patient was endorsed to me by Dr. Valenzuela at 7am as pending discharge. However, the family raised concern that she was very somnolent and would not be able to take her medications or be adequately hydrated at home. I have observed the patient in the ED and have re-evaluated her at this time. I find that she is quite somnolent and not easily aroused. Her vital signs are normal. My plan is to obtain a CT scan of the head and to admit the patient to observation for neurology checks and IVF hydration. *DC/Admit/Observation/Transfer Diagnosis at time of Disposition: Seizure disorder, focal motor, Altered mental status Dementia Qualifiers: Dementia type: unspecified type Dementia behavioral disturbance: without behavioral disturbance Qualified Code(s): F03.90 - Unspecified dementia without behavioral disturbance - Discharge Dispostion Condition at time of disposition: Stable Admit: Yes - Referrals Referrals: Mika Dickerson MD, [Primary Care Provider] - - Patient Instructions Printed Discharge Instructions: DI for Seizure Disorder -- Adult Additional Instructions: please take your seizure medication as prescribed by your doctor followup with your regular physician - Post Discharge Activity
--- NOTE | 2017-01-22 14:28 | HP ---
CHIEF COMPLAINT: PCP: HISTORY OF PRESENT ILLNESS: ER course was notable for: (1) (2) (3) Recent Travel: PAST MEDICAL HISTORY: PAST SURGICAL HISTORY: Social History: Smoking: Alcohol: Drugs: Family History: Allergies Penicillins Allergy (Verified 01/21/17 22:38) carbidopa Adverse Reaction (Verified 01/21/17 22:38) levetiracetam [From [facility]] Adverse Reaction (Verified 01/21/17 22:38) mirtazapine Adverse Reaction (Verified 01/21/17 22:38) HOME MEDICATIONS: Home Medications Medication Instructions Recorded Memantine HCl [Namenda Liquid] 5 mg PO DAILY #30 ml 09/14/16 Phenytoin Na Extended [Dilantin -] 100 mg PO DAILY #30 capsule 10/29/16 REVIEW OF SYSTEMS CONSTITUTIONAL: Absent: fever, chills, diaphoresis, generalized weakness, malaise, loss of appetite, weight change HEENT: Absent: rhinorrhea, nasal congestion, throat pain, throat swelling, difficulty swallowing, mouth swelling, ear pain, eye pain, visual changes CARDIOVASCULAR: Absent: chest pain, syncope, palpitations, irregular heart rate, lightheadedness , peripheral edema RESPIRATORY: Absent: cough, shortness of breath, dyspnea with exertion, orthopnea, wheezing, stridor, hemoptysis GASTROINTESTINAL: Absent: abdominal pain, abdominal distension, nausea, vomiting, diarrhea, constipation, melena, hematochezia GENITOURINARY: Absent: dysuria, frequency, urgency, hesitancy, hematuria, flank pain, genital pain MUSCULOSKELETAL: Absent: myalgia, arthralgia, joint swelling, back pain, neck pain SKIN: Absent: rash, itching, pallor HEMATOLOGIC/IMMUNOLOGIC: Absent: easy bleeding, easy bruising, lymphadenopathy, frequent infections ENDOCRINE: Absent: unexplained weight gain, unexplained weight loss, heat intolerance, cold intolerance NEUROLOGIC: Absent: headache, focal weakness or paresthesias, dizziness, unsteady gait, seizure, mental status changes, bladder or bowel incontinence PSYCHIATRIC: Absent: anxiety, depression, suicidal or homicidal ideation, hallucinations. PHYSICAL EXAMINATION GENERAL: Awake, alert, and fully oriented, in no acute distress. HEAD: Normal with no signs of trauma. EYES: Pupils equal, round and reactive to light, extraocular movements intact, sclera anicteric, conjunctiva clear. No lid lag. EARS, NOSE, THROAT: Ears normal, nares patent, oropharynx clear without exudates. Moist mucous membranes. NECK: Normal range of motion, supple without lymphadenopathy, JVD, or masses. LUNGS: Breath sounds equal, clear to auscultation bilaterally. No wheezes, and no crackles. No accessory muscle use. HEART: Regular rate and rhythm, normal S1 and S2 without murmur, rub or gallop. ABDOMEN: Soft, nontender, not distended, normoactive bowel sounds, no guarding, no rebound, no masses. No hepatomegaly or splenomegaly. MUSCULOSKELETAL: Normal range of motion at all joints. No bony deformities or tenderness. No CVA tenderness. UPPER EXTREMITIES: 2+ pulses, warm, well-perfused. No cyanosis. No clubbing. No peripheral edema. LOWER EXTREMITIES: 2+ pulses, warm, well-perfused. No calf tenderness. No peripheral edema. NEUROLOGICAL: Cranial nerves II-XII intact. Normal speech. Normal gait. PSYCHIATRIC: Cooperative. Good eye contact. Appropriate mood and affect. SKIN: Warm, dry, normal turgor, no rashes or lesions noted, normal capillary refill. ASSESSMENT/PLAN:
--- NOTE | 2017-01-22 17:06 | HP ---
Addendum entered and electronically signed by Shaista Orourke RES 01/22/17 19:38 : Had a long discussion with patients son. Patient's son reports he initially brought her to the ED for coughing and sputum production. When she was in the ED she was given Dilantin 750mg loading dose and then I resumed home medication of 100mg BID (confirmed by calling pharmacy) and reports patient's mental status worsened from the Dilantin. Patient's son reports she receives once a day rather than twice a day due to the side effects of lethargy. He was concerned on patients diet due and malnutrition and is very uneasy giving the patient Dilantin twice a day. However, I explained to the patient that her Phenytoin level was below <2.5 and might be having seizures. I placed a hold on tonights dosage and will resume tomorrow after speech evaluation and Neuro evaluation. Original Note: CHIEF COMPLAINT: Altered Mental Status PCP: Dr. Mika Dickerson HISTORY OF PRESENT ILLNESS: ALL INFORMATION OBTAINED FROM RECORDS AND NOTES DUE TO PATIENTS MEDICAL CONDITION Patient is an 89 year old male with a PMHx of Seizure disorder, Quadriplegia, Dementia, Anoxic brain injury, who presents today for altered mental status and increasing lethargy. As per son, patient is having difficulty opening eyes with a decrease in appetite that started yesterday and worsened throughout the night. Patient's son does report compliance with seizure medication. Patients son also reports an increase in cough with productive sputum in the last week. Otherwise, denies any chest pain, fevers, chills, nausea, vomiting, diarrhea, shortness of breath. Upon evaluation of patient was somnolent and not easily aroused. ER course was notable for: (1) Phenytoin levels subtherapeutic (2) Phenytoin sodium injection 750mg once (3) 1 Bolus of NS and NS @ 75 mls/hr (4) UA/ CT/ CXR negative Recent Travel: Unable to obtain due to patients medical condition PAST MEDICAL HISTORY: Unable to obtain due to patients medical condition PAST SURGICAL HISTORY: Unable to obtain due to patients medical condition Social History: Unable to obtain due to patients medical condition Family History: Unable to obtain due to patients medical condition Allergies Penicillins Allergy (Verified 01/21/17 22:38) carbidopa Adverse Reaction (Verified 01/21/17 22:38) levetiracetam [From [facility]] Adverse Reaction (Verified 01/21/17 22:38) mirtazapine Adverse Reaction (Verified 01/21/17 22:38) HOME MEDICATIONS: Home Medications Medication Instructions Recorded Memantine HCl [Namenda Liquid] 5 mg PO DAILY #30 ml 09/14/16 Phenytoin Na Extended [Dilantin -] 100 mg PO DAILY #30 capsule 10/29/16 REVIEW OF SYSTEMS Unable to obtain due to patients medical condition PHYSICAL EXAMINATION Vital Signs - 24 hr 01/22/17 17:02 Pulse Rate [ 60 Apical] Respiratory 19 Rate Blood Pressure 153/63 [Left] O2 Sat by Pulse 99 Oximetry (%) GENERAL: Sleeping, somnolent, not easily arousable. HEAD: Normal with no signs of trauma.. LUNGS: Breath sounds equal, clear to auscultation bilaterally anteriorly. No wheezes, and no crackles anteriorly. No accessory muscle use. HEART: Regular rate and rhythm, normal S1 and S2 without murmur, rub or gallop. ABDOMEN: Soft, nontender, not distended, normoactive bowel sounds, no guarding, no rebound, no masses. No hepatomegaly or splenomegaly. EXTREMITIES: No peripheral edema. NEUROLOGICAL: Quadriplegic with cognitive impairment at baseline. Non-verbal, non- ambulatory SKIN: Warm, dry, normal turgor, no rashes or lesions noted, normal capillary refill. Laboratory Results - last 24 hr 01/22/17 01/22/17 01/22/17 00:09 00:09 00:09 WBC 5.0 RBC 4.10 D Hgb 12.7 D Hct 38.6 D MCV 94.1 MCHC 32.9 RDW 12.9 D Plt Count 245 MPV 8.3 Neutrophils % 69.3 Lymphocytes % 17.8 Monocytes % 10.0 Eosinophils % 2.1 Basophils % 0.8 INR 1.06 Sodium 132 L Potassium 4.2 Chloride 95 L D Carbon Dioxide 26 Anion Gap 11 BUN 5 L D Creatinine 0.3 L Creat Clearance w eGFR > 60 Random Glucose 92 Calcium 8.4 L Total Bilirubin 0.3 D AST 24 D ALT 24 D Alkaline Phosphatase 69 D Creatine Kinase 60 Troponin I < 0.02 Total Protein 6.6 Albumin 3.3 L Urine Color Urine Appearance Urine pH Ur Specific [place] Urine Protein Urine Glucose (UA) Urine Ketones Urine Blood Urine Nitrite Urine Bilirubin Urine Urobilinogen Ur Leukocyte Esterase Phenytoin Blood Type Antibody Screen 01/22/17 01/22/17 01/22/17 00:09 00:09 02:18 WBC RBC Hgb Hct MCV MCHC RDW Plt Count MPV Neutrophils % Lymphocytes % Monocytes % Eosinophils % Basophils % INR Sodium Potassium Chloride Carbon Dioxide Anion Gap BUN Creatinine Creat Clearance w eGFR Random Glucose Calcium Total Bilirubin AST ALT Alkaline Phosphatase Creatine Kinase Troponin I Total Protein Albumin Urine Color Ltyellow Urine Appearance Clear Urine pH 7.0 Ur Specific [place] 1.015 Urine Protein Negative Urine Glucose (UA) Negative Urine Ketones Negative Urine Blood Negative Urine Nitrite Negative Urine Bilirubin Negative Urine Urobilinogen Negative Ur Leukocyte Esterase Negative Phenytoin < 2.5 L D Blood Type A POSITIVE Antibody Screen Negative IMAGES: Head CT: No evidence of acute intracranial hemorrhage, edema, midline shift, mass effect, or skull fracture. No Evidence of acute Territorial infarction. Chest X-ray: No acute pathology ASSESSMENT/PLAN: Patient is an 89 year old female with a PMHx of Seizure disorder, quadriplegia, anoxic brain injury, and dementia who presented for altered mental status and increasing lethargy for the last 24 hours. Patient admitted for further monitoring and management. Altered Mental Status -Patient has baseline dementia -U/A negative -Head CT negative -Chest X-ray negative -Afebrile, no leukocytosis and hemodynamically stable -Neuro checks Q4H -EEG ordered to rule out seizures -Neuro consult ordered -Fall risk precautions ordered -Speech and Swallow ordered -Hydration with IV NS @ 75mls/hr Seizure Disorder -Phenytoin level subtherapeutic @ <2.5 L -Confirmed medication with Pharmacy for which she takes 125mg per 5mls with 4mls BID -Phenytoin Sodium injection 100mg BID ordered -EEG ordered to rule out any active seizures -Neuro checks Q4H -Neuro consult placed Dementia -Continue with home medication Namenda 5mg Daily F/E/N -On NS @ 75mls/hr -Electrolytes wnl -NPO until swallow evaluation Prophylaxis -Heparin SQ BID for DVT Disposition -EEG ordered and neuro consult placed. Visit type - Emergency Visit Emergency Visit: Yes ED Registration Date: 01/22/17 Care time: The patient presented to the Emergency Department on the above date and was hospitalized for further evaluation of their emergent condition. - New Patient This patient is new to me today: Yes Date on this admission: 01/22/17 - Critical Care Critical Care patient: No
--- NOTE | 2017-01-22 18:07 | PN ---
Teaching Attending Note Name of Resident: Shaista Orourke ATTENDING PHYSICIAN STATEMENT I saw and evaluated the patient. I reviewed the resident's note and discussed the case with the resident. I agree with the resident's findings and plan as documented. SUBJECTIVE: This is an 89-year-old woman with a history of seizure disorder, quadriplegia, dementia, anoxic brain injury who was brought in to the ER for increasing lethargy. As per her son, she has had difficulty opening her eyes and decreased appetite since yesterday. Patient is somnolent and unable to provide a history. OBJECTIVE: Vital Signs Period Temp Pulse Resp BP Sys/Angela Pulse Ox Last 24 Hr 97.8 F-97.9 F 60-67 16-20 146-186/49-92 98-100 HEART: S1S2, RRR LUNGS: Clear ABDOMEN: Soft, non-distended, normal BS EXTREMTIES: No edema ASSESSMENT AND PLAN: This is an 89-year-old woman with a history of seizure disorder, quadriplegia, anoxic brain injury, and dementia who presented to the ER with increasing lethargy and altered mental status. 1. Dementia with possible acute metabolic encephalopathy, possible seizure - U/A, head CT, CXR negative - Afebrile, no leukocytosis - IV fluid - Continue Dilantin - adjust dose as level is subtherapeutic - Continue Namenda - EEG - Neurology consult - IV fluid 2. Seizure disorder 3. History of anoxic brain injury 4. Quadriplegia
--- NOTE | 2017-01-22 20:34 | CON.NEURO ---
Consult - History of Present Illness Chief Complaint: AMS History of Present Illness: Patient is an 89 year old male with a PMHx of Seizure disorder, Quadriplegia, Dementia, Anoxic brain injury, who presents today for altered mental status and increasing lethargy. As per son, patient is having difficulty opening eyes with a decrease in appetite that started yesterday and worsened throughout the night. Patient's son does report compliance with seizure medication. Patients son also reports an increase in cough with productive sputum in the last week. I saw and examined the pt at the bedside. Pt has dementia at baseline and lethargic , no family member at the bedside so hx obtained from the chart and house staff. - History Source History Provided By: Medical Record Limitations to Obtaining History: Dementia - Past Medical History [employer]: Yes: Dementia, Other (anoxic brain injury previous diagnosed with depression, PD and seziures however is is unclear if multiple diagnoses were confimred. ) - Alcohol/Substance Use Hx Alcohol Use: No - Smoking History Smoking history: Never smoked Have you smoked in the past 12 months: No Home Medications - Allergies Allergies/Adverse Reactions: Allergies Allergy/AdvReac Type Severity Reaction Status Date / Time Penicillins Allergy Verified 01/21/17 22:38 carbidopa AdvReac Verified 01/21/17 22:38 levetiracetam [From Keppra] AdvReac Verified 01/21/17 22:38 mirtazapine AdvReac Verified 01/21/17 22:38 - Home Medications Home Medications: Ambulatory Orders Memantine HCl [Namenda Liquid] 5 mg PO DAILY #30 ml 09/14/16 Phenytoin Na Extended [Dilantin -] 100 mg PO DAILY #30 capsule 10/29/16 Review of Systems Unable to obtain ROS, reason: AMS , not able to obtain Physical Exam-Neuro Vital Signs: Vital Signs Temperature 97.9 F 01/22/17 18:03 Pulse Rate 62 01/22/17 18:03 Respiratory Rate 20 01/22/17 18:03 Blood Pressure 186/86 01/22/17 18:03 O2 Sat by Pulse Oximetry (%) 100 01/22/17 18:06 Constitutional: Yes: Calm, Cachectic Neck: Yes: Supple Cardiovascular: Yes: Regular Rate and Rhythm Respiratory: Yes: CTA Bilaterally Musculoskeletal: Yes: WNL Edema: No Labs: INR, PTT INR 1.06 (0.82-1.09) 01/22/17 00:09 - Neuro Exam Level Of Consciousness: Yes: Stuporous (moves exts w painful stimuli ) Speech: Other (NON VERBAL) Cranial Nerves II-XII Intact: Yes (No face asymmetria , no gaze preference) DTR's: 1+ Left Bicep, 1+ Right Bicep, 1+ Left Tricep, 1+ Right Tricep, 1+ Left Brachioradialis, 1+ Right Brachioradialis, 1+ Left Achilles, 1+ Right Achilles Babinski: Absent Gait: Other (quadriplegic at baseline ;) NIH Stroke Scale - Total Score NIH Stroke Scale Score: 0 Imaging - Results Cat Scan: Report Reviewed, Image Reviewed Problem List - Problems (1) Altered mental status Code(s): R41.82 - ALTERED MENTAL STATUS, UNSPECIFIED (2) Seizure disorder, focal motor Code(s): G40.109 - LOCAL-REL SYMPTC EPI W SIMP PRT SEIZ,NOT NTRCT, W/O STAT EPI (3) Dementia Code(s): F03.90 - UNSPECIFIED DEMENTIA WITHOUT BEHAVIORAL DISTURBANCE Qualifiers: Dementia type: unspecified type Dementia behavioral disturbance: without behavioral disturbance Qualified Code(s): F03.90 - Unspecified dementia without behavioral disturbance (4) Convulsion Code(s): R56.9 - UNSPECIFIED CONVULSIONS (5) Anoxic brain damage Code(s): G93.1 - ANOXIC BRAIN DAMAGE, NOT ELSEWHERE CLASSIFIED (6) Lethargy Code(s): R53.83 - OTHER FATIGUE Assessment/Plan AMS due to metabolic vs infectious encephalopathy vs non convulsive status epilepticus in the setting of dementia and multiple comorbid condition . CTH -ve for acute events. Dilantin level subtheraputic , was loaded w dilantin Dilantin 100 mg bid check the level am EEG routine check B12, RPR, TSH, CK , Ammonium Seizure / fall precaution Evaluate for underlying cause such as infections , toxic , etc Health maintenance per primary team. Thank you for allowing us to participate in the care of this patient. [facility], [facility] [phone]
[2017-01-22] MEDS ORDERED: PHENYTOIN SODIUM 100 MG/2 ML VIAL IVPB SCH (22:00)
[2017-01-22] MEDS: HEPARIN NA (PORCINE) 5,000 UNITS/ML 1ML VIAL SQ SCH (22:39)
[2017-01-22] MEDS: INSULIN SLIDING SCALE (NOVOLOG) 1 VIAL SQ SCH (22:40)
[2017-01-23] MEDS: INSULIN SLIDING SCALE (NOVOLOG) 1 VIAL SQ SCH ×2 (06:49→11:13)
[2017-01-23 08:23] LABS: ANION GAP 11 (8-16); CALCIUM 7.7 mg/dL (8.5-10.1); CO2 23 mmol/L (21-32); CREATININE 0.3 mg/dL (0.55-1.02); GLUCOSE,RANDOM 78 mg/dL (74-106); MAGNESIUM 1.7 mg/dL (1.8-2.4); PHOSPHOROUS 2.9 mg/dL (2.5-4.9)
--- NOTE | 2017-01-23 08:31 | PN ---
Addendum entered and electronically signed by Shaista Orourke RES 01/23/17 16:26 : Contacted Neurologist, Dr. Ramírez who recommended stopping Dilantin and to Begin DEPAKOTE 500mg BID. Will order as directed Addendum entered and electronically signed by Shaista Orourke RES 01/23/17 11:39 : Spoke to speech pathologist, may order dysphagia puree diet with thin liquids. Contacted cardiology department for EEG. Will not be done today due to tech absent Will contact Neuro on further management. Original Note: Physical Exam: SUBJECTIVE: Patient seen and examined by me at bedside. No overnight events noted. As per nurse, patient is not as lethargic and somnolent as yesterday. Does move head and nods on painful stimuli. Neuro evaluated patient last night and recommended lab workup. Labs ordered this morning. EEG is to be done today. Otherwise, no fever, chills, vomiting, chest pain, shortness of breath. OBJECTIVE: Vital Signs Period Temp Pulse Resp BP Sys/Angela Pulse Ox Last 24 Hr 97.4 F-98.2 F 60-87 16-20 117-186/49-86 99-100 GENERAL: Somnolent, easily arousable today. LUNGS: Breath sounds equal, clear to auscultation bilaterally anteriorly. No wheezes, and no crackles anteriorly. No accessory muscle use. HEART: Regular rate and rhythm, normal S1 and S2 without murmur, rub or gallop. ABDOMEN: Soft, nontender, not distended, normoactive bowel sounds, no guarding, no rebound, no masses. No hepatomegaly or splenomegaly. EXTREMITIES: No peripheral edema. NEUROLOGICAL: Quadriplegic with cognitive impairment at baseline. Non-verbal, non- ambulatory Laboratory Results - last 24 hr 01/22/17 01/23/17 21:36 06:10 POC Glucometer 113 81 Active Medications Generic Name Dose Route Start Last Admin Trade Name Freq PRN Reason Stop Dose Admin Heparin Sodium (Porcine) 5,000 unit 01/22/17 22:00 01/22/17 22:39 Heparin - SQ 5,000 unit BID LEA Administration Sodium Chloride 1,000 mls @ 75 mls/hr 01/21/17 23:15 01/22/17 22:42 Normal Saline - IV 75 mls/hr ASDIR LEA Administration Insulin Aspart 1 vial 01/22/17 22:00 01/23/17 06:49 Novolog Vial Sliding Scale - SQ Not Given ACHS [facility] Protocol Memantine 5 mg 01/23/17 10:00 Namenda - PO DAILY LEA Phenytoin Sodium 100 mg 01/22/17 22:00 Dilantin Injection - IVPB BID [facility] ASSESSMENT/PLAN: Patient is an 89 year old female with a PMHx of Seizure disorder, quadriplegia, anoxic brain injury, and dementia who presented for altered mental status and increasing lethargy for the last 24 hours. Patient admitted for further monitoring and management. Altered Mental Status -Patient has baseline dementia -U/A negative -Head CT negative -Chest X-ray negative -Afebrile, no leukocytosis and hemodynamically stable -Neuro checks Q4H -EEG ordered to rule out seizures -Neuro consult ordered and recommended B12, RPR, TSH, Ammonia, and CK levels and all wnl -Fall risk precautions ordered -Speech and Swallow ordered -Hydration with IV NS @ 75mls/hr Seizure Disorder -Phenytoin level subtherapeutic @ <2.5 L -Repeat level this morning pending -Phenytoin Sodium injection 100mg once ordered. Last night's dose held to evaluate patients mental status. Will resume morning dosage -EEG ordered to rule out any active seizures -Neuro checks Q4H -Neuro consult placed Dementia -Home medication Namenda 5mg Daily on hold until speech and swallow eval F/E/N -On NS @ 75mls/hr -Electrolytes wnl -NPO until swallow evaluation Prophylaxis -Heparin SQ BID for DVT Disposition -EEG ordered and neuro consult placed Visit type - Emergency Visit Emergency Visit: Yes ED Registration Date: 01/22/17 Care time: The patient presented to the Emergency Department on the above date and was hospitalized for further evaluation of their emergent condition. - New Patient This patient is new to me today: No - Critical Care Critical Care patient: No
[2017-01-23 09:27] LABS: TROPONIN I < 0.02 ng/ml (0.00-0.05)
--- NOTE | 2017-01-23 10:48 | CONSULT ---
Admitting History and Physical - Primary Care Physician PCP: Galindo Ayala - Admission History of Present Illness: Per EMR: "ASSESSMENT/PLAN: Patient is an 89 year old female with a PMHx of Seizure disorder, quadriplegia, anoxic brain injury, and dementia who presented for altered mental status and increasing lethargy for the last 24 hours. Patient admitted for further monitoring and management. Altered Mental Status -Patient has baseline dementia -U/A negative -Head CT negative -Chest X-ray negative -Afebrile, no leukocytosis and hemodynamically stable -Neuro checks Q4H -EEG ordered to rule out seizures -Neuro consult ordered and recommended B12, RPR, TSH, Ammonia, and CK levels -Fall risk precautions ordered -Speech and Swallow ordered -Hydration with IV NS @ 75mls/hr Seizure Disorder -Phenytoin level subtherapeutic @ <2.5 L" Pt known to me from previous admission.Pt has been on puree and thin liquids, sometimes soft solids at home, with reported good tolerance, per pt's son. He reports sometimes she swallows quickly and other times quite slowly.He does lay her down after meals. She recently had phlegm and a cough, which prompted her admission. History Source: Family Member Limitations to Obtaining History: Clinical Condition, Dementia, Poor Historian - Past Medical History END POLISHER: Yes: Dementia, Other (anoxic brain injury previous diagnosed with depression, PD and seziures however is is unclear if multiple diagnoses were confimred. ) - Smoking History Smoking history: Never smoked Have you smoked in the past 12 months: No - Alcohol/Substance Use Hx Alcohol Use: No History - Admission Reason For Visit: AMS - Diagnostics X-ray: Report Reviewed CT Scan: Report Reviewed - General Mental Status: Confused, Flat Affect, Lethargic (arousable,low volume unintelligible speech elicited) Attention: Distractible, Moderate Impairment Ability to Follow Directions: Poor Head/Neck Control: Needs Assist - Hearing Hearing: Normal Hearing Aide: No Speech Evaluation - Communication Primary Language: LUX[place] Communication: Yes: Non-Communicable (occasionally verbal, unintelligible.) - Speech Production Apraxia: No Able to Make Needs Known: Yes: Severely Impaired Intelligibility: Yes: Severely Impaired - Speech Characteristics Voice Loudness: Severely Soft/Quiet Voice Pitch: Yes: Normal Voice Phonatory-based Quality: Yes: Dysphonia Speech Pattern: Impaired Speech Clarity: < 25% Nasal Resonance: Normal Articulation: Yes: Imprecise - Language/Auditory Comprehension Observation: Able to respond to yes/no queries: No, Comprehends Conversational Speech: No - Language/Verbal Expression Able to Respond to Simple Queries: Yes: Severely Impaired Able to Communicate Wants and Needs: Yes: Severely Impaired Functional Communication Status: Yes: Severely Impaired - Memory/Perception assisted Memory: Yes: Severely Impaired Short Term Memory: Yes: Severely Impaired - Swallow Evaluation/Bedside Assessment Current Nutritional Intake: NPO Oral Secretions: Yes: WFL Dentition: Yes: Missing Teeth Facial Symmetry at Rest: Symmetrical Bite Reflex: Present Laryngeal Movement: Able to Palpate Rate of Intake: WFL, Slow/Holding (inconsistently) Bolus Size: WFL Labial Seal: WFL Oral Prep Time: Increased A-P Transit: Impaired Timing of Swallow: Delayed Coughing/Throat Clear: No Change in Voice: No Recommendations - Speech Evaluation, Impression/Plan Impression: Swallow remains brisk, however, delayed in onset at times with oral holding secondary to apraxia and dementia. Risk of aspirarion with delayed onset as well as if reclined after meals, as pt's son reports at home. - Dysphagia Impressions/Plan Swallowing Skills: Impaired Dysphagia Impressions: Mild Impairment *Silent aspiration: cannot be R/O at bedside Dysphagia Treatment Plan: Chin Tuck/Down, Safe Rate, 1/2 tsp. at a time, Elevate HOB during feed Recommendations: Other (Educated son extensively re: Upright x 1 hour after meals. Avoid PO intake within 2-3 hours of bedtime. (Pt would benefit from hospital bed at home, if she does not have one.) Blenderize all food at home, mixing with additional liquid in wine blender, for ease and safety of PO intake.) - Recommendations Diet Consistency: Dysphagia Pureed Medication Administration: Crushed with applesauce Liquids: Thin Liquids (single sips, wait for swallow reflex)
[2017-01-23 10:56] LABS: THYROID STIMULATING HORMONE 1.39 uIU/ml (0.358-3.74)
[2017-01-23] MEDS ORDERED: PHENYTOIN SODIUM 100 MG/2 ML VIAL IVPB SCH (11:00)
[2017-01-23] MEDS: HEPARIN NA (PORCINE) 5,000 UNITS/ML 1ML VIAL SQ SCH ×2 (11:12→22:16)
[2017-01-23] MEDS: SODIUM CHLORIDE 1,000 ML IV SCH ×2 (12:29→23:30)
--- NOTE | 2017-01-23 13:25 | PN ---
Teaching Attending Note Name of Resident: Shaista Orourke ATTENDING PHYSICIAN STATEMENT I saw and evaluated the patient. I reviewed the resident's note and discussed the case with the resident. I agree with the resident's findings and plan as documented. SUBJECTIVE: Patient is more alert today. OBJECTIVE: Vital Signs Period Temp Pulse Resp BP Sys/Angela Pulse Ox Last 24 Hr 97.4 F-98.8 F 60-87 16-20 116-186/49-86 99-100 HEART: S1S2, RRR LUNGS: Clear ABDOMEN: Soft, non-distended, normal BS EXTREMTIES: No edema ASSESSMENT AND PLAN: This is an 89-year-old woman with a history of seizure disorder, quadriplegia, anoxic brain injury, and dementia who presented to the ER with increasing lethargy and altered mental status. 1. Dementia with possible acute metabolic encephalopathy, possible seizure - U/A, head CT, CXR negative - Afebrile, no leukocytosis - Continue IV fluid - Neurology consult appreciated - Dilantin being changed to Depakote - Continue Namenda - EEG 2. Seizure disorder 3. History of anoxic brain injury 4. Quadriplegia
[2017-01-23] MEDS ORDERED: PT OWN MED DRAWER 7, Y5N ONE ×2 (18:21→22:14)
--- NOTE | 2017-01-23 19:25 | PN ---
Progress Note (short form) - Note Progress Note: F/U : Neurology: I saw and examined the pt at the bedside; spoke to her son at the bedside. Pt has been dx as seizure since last Dec , has had 2 episode of shaking w LOC, dilantin made her lethargic; her baseline is bed to chair ; sometimes speakes few words. Level Of Consciousness: Wake up w call , open her eyes. Speech: Other (NON VERBAL) Cranial Nerves II-XII Intact: Yes (No face asymmetria , no gaze preference) DTR's: 1+ Left Bicep, 1+ Right Bicep, 1+ Left Tricep, 1+ Right Tricep, 1+ Left Brachioradialis, 1+ Right Brachioradialis, 1+ Left Achilles, 1+ Right Achilles Babinski: Absent Gait: Other (quadriplegic at baseline ;) A/P: AMS possible due to metabolic vs infectious encephalograph vs non clinical seizure . D/C dilantin because of non effective dose and lethargy Start depakote 250 mg bid Pt has had very bad mood changes w milo in the past. Seizure precautions Health maintenance per primary team. Thank you. Humberto Ramírez M.D. [phone] Problem List - Problems (1) Altered mental status Code(s): R41.82 - ALTERED MENTAL STATUS, UNSPECIFIED (2) Seizure disorder, focal motor Code(s): G40.109 - LOCAL-REL SYMPTC EPI W SIMP PRT SEIZ,NOT NTRCT, W/O STAT EPI (3) Dementia Code(s): F03.90 - UNSPECIFIED DEMENTIA WITHOUT BEHAVIORAL DISTURBANCE Qualifiers: Dementia type: unspecified type Dementia behavioral disturbance: without behavioral disturbance Qualified Code(s): F03.90 - Unspecified dementia without behavioral disturbance (4) Convulsion Code(s): R56.9 - UNSPECIFIED CONVULSIONS (5) Anoxic brain damage Code(s): G93.1 - ANOXIC BRAIN DAMAGE, NOT ELSEWHERE CLASSIFIED (6) Lethargy Code(s): R53.83 - OTHER FATIGUE
[2017-01-23] MEDS ORDERED: DIVALPROEX SODIUM 125 MG SPRINKLE CAPS (FP) PO SCH (22:00)
[2017-01-23] MEDS: DIVALPROEX SODIUM 125 MG SPRINKLE CAPS (FP) PO SCH (22:16)
[2017-01-24] MEDS: SODIUM CHLORIDE 1,000 ML IV SCH (02:00)
[2017-01-24 08:40] LABS: CALCIUM 7.6 mg/dL (8.5-10.1); COCKROFT - GAULT 100.13; CREATININE 0.3 mg/dL (0.55-1.02)
[2017-01-24] MEDS ORDERED: PT OWN MED DRAWER 7, Y5N ONE ×2 (11:05→21:26)
[2017-01-24] MEDS: DIVALPROEX SODIUM 125 MG SPRINKLE CAPS (FP) PO SCH ×2 (11:17→21:32)
[2017-01-24] MEDS: HEPARIN NA (PORCINE) 5,000 UNITS/ML 1ML VIAL SQ SCH ×2 (11:17→21:32)
[2017-01-24] MEDS: MEMANTINE HCL 5 MG TABLET (UD) PO SCH (11:24)
--- NOTE | 2017-01-24 12:16 | PN ---
Progress Note, POLICE CHIEF DEPUTY - Note Progress Note: Selected Entries 01/23/17 01/23/17 01/24/17 14:15 18:00 10:30 Breakfast 50% Lunch 25% Supper 100% On Puree and thin liquid. Does best when fed by her son. Tolerating diet well. Intermittent oral holding.
--- NOTE | 2017-01-24 14:17 | PN ---
Physical Exam: SUBJECTIVE: Patient seen and examined by me at bedside. No overnight events noted. Patient's mental status improved from admission. She is more easily arousable when calling her name and she is able to tolerate her puree diet. EEG to be done today. Neurology changed medication to Depakote 250mg BID due to low dose of dilantin causing lethargy. Will repeat Valproic acid levels in the morning. OBJECTIVE: Vital Signs Period Temp Pulse Resp BP Sys/Angela Pulse Ox Last 24 Hr 98.5 F-98.9 F 61-75 18-20 112-139/46-70 96 GENERAL: Somnolent, easily arousable today. LUNGS: Breath sounds equal, clear to auscultation bilaterally anteriorly. No wheezes, and no crackles anteriorly. No accessory muscle use. HEART: Regular rate and rhythm, normal S1 and S2 without murmur, rub or gallop. ABDOMEN: Soft, nontender, not distended, normoactive bowel sounds, no guarding, no rebound, no masses. No hepatomegaly or splenomegaly. EXTREMITIES: No peripheral edema. NEUROLOGICAL: Quadriplegic with cognitive impairment at baseline. Non-verbal, non- ambulatory Laboratory Results - last 24 hr 01/24/17 07:45 Sodium 137 Potassium 3.5 Chloride 103 Carbon Dioxide 25 Anion Gap 9 BUN 5 L Creatinine 0.3 L Random Glucose 88 Calcium 7.6 L Active Medications Generic Name Dose Route Start Last Admin Trade Name Freq PRN Reason Stop Dose Admin Divalproex Sodium 250 mg 01/23/17 22:00 01/24/17 11:17 Depakote Sprinkle Caps - PO 250 mg BID LEA Administration Heparin Sodium (Porcine) 5,000 unit 01/22/17 22:00 01/24/17 11:17 Heparin - SQ 5,000 unit BID LEA Administration Sodium Chloride 1,000 mls @ 75 mls/hr 01/21/17 23:15 01/24/17 02:00 Normal Saline - IV 75 mls/hr ASDIR LEA Administration Memantine 5 mg 01/23/17 10:00 01/24/17 11:24 Namenda - PO 5 mg DAILY LEA Administration ASSESSMENT/PLAN: Patient is an 89 year old female with a PMHx of Seizure disorder, quadriplegia, anoxic brain injury, and dementia who presented for altered mental status and increasing lethargy for 24 hours. Patient admitted for further monitoring and management. Altered Mental Status Secondary to Non-Convulsive Status Epilepticus vs. Medication Side Effects -Patient has baseline dementia -U/A negative -Head CT negative -Chest X-ray negative -Afebrile, no leukocytosis and hemodynamically stable -Neuro checks Q4H -EEG Done today. Results pending -B12, RPR, TSH, Ammonia, and CK levels and all wnl -Fall risk precautions ordered -Speech and Swallow ordered -Hydration with IV NS @ 75mls/hr Seizure Disorder -Patient switched to Depakote 250mg BID. -Will check Valproic acid levels in the morning -EEG done today with results pending -Neuro checks Q4H -Neuro consult appreciated Dementia -Continue Home medication Namenda 5mg Daily F/E/N -On NS @ 75mls/hr -Electrolytes wnl -Dysphagia Puree with thin liquids Prophylaxis -Heparin SQ BID for DVT Disposition -EEG results pending with D/C planning for tomorrow if EEG negative Visit type - Emergency Visit Emergency Visit: Yes ED Registration Date: 01/22/17 Care time: The patient presented to the Emergency Department on the above date and was hospitalized for further evaluation of their emergent condition. - New Patient This patient is new to me today: No - Critical Care Critical Care patient: No
--- NOTE | 2017-01-24 17:11 | PN ---
Teaching Attending Note Name of Resident: Shaista Orourke ATTENDING PHYSICIAN STATEMENT I saw and evaluated the patient. I reviewed the resident's note and discussed the case with the resident. I agree with the resident's findings and plan as documented. SUBJECTIVE: Patient comfortable. Sleeping but arousable. OBJECTIVE: Vital Signs Period Temp Pulse Resp BP Sys/Angela Pulse Ox Last 24 Hr 97.8 F-98.6 F 61-75 18-20 112-139/47-70 96 HEART: S1 S2, RRR LUNGS: Clear ABDOMEN: Soft, non-tender, non-distended, normal BS EXTREMITIES: No edema ASSESSMENT AND PLAN: This is an 89-year-old woman with a history of seizure disorder, quadriplegia, anoxic brain injury, and dementia who presented to the ER with increasing lethargy and altered mental status. 1. Possible seizure - Continue Depakote - EEG ordered 2. No evidence of acute metabolic encephalopathy 3. Seizure disorder 4. Dementia - Continue Namenda 5. History of anoxic brain injury 6. Quadriplegia
[2017-01-25] MEDS: DIVALPROEX SODIUM 125 MG SPRINKLE CAPS (FP) PO SCH (10:00)
[2017-01-25] MEDS: MEMANTINE HCL 5 MG TABLET (UD) PO SCH (10:00)
[2017-01-25] MEDS: HEPARIN NA (PORCINE) 5,000 UNITS/ML 1ML VIAL SQ SCH (10:00)
--- NOTE | 2017-01-25 10:50 | PN ---
Physical Exam: SUBJECTIVE: Patient seen and examined by me at bedside. No overnight events noted. Patient is easily arousable and has been tolerating her puree diet. Awaiting EEG results. Patient continues to have treatment for seizure disorder and can be followed as outpatient for EEG results. OBJECTIVE: Vital Signs Period Temp Pulse Resp BP Sys/Angela Pulse Ox Last 24 Hr 97.8 F-98.7 F 62-69 16-20 116-141/58-62 97 GENERAL: Somnolent, easily arousable today. LUNGS: Breath sounds equal, clear to auscultation bilaterally anteriorly. No wheezes, and no crackles anteriorly. No accessory muscle use. HEART: Regular rate and rhythm, normal S1 and S2 without murmur, rub or gallop. ABDOMEN: Soft, nontender, not distended, no guarding, no rebound, no masses. EXTREMITIES: No peripheral edema. NEUROLOGICAL: Quadriplegic with cognitive impairment at baseline. Non-verbal, non- ambulatory Laboratory Results - last 24 hr 01/25/17 06:20 Valproic Acid 39.322 L Active Medications Generic Name Dose Route Start Last Admin Trade Name Freq PRN Reason Stop Dose Admin Divalproex Sodium 250 mg 01/23/17 22:00 01/25/17 10:00 Depakote Sprinkle Caps - PO 250 mg BID LEA Administration Heparin Sodium (Porcine) 5,000 unit 01/22/17 22:00 01/25/17 10:00 Heparin - SQ 5,000 unit BID LEA Administration Memantine 5 mg 01/23/17 10:00 01/25/17 10:00 Namenda - PO 5 mg DAILY LEA Administration ASSESSMENT/PLAN: Patient is an 89 year old female with a PMHx of Seizure disorder, quadriplegia, anoxic brain injury, and dementia who presented for altered mental status and increasing lethargy for 24 hours. Patient admitted for further monitoring and management. Altered Mental Status Secondary to Non-Convulsive Status Epilepticus vs. Medication Side Effects -Patient has baseline dementia -U/A negative -Head CT negative -Chest X-ray negative -Afebrile, no leukocytosis and hemodynamically stable -Neuro checks Q4H -EEG results pending -B12, RPR, TSH, Ammonia, and CK levels and all wnl -Fall risk precautions ordered -Speech and Swallow ordered Seizure Disorder -Continue Depakote 250mg BID. -Will check Valproic acid levels in the morning -EEG done yesterday with results pending -Neuro checks Q4H -Neuro consult appreciated Dementia -Continue Home medication Namenda 5mg Daily F/E/N -On no fluids -Electrolytes wnl -Dysphagia Puree with thin liquids Prophylaxis -Heparin SQ BID for DVT Disposition -EEG results pending with D/C planning for today
[2017-01-25 14:00] VITALS: BP 133/61; PULSE 74; TEMP 97.9
--- NOTE | 2017-01-25 16:32 | DS ---
Physical Exam: SUBJECTIVE: Patient seen and examined by me at bedside. Patient afebrile with no overnight events noted. Patient at baseline today according to son and had her eyes open and neck straightened. OBJECTIVE: Vital Signs Period Temp Pulse Resp BP Sys/Angela Pulse Ox Last 24 Hr 97.8 F-98.7 F 62-74 16-20 116-141/57-62 97-97 PHYSICAL EXAM GENERAL: Somnolent, easily arousable today. LUNGS: Breath sounds equal, clear to auscultation bilaterally anteriorly. No wheezes, and no crackles anteriorly. No accessory muscle use. HEART: Regular rate and rhythm, normal S1 and S2 without murmur, rub or gallop. ABDOMEN: Soft, nontender, not distended, no guarding, no rebound, no masses. EXTREMITIES: No peripheral edema. NEUROLOGICAL: Quadriplegic with cognitive impairment at baseline. Non-verbal, non- ambulatory LABS Laboratory Results - last 24 hr 01/25/17 06:20 Valproic Acid 39.322 L HOSPITAL COURSE: Patient is an 89 year old male with a PMHx of Seizure disorder, Functional Quadriplegia, Dementia, Anoxic brain injury, who presents today for altered mental status and increasing lethargy. As per son, patient is having difficulty opening eyes with a decrease in appetite that started yesterday and worsened throughout the night associated with cough and productive sputum. Chest X-ray was negative for pneumonia and urine was negative for UTI. Patient was given a loading dose of Phenytoin when labwork returned with a low level of <2.5. After the Loading dose patient became more lethargic and was admitted for altered mental status. Patient's Dilantin was changed to 100mg once a day from 100mg BID. Neurology recommended to switch to Depakote because the dosage of Dilantin is non effective dose and made patient lethargic. EEG was ordered. Patient was monitored and observed on Depakote and her mental status started returning to baseline. EEG was negative for active seizures and patient started eating with improvement of mental status. Patient will now be discharged with a prescription of Depakote 250mg BID sprinkle capsules and is to discontinue Dilantin. Patient's son at bedside advised to follow up with neurologist and PCP in one week. 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 Your medication Phenytoin has been discontinued. 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 for Depakote 250mg BID from your pharmacy -Resume all other home medications -Followup with your regular physician and neurologist within a week -You make resume your regular diet at home -If your symptoms worsen and you are having difficulty breathing, return to the emergency department immediately Referrals: Humberto Nichols MD [Staff Physician] - Mika Dickerson MD, MD [Primary Care Provider] - Disposition: HOME - Home Medications Comprehensive Discharge Medication List: Ambulatory Orders Memantine HCl [Namenda Liquid] 5 mg PO DAILY #30 ml 09/14/16 Divalproex Sprinkle [Depakote Sprinkle -] 250 mg PO BID #60 cap.[email or web address] 01/25/17 This patient is new to me today: No Emergency Visit: Yes ED Registration Date: 01/22/17 Care time: The patient presented to the Emergency Department on the above date and was hospitalized for further evaluation of their emergent condition. Critical Care patient: No - Discharge Referral Referred to [facility] Med P.C.: No
--- NOTE | 2017-01-25 16:59 | PN ---
Teaching Attending Note Name of Resident: Shaista Orourke ATTENDING PHYSICIAN STATEMENT I saw and evaluated the patient. I reviewed the resident's note and discussed the case with the resident. I agree with the resident's findings and plan as documented. SUBJECTIVE: Patient is awake. OBJECTIVE: Vital Signs Period Temp Pulse Resp BP Sys/Angela Pulse Ox Last 24 Hr 97.8 F-98.7 F 62-74 16-20 116-141/57-62 97-97 HEART: S1 S2, RRR LUNGS: Clear ABDOMEN: Soft, non-tender, non-distended, normal BS EXTREMITIES: No edema ASSESSMENT AND PLAN: This is an 89-year-old woman with a history of seizure disorder, quadriplegia, anoxic brain injury, and dementia who presented to the ER with increasing lethargy and altered mental status. 1. Possible acute metabolic encephalopathy secondary to Dilantin, possible post- ictal state - Resolved - EEG shows no seizure activity 2. Seizure disorder - Continue Depakote - Dilantin discontinued secondary to lethargy 3. Dementia - Continue Namenda 4. History of anoxic brain injury 5. Quadriplegia 6. Disposition - Mental status back to baseline. Son does not want SNF. Will discharge to home.
== END 2017-01-25 17:25 | disposition home or self-care (01) | DRG 861 ==
LOC: JER 22:20 → JERBED 01-22 13:37 → OBSVTOIN 01-22 16:57 → J4S 01-22 17:45
PROVIDERS: ADMIT Internal Medicine; ATTEND Internal Medicine
PROC: 4A00X4Z Measurement of Central Nervous Electrical Activity, External Approach (ICD-10-PCS; principal; 2017-01-24)
DX: R41.82 Altered mental status, unspecified (principal); T42.0X5A Adverse effect of hydantoin derivatives, initial encounter; R53.83 Other fatigue; R53.2 Functional quadriplegia; F03.90 Unspecified dementia, unspecified severity, without behavioral disturbance, psychotic disturbance, mood disturbance, and anxiety; R64 Cachexia; Z68.21 Body mass index [BMI] 21.0-21.9, adult; G40.109 Localization-related (focal) (partial) symptomatic epilepsy and epileptic syndromes with simple partial seizures, not intractable, without status epilepticus; G93.1 Anoxic brain damage, not elsewhere classified
CPT/HCPCS: 36415; 70450-TC; 71010-TC; 80048; 80053; 80164; 80185; 81003; 82140; 82550; 82607; 83735; 84100; 84443; 84484; 85025; 85610; 86593; 86850; 86900; 86901; 93005; 93010; 95816; 99283-25; G0378; J1644

== ENCOUNTER 2017-01-28 15:20 | Inpatient (IN) | payer OTHER ==
[2017-01-28 16:38] LABS: URINE APPEARANCE CLOUDY; URINE BILIRUBIN NEGATIVE (NEGATIVE); URINE COLOR YELLOW; URINE GLUCOSE (UA) NEGATIVE (NEGATIVE); URINE KETONE NEGATIVE (NEGATIVE); URINE NITRITE POSITIVE (NEGATIVE); URINE PROTEIN NEGATIVE (NEGATIVE); URINE UROBILINOGEN NEGATIVE E.U./dl (0.2-1.0)
[2017-01-28 16:47] LABS: URINE BLOOD 1+ (NEGATIVE); URINE LEUK ESTERASE 3+ (NEGATIVE)
[2017-01-28 16:50] LABS: URINE BACTERIA RARE /hpf (NONE SEEN); URINE MUCUS MANY; URINE RBC 1 /hpf (0-3); URINE WBC 20 /hpf (3-5)
--- NOTE | 2017-01-28 17:41 | PDOC ---
History of Present Illness - History of Present Illness Initial Comments: 01/28/17 17:41 Patient is a petite 89 year old female with significant medical hx of seizure disorder, functional quadriplegia, dementia, anoxic brain injury, respiratory failure requiring intubation x 2, and several episodes of sepsis secondary to UTI, who is presenting to the ED with concern for malodorous urine for three days. Patient is unable to provide history and thus history was provided by son. Son reports that the patient was discharged for admission three days ago for lethargy and since her return home she's had malodorous urine. He decided to bring her to the ED for further evaluation. Denies any fevers. PMD: Mika Dickerson MD Surgical Hx: Cyst removal, cataract sx, <Shena Mora - Last Filed: 01/28/17 19:16> <Maggie Ackerman - Last Filed: 01/28/17 19:43> - General Chief Complaint: Urinary Problem Stated Complaint: SICKNESS Past History <Shena Mora - Last Filed: 01/28/17 19:16> - Past Medical History Anemia: No Asthma: No Cancer: No Cardiac Disorders: No COPD: No CHF: No Dementia: Yes Diabetes: No GI Disorders: No Disorders: Yes (UTI) HTN: No Hypercholesterolemia: No Liver Disease: No Psychiatric Problems: Yes (dementia) Seizures: Yes Thyroid Disease: No - Surgical History Cardiac Surgery: No Lung Surgery: No Neurologic Surgery: No - Psycho/Social/Smoking Cessation Hx Anxiety: No Suicidal Ideation: No Smoking History: Never smoked Have you smoked in the past 12 months: No Hx Alcohol Use: No Drug/Substance Use Hx: No Substance Use Type: None Hx Substance Use Treatment: No <Maggie Ackerman - Last Filed: 01/28/17 19:43> - Past Medical History Allergies/Adverse Reactions: Allergies Allergy/AdvReac Type Severity Reaction Status Date / Time Penicillins Allergy Verified 01/28/17 15:38 carbidopa AdvReac Verified 01/28/17 15:38 levetiracetam [From Keppra] AdvReac Verified 01/28/17 15:38 mirtazapine AdvReac Verified 01/28/17 15:38 Home Medications: Ambulatory Orders Memantine HCl [Namenda Liquid] 5 mg PO DAILY #30 ml 09/14/16 Divalproex Sprinkle [Depakote Sprinkle -] 2 cap PO BID #120 cap.sprink 01/25/17 Review of Systems - Review of Systems Comments:: 01/28/17 17:43 Patient unable to provide ROS. <MorganShena - Last Filed: 01/28/17 19:16> *Physical Exam - Vital Signs Last Vital Signs Temp Pulse Resp BP Pulse Ox 98.1 F 74 20 188/93 97 01/28/17 15:38 01/28/17 15:38 01/28/17 15:38 01/28/17 15:38 01/28/17 15:38 - Physical Exam Comments: 01/28/17 17:44 GENERAL: Petite. Awake. No acute distress. HEENT: Normocephalic, atraumatic. Chronic ptosis of the right eyelid. Left eyelid crusted. No conjunctival pallor. Sclera are non-icteric. Dry mucous membranes. Oropharynx is clear. NECK: Supple. Red scaly dermatitis to the left lateral neck. Cervical dystonia. No JVD. Carotid pulses 2+ and symmetric, without bruits. No thyromegaly. No lymphadenopathy. CARDIOVASCULAR: Regular rate and rhythm. Systolic murmur. No rubs or gallops. Distal pulses are 2+ and symmetric. PULMONARY: No evidence of respiratory distress. Lungs clear to auscultation bilaterally. No wheezing, rales or rhonchi. ABDOMINAL: Soft. Non-tender. Non-distended. No rebound or guarding. No organomegaly. Normoactive bowel sounds. MUSCULOSKELETAL: No bony deformities or tenderness. No CVA tenderness. EXTREMITIES: Cachectic extremities. No cyanosis. No clubbing. No edema. No calf tenderness. SKIN: Warm and dry. Normal capillary refill. No rashes. No jaundice. NEUROLOGICAL: Awake, non-verbal. Non-ambulatory chronically. Cannot follow commands. <Shena Mora - Last Filed: 01/28/17 19:16> - Vital Signs Last Vital Signs Temp Pulse Resp BP Pulse Ox 98.1 F 74 20 188/93 97 01/28/17 15:38 01/28/17 15:38 01/28/17 15:38 01/28/17 15:38 01/28/17 15:38 <Maggie Ackerman - Last Filed: 01/28/17 19:43> Heart Score/ECG Review #1 General ECG Interpretation: Sinus Rhythm, Normal Rate - ECG Intrepretation Rhythm: Regularly Irregular - [place]rar Comment: 01/28/17 17:50 rate 61 bpm, no st elevation or depression. <Maggie Ackerman - Last Filed: 01/28/17 19:43> ED Treatment Course - LABORATORY CBC & Chemistry Diagram: 01/28/17 18:10 01/28/17 18:10 - ADDITIONAL ORDERS Additional order review: Laboratory Results 01/28/17 16:05 Urine Color Yellow Urine Appearance Cloudy Urine pH 8.0 Urine Protein Negative Urine Glucose (UA) Negative Urine Ketones Negative Urine Blood 1+ H Urine Nitrite Positive Urine Bilirubin Negative Urine Urobilinogen Negative Ur Leukocyte Esterase 3+ H Urine RBC 1 Urine WBC 20 Urine Bacteria Rare Urine Mucus Many - RADIOLOGY Radiograph Interpretation: 01/28/17 19:16 Chest X-Ray Impression: No acute disease. Reported By: Ezequiel Schmidt MD <Shena Mora - Last Filed: 01/28/17 19:16> - LABORATORY CBC & Chemistry Diagram: 01/28/17 18:10 01/28/17 18:10 - ADDITIONAL ORDERS Additional order review: Laboratory Results 01/28/17 16:05 Urine Color Yellow Urine Appearance Cloudy Urine pH 8.0 Urine Protein Negative Urine Glucose (UA) Negative Urine Ketones Negative Urine Blood 1+ H Urine Nitrite Positive Urine Bilirubin Negative Urine Urobilinogen Negative Ur Leukocyte Esterase 3+ H Urine RBC 1 Urine WBC 20 Urine Bacteria Rare Urine Mucus Many - RADIOLOGY Radiology Studies Ordered: Category Date Time Status CHEST X-RAY PORTABLE* [RAD] Stat Radiology 01/28/17 17:08 Ordered <MekaMaggie - Last Filed: 01/28/17 19:43> Medical Decision Making - Medical Decision Making 01/28/17 17:38 89 yo F with h/o seizure disorder, anoxic brain injury, quadriplegic, bed bound , lives at home taken care of by son, h/o frequent UTI's, here wtih concerns for foul smelling urine. per son, urine smells irritated, noted pus near vagina when cleaning. no change to mental status. pt does tolerate liquids. was seen recently in ED for chest congestion. on exam pt responds to loud voice and pain, dry mucous memebranes. ext cachectic , abd soft NT.lungs clear. differential: sepsis, uti, pna, plan labs, cxr ua urine culture <Maggie Ackerman - Last Filed: 01/28/17 19:43> *DC/Admit/Observation/Transfer - Attestations Scribe Attestion: 01/28/17 17:45 Documentation prepared by Shena Mora, acting as medical liaison for Maggie Ackerman MD. <Shena Mora - Last Filed: 01/28/17 19:16> - Discharge Dispostion Admit: Yes <Maggie Ackerman - Last Filed: 01/28/17 19:43> Diagnosis at time of Disposition: Symptoms of urinary tract infection, Parkinson disease - Referrals Referrals: Mika Dickerson MD, MD [Primary Care Provider] -
[2017-01-28 18:20] LABS: BASOPHIL 0.6 % (0-2.0); EOSINOPHIL 1.7 % (0-4.5); MCH 31.4 pg (25.7-33.7); MCHC 33.1 g/dl (32.0-36.0); MEAN CELL VOLUME 94.8 fl (80-96); NEUTROPHILS 72.3 % (42.8-82.8); PLATELET COUNT 243 K/MM3 (134-434); RDW 13.8 % (11.6-15.6); WHITE BLOOD COUNT 5.1 K/mm3 (4.0-10.0)
[2017-01-28] MEDS ORDERED: CIPROFLOXACIN 400 MG/D5W 200 ML IVPB ONE (18:35)
[2017-01-28 18:52] LABS: INR 1.12 (0.82-1.09); PROTHROMBIN TIME (PATIENT) 12.4 SEC (9.98-11.88)
[2017-01-28 18:54] LABS: ACTIVATED PTT 32.6 SECONDS (26.9-34.4)
[2017-01-28 19:41] LABS: ALBUMIN 3.1 g/dl (3.4-5.0); ANION GAP 10 (8-16); BILIRUBIN,TOTAL 0.2 mg/dL (0.2-1.0); CALCIUM 8.1 mg/dL (8.5-10.1); CO2 29 mmol/L (21-32); COCKROFT - GAULT 109.2335; CREATININE 0.3 mg/dL (0.55-1.02); GLUCOSE,RANDOM 87 mg/dL (74-106); SGOT/AST 23 U/L (15-37); SGPT/ALT 21 U/L (12-78); TOT PROT 6.6 g/dl (6.4-8.2)
[2017-01-28 19:43] LABS: ALK PHOS 70 U/L (45-117); TROPONIN I < 0.02 ng/ml (0.00-0.05)
--- NOTE | 2017-01-28 20:04 | PN ---
<Willis Lockhart - Last Filed: 01/28/17 22:24> Teaching Attending Note Name of Resident: Rudi Correa <Toshia Jacob - Last Filed: 01/28/17 22:25> Teaching Attending Note ATTENDING PHYSICIAN STATEMENT I saw and evaluated the patient. I reviewed the resident's note and discussed the case with the resident. I agree with the resident's findings and plan as documented. SUBJECTIVE: 89 year old female that was brought in by family member for evaluation of malodorous urine x3 days. Pt is unable to provide detailed hx for underlying anoxic brain. History obtain from her animal caregiver(son). No fever noted. Mental status is at baseline. PMH: - Anoxic brain injury - functional quadriplegia - seizure disorder PSH: c section, cataract surgery PMD: Tuan Brennan SH: Smoking no Alcohol no Substance use no Lives at home with her son Allergies: Allergies Allergy/AdvReac Type Severity Reaction Status Date / Time Penicillins Allergy Verified 01/28/17 15:38 carbidopa AdvReac Verified 01/28/17 15:38 levetiracetam [From Keppra] AdvReac Verified 01/28/17 15:38 mirtazapine AdvReac Verified 01/28/17 15:38 Home Medications: Home Medications Medication Instructions Recorded Memantine HCl [Namenda Liquid] 5 mg PO DAILY #30 ml 09/14/16 Divalproex Sprinkle [Depakote 2 cap PO BID #120 cap.sprink 01/25/17 Sprinkle -] OBJECTIVE: VS: Last Vital Signs Temp Pulse Resp BP Pulse Ox 98.1 F 74 20 188/93 97 01/28/17 15:38 01/28/17 15:38 01/28/17 15:38 01/28/17 15:38 01/28/17 15:38 Physical Exam: GENERAL: Awake, responds to calling her name and tactile stimuli, in no acute distress HEENT: (+)Right external auditory canal severely impacted with cerumen. Atraumatic. PERRLA, EOMI. Moist mucosa. No JVD NECK: (+)torticollis, rotated to the left LUNGS: No distress, speaks full sentences, clear to auscultation bilaterally HEART: Regular rate and rhythm, normal S1 and S2, no murmurs, rubs or gallops, peripheral pulses normal and equal bilaterally. ABDOMEN: Soft, nontender, normoactive bowel sounds. No guarding, no rebound. No masses : (+)Urinary incontinence with adult diaper EXTREMITIES: Normal inspection, Normal range of motion, no edema. No clubbing or Cyanosis. NEUROLOGICAL: Unable to perform full exam as patient does not follow commands, functional quadriplegia. SKIN: (+)Interstitial space of the lower extremities fungus present, (+)Skin of the neck erythema and trush , (+)Maceration skin break down and fungal infection under left breast, (+)Stage 2 sacral decubiti. Labs: CBCD WBC 5.1 K/mm3 (4.0-10.0) 01/28/17 18:10 RBC 4.09 M/mm3 (3.60-5.2) 01/28/17 18:10 Hgb 12.8 GM/dL (10.7-15.3) 01/28/17 18:10 Hct 38.8 % (32.4-45.2) 01/28/17 18:10 MCV 94.8 fl (80-96) 01/28/17 18:10 MCHC 33.1 g/dl (32.0-36.0) 01/28/17 18:10 RDW 13.8 % (11.6-15.6) 01/28/17 18:10 Plt Count 243 K/MM3 (134-434) 01/28/17 18:10 MPV 8.0 fl (7.5-11.1) 01/28/17 18:10 CMP Sodium 136 mmol/L (136-145) 01/28/17 18:10 Potassium 4.8 mmol/L (3.5-5.1) D 01/28/17 18:10 Chloride 97 mmol/L (98-107) L 01/28/17 18:10 Carbon Dioxide 29 mmol/L (21-32) 01/28/17 18:10 Anion Gap 10 (8-16) 01/28/17 18:10 BUN 5 mg/dL (7-18) L 01/28/17 18:10 Creatinine 0.3 mg/dL (0.55-1.02) L 01/28/17 18:10 Creat Clearance w eGFR > 60 (>60) 01/28/17 18:10 Calcium 8.1 mg/dL (8.5-10.1) L 01/28/17 18:10 Total Bilirubin 0.2 mg/dL (0.2-1.0) D 01/28/17 18:10 AST 23 U/L (15-37) 01/28/17 18:10 ALT 21 U/L (12-78) 01/28/17 18:10 Alkaline Phosphatase 70 U/L (45-117) 01/28/17 18:10 Total Protein 6.6 g/dl (6.4-8.2) 01/28/17 18:10 Albumin 3.1 g/dl (3.4-5.0) L 01/28/17 18:10 Urinalysis: Urine Test Results Urine Color Yellow 01/28/17 16:05 Urine Appearance Cloudy 01/28/17 16:05 Urine pH 8.0 (5.0-8.0) 01/28/17 16:05 Ur Specific [place] 1.015 (1.005-1.025) 01/28/17 16:05 Urine Protein Negative (NEGATIVE) 01/28/17 16:05 Urine Glucose (UA) Negative (NEGATIVE) 01/28/17 16:05 Urine Ketones Negative (NEGATIVE) 01/28/17 16:05 Urine Blood 1+ (NEGATIVE) H 01/28/17 16:05 Urine Nitrite Positive (NEGATIVE) 01/28/17 16:05 Urine Bilirubin Negative (NEGATIVE) 01/28/17 16:05 Ur Leukocyte Esterase 3+ (NEGATIVE) H 01/28/17 16:05 Urine RBC 1 /hpf (0-3) 01/28/17 16:05 Urine WBC 20 /hpf (3-5) 01/28/17 16:05 Urine Bacteria Rare /hpf (NONE SEEN) 01/28/17 16:05 Urine Mucus Many 01/28/17 16:05 ASSESSMENT AND PLAN: 1. SIRS due to acute UTI. Hemodynamically stable, no signs of an organ dysfunction. Lactic acid is mildly elevated. Previous U culture are positive for Enterococcus susceptible to levaquin. - IVF - obtain urine culture - IV levaquin - ID evaluation - blood cultures 2. Cutaneal candidiasis - Apply Nystatin bid to affected areas and local wound care 3. Functional quadriplegia secondary to anoxic brain injury - Turn and position patient - Decubitus preventions 4. Sacral decubitus ulcer - Local wound care 5. Dvt ppx - Heparin bid Observation, if there is further need for IV abx due to possible MDR bacteria after first midnight of hospitalization, will admit. Full code. Documentation prepared by Toshia Jacob, acting as medical investigator for Willis Lockhart M.D.
[2017-01-28 20:23] LABS: VENOUS PH 7.38 (7.32-7.42)
[2017-01-28 20:24] LABS: VENOUS BLOOD GAS HCO3 29.5 meq/L (19-25)
[2017-01-28] MEDS ORDERED: SODIUM CHLORIDE 500 ML IV STA (20:32)
--- NOTE | 2017-01-28 20:32 | HP ---
Addendum entered and electronically signed by Rudi Correa RES 01/28/17 22: 17: Cerumen impaction Plan Debrox otic AU BID Ear irrigation BID with Saline mixed with hydrogen Peroxide 1:10, 200 ml each time Original Note: CHIEF COMPLAINT: Foul smelling urine PCP: HISTORY OF PRESENT ILLNESS: 89 year old female with Pmh of recurrent sepsis from UTI , seizure disorder, functional quadriplegia, dementia, anoxic brain injury, respiratory failure requiring intubation twice presented to the ED accompanied by son for foul smelling urine. Symptoms started on Saturday after been discharged from hospital for Altered Mental Status from medication effect. The urine was yellow, cloudy, foul smelling. Pt also had discomfort on urination per son, but no urinary frequency, no hematuria. Pt has urinary incontinence and had multiple episode of UTI in the past. No fever or chills, no n/v, No diarrhea, no abdominal pain, no worsening in mental status. Pt has chest congestion and mild cough with yellow sputum since last admission but CXR was negative. ER course was notable for: (1) CBC, CMP, CXR, UA (2) Cipro 400mg IV once Recent Travel: None PAST MEDICAL HISTORY: Recurrent sepsis from UTI , seizure disorder, functional quadriplegia, dementia , anoxic brain injury, respiratory failure requiring intubation twice PAST SURGICAL HISTORY: cataract Surgery, C section Social History: Lives with son Smoking:none Alcohol:none Drugs: none Family History: Non contributory Allergies Penicillins Allergy (Verified 01/28/17 15:38) carbidopa Adverse Reaction (Verified 01/28/17 15:38) levetiracetam [From [facility]] Adverse Reaction (Verified 01/28/17 15:38) mirtazapine Adverse Reaction (Verified 01/28/17 15:38) HOME MEDICATIONS: Home Medications Medication Instructions Recorded Memantine HCl [Namenda Liquid] 5 mg PO DAILY #30 ml 09/14/16 Divalproex Sprinkle [Depakote 2 cap PO BID #120 cap.sprink 01/25/17 Sprinkle -] REVIEW OF SYSTEMS CONSTITUTIONAL: Absent: fever, chills, diaphoresis, generalized weakness, malaise, loss of appetite, weight change HEENT: Absent: rhinorrhea, nasal congestion, throat pain, throat swelling, difficulty swallowing, mouth swelling, ear pain, eye pain, visual changes CARDIOVASCULAR: Absent: chest pain, syncope, palpitations, irregular heart rate, lightheadedness , peripheral edema RESPIRATORY: cough, Absent: shortness of breath, dyspnea with exertion, orthopnea, wheezing, stridor , hemoptysis GASTROINTESTINAL: Absent: abdominal pain, abdominal distension, nausea, vomiting, diarrhea, constipation, melena, hematochezia GENITOURINARY: dysuria, Absent: frequency, urgency, hesitancy, hematuria, flank pain, genital pain MUSCULOSKELETAL: Absent: myalgia, arthralgia, joint swelling, back pain, neck pain SKIN: Absent: rash, itching, pallor HEMATOLOGIC/IMMUNOLOGIC: Absent: easy bleeding, easy bruising, lymphadenopathy, frequent infections ENDOCRINE: Absent: unexplained weight gain, unexplained weight loss, heat intolerance, cold intolerance NEUROLOGIC: Absent: headache, focal weakness or paresthesias, dizziness, unsteady gait, seizure, mental status changes, bladder or bowel incontinence PSYCHIATRIC: Absent: anxiety, depression, suicidal or homicidal ideation, hallucinations. PHYSICAL EXAMINATION Vital Signs - 24 hr 01/28/17 15:38 Temperature 98.1 F Pulse Rate 74 Respiratory 20 Rate Blood Pressure 188/93 O2 Sat by Pulse 97 Oximetry (%) GENERAL: Awake, alert, and oriented to person only, in no acute distress. HEAD: Normal with no signs of trauma. NECK: Normal range of motion, supple without lymphadenopathy, JVD, or masses. erythema and moisture in neck, worse on left side LUNGS: Breath sounds equal, diminished to auscultation bilaterally. No wheezes, and no crackles. No accessory muscle use. HEART: Regular rate and rhythm, normal S1 and S2 with systolic murmur, rub or gallop. ABDOMEN: Soft, not distended, normoactive bowel sounds, no guarding, no rebound , no masses. No hepatomegaly or splenomegaly. Mild supra pubic tenderness MUSCULOSKELETAL:right hand contracted. limited rom in all ext. No bony deformities or tenderness. No CVA tenderness. UPPER EXTREMITIES: 2+ pulses, warm, well-perfused. No cyanosis. No clubbing. No peripheral edema. LOWER EXTREMITIES: 2+ pulses, warm, well-perfused. No calf tenderness. No peripheral edema. NEUROLOGICAL: Unable to assess cranial nerves, pt not cooperating, moves all ext, withdraw to pain. Occasional slow, one word speech. non ambulatory PSYCHIATRIC: poor eye contact, closed eyes. flat affect. SKIN: Warm, dry, normal turgor, no rashes or lesions noted, normal capillary refill. Stage 2 sacrum 4cm diameter and surrounding area of non blanching redness. Left breast redness and scaliness. Laboratory Results - last 24 hr 01/28/17 01/28/17 01/28/17 16:05 18:10 18:10 WBC 5.1 RBC 4.09 Hgb 12.8 Hct 38.8 MCV 94.8 MCHC 33.1 RDW 13.8 Plt Count 243 MPV 8.0 Neutrophils % 72.3 Lymphocytes % 17.2 Monocytes % 8.2 Eosinophils % 1.7 Basophils % 0.6 INR 1.12 PTT (Actin FS) 32.6 Sodium Potassium Chloride Carbon Dioxide Anion Gap BUN Creatinine Creat Clearance w eGFR Random Glucose Lactic Acid Calcium Total Bilirubin AST ALT Alkaline Phosphatase Creatine Kinase Troponin I Total Protein Albumin Urine Color Yellow Urine Appearance Cloudy Urine pH 8.0 Ur Specific [place] 1.015 Urine Protein Negative Urine Glucose (UA) Negative Urine Ketones Negative Urine Blood 1+ H Urine Nitrite Positive Urine Bilirubin Negative Urine Urobilinogen Negative Ur Leukocyte Esterase 3+ H Urine RBC 1 Urine WBC 20 Urine Bacteria Rare Urine Mucus Many 01/28/17 01/28/17 18:10 18:10 WBC RBC Hgb Hct MCV MCHC RDW Plt Count MPV Neutrophils % Lymphocytes % Monocytes % Eosinophils % Basophils % INR PTT (Actin FS) Sodium 136 Potassium 4.8 D Chloride 97 L Carbon Dioxide 29 Anion Gap 10 BUN 5 L Creatinine 0.3 L Creat Clearance w eGFR > 60 Random Glucose 87 Lactic Acid 2.430 H* Calcium 8.1 L Total Bilirubin 0.2 D AST 23 ALT 21 Alkaline Phosphatase 70 Creatine Kinase 69 Troponin I < 0.02 Total Protein 6.6 Albumin 3.1 L Urine Color Urine Appearance Urine pH Ur Specific [place] Urine Protein Urine Glucose (UA) Urine Ketones Urine Blood Urine Nitrite Urine Bilirubin Urine Urobilinogen Ur Leukocyte Esterase Urine RBC Urine WBC Urine Bacteria Urine Mucus ASSESSMENT/PLAN: UTI r/o Sepsis Does not meet criteria for SIRS and QSofa Lactic acid 2.4 UA with 3+ leuk esterse, positive nitrite, wbc 20 cloudy foul smelling urine with discomfort on urination at home received Cipro 400mg last UTIs were positive for Staph S., Enterococcus and E.coli all sensitive to Fluroquinolones Start Levaquin 750mg IV daily Bolus NS 500ml/h Start NS at 75ml/h Repeat lactic acid in 2 hours F/u urine culture F/u Blood culture Candidal rash left neck Under left breast Nystatin Powder BID Seizure disorder Continue [place] Sacral pressure ulcer stage 2 Non infected Non adherent dressing Daily and PRN dressing dressing with saline and gauze cleaning Dementia Continue Namenda 5mg Daily Functional quadriplegia Likely due to Anoxic brain injury Turn Q2h Aspiration precaution HOB elevated FEN Fluid: NS at 75ml/h Electrolytes: NO abnormalities Nutrition: puree diet DVT: heparin 5000 U Sq BID Disposition: Observation Medsurg Visit type - Emergency Visit Emergency Visit: Yes Care time: The patient presented to the Emergency Department on the above date and was hospitalized for further evaluation of their emergent condition. - New Patient This patient is new to me today: Yes Date on this admission: 01/28/17 - Critical Care Critical Care patient: No
[2017-01-28] MEDS: HEPARIN NA (PORCINE) 5,000 UNITS/ML 1ML VIAL SQ SCH (23:23)
[2017-01-29] MEDS: DIVALPROEX SODIUM 125 MG SPRINKLE CAPS (FP) PO SCH ×3 (01:20→21:22)
[2017-01-29] MEDS: NYSTATIN POWDER 100,000 UNITS/GM - 15 GM TOPICAL POWDER TP SCH ×3 (01:21→21:22)
[2017-01-29] MEDS: CARBAMIDE PEROXIDE 6.5% OTIC 15 ML BOTTLE AU SCH ×3 (01:21→21:21)
[2017-01-29] MEDS: MEMANTINE HCL 5 MG TABLET (UD) PO SCH ×2 (01:21→12:05)
[2017-01-29] MEDS: SODIUM CHLORIDE 1,000 ML IV SCH ×2 (01:22→21:23)
[2017-01-29 06:48] LABS: MCH 31.6 pg (25.7-33.7); MCHC 33.6 g/dl (32.0-36.0); MEAN CELL VOLUME 94.1 fl (80-96); MEAN PLT VOLUME 7.5 fl (7.5-11.1); PLATELET COUNT 216 K/MM3 (134-434); RDW 13.4 % (11.6-15.6)
[2017-01-29 07:02] LABS: CALCIUM 7.5 mg/dL (8.5-10.1); COCKROFT - GAULT 163.8545; CREATININE 0.2 mg/dL (0.55-1.02)
[2017-01-29] MEDS ORDERED: LEVOFLOXACIN 750 MG IVPB 150 ML IVPB ONE (08:29)
[2017-01-29] MEDS: LEVOFLOXACIN 750 MG IVPB 150 ML IVPB SCH ×2 (08:30→10:40)
[2017-01-29] MEDS ORDERED: MEMANTINE HCL 5 MG TABLET (UD) PO SCH (10:00)
[2017-01-29] MEDS ORDERED: HEPARIN NA (PORCINE) 5,000 UNITS/ML 1ML VIAL ONE (14:58)
[2017-01-29] MEDS: HEPARIN NA (PORCINE) 5,000 UNITS/ML 1ML VIAL SQ SCH ×2 (15:15→21:23)
--- NOTE | 2017-01-29 15:37 | PN ---
Teaching Attending Note Name of Resident: Shaista Orourke ATTENDING PHYSICIAN STATEMENT I saw and evaluated the patient. I reviewed the resident's note and discussed the case with the resident. I agree with the resident's findings and plan as documented. SUBJECTIVE:noverbal. alert. resting comfortable OBJECTIVE: Last Vital Signs Temp Pulse Resp BP Pulse Ox 98.1 F 86 20 152/62 99 01/29/17 14:42 01/29/17 14:42 01/29/17 14:42 01/29/17 14:42 01/29/17 07:19 General NAD, nonverbal CV S1 S2 RRR no murmur/rub/gallop Lungs CTA B/L no wheezing/rales/rhonchi Abdomen sfot NT/ND Skin scaling and erythema on L side of chest, no oozing or skin breakage, non tender ASSESSMENT AND PLAN: 89yo F with PMH functional quadriplegia, anoxic brain injury and seizure presented to the ER and was admitted for further evaluation of their emergent condition 1. Acute cystitis- mild lactic acidosis. will repeat lactic acid. will d/c IVF if normalized. on levaquin day1 (received cipro in the ER). hx of E Faecalis urrutia -sensitive. will wait for UCx 2. Skin candidasis- on nystatin 3. seizure- medication adjusted on recent admission. cont depakote 4. DVT ppx- hep sq
[2017-01-29 15:51] VITALS: BMI 16.0
--- NOTE | 2017-01-29 17:12 | EKG ---
Test Reason : Blood Pressure : / mmHG Vent. Rate : 061 BPM Atrial Rate : 061 BPM P-R Int : 156 ms QRS Dur : 072 ms QT Int : 414 ms P-R-T Axes : 041 -30 041 degrees QTc Int : 416 ms NORMAL SINUS RHYTHM LEFT AXIS DEVIATION INFERIOR INFARCT (CITED ON OR BEFORE 28-JAN-2017) CANNOT RULE OUT ANTERIOR INFARCT , AGE UNDETERMINED ABNORMAL ECG WHEN COMPARED WITH ECG OF 28-JAN-2017 15:47, NO SIGNIFICANT CHANGE WAS FOUND Confirmed by MARY DORANTES MD ([id number]) on 01/29/2017 5:11:52 PM Referred By: Confirmed By:MARY DORANTES MD
--- NOTE | 2017-01-29 17:13 | EKG ---
Test Reason : Blood Pressure : / mmHG Vent. Rate : 076 BPM Atrial Rate : 076 BPM P-R Int : 150 ms QRS Dur : 064 ms QT Int : 362 ms P-R-T Axes : 070 -08 053 degrees QTc Int : 407 ms NORMAL SINUS RHYTHM INFERIOR INFARCT (CITED ON OR BEFORE 28-JAN-2017) ABNORMAL ECG WHEN COMPARED WITH ECG OF 22-JAN-2017 01:00, PREMATURE ATRIAL COMPLEXES ARE NO LONGER PRESENT Confirmed by JAYNA PENA, MARY ([id number]) on 01/29/2017 5:13:25 PM Referred By: Confirmed By:MARY DORANTES MD
--- NOTE | 2017-01-29 17:39 | PN ---
Physical Exam: SUBJECTIVE: Patient seen and examined by me at bedside. Patient is sleeping but is arousable. She does not open her eyes which is baseline. Otherwise, unable to answer questions due to patients mental status. OBJECTIVE: Vital Signs Period Temp Pulse Resp BP Sys/Angela Pulse Ox Last 24 Hr 97.8 F-98.8 F 63-89 17-20 136-158/62-73 97-99 GENERAL: Sleeping but easily arousable NECK: Erythema and scaly like rash, worse on the left side LUNGS: Breath sounds equal, clear to auscultation bilaterally, no wheezes, no crackles, no accessory muscle use. HEART: Regular rate and rhythm, S1, S2 without murmur, rub or gallop. ABDOMEN: Soft, nontender, nondistended, normoactive bowel sounds, no guarding. EXTREMITIES: No peripheral edema. NEUROLOGICAL: Non-ambulatory, nonverbal Laboratory Results - last 24 hr 01/28/17 01/29/17 01/29/17 20:00 06:20 06:20 WBC 6.0 RBC 3.80 Hgb 12.0 Hct 35.7 MCV 94.1 MCHC 33.6 RDW 13.4 Plt Count 216 MPV 7.5 VBG pH 7.38 POC VBG pCO2 51.2 POC VBG pO2 42.6 D Mixed VBG HCO3 29.5 H Sodium 134 L Potassium 4.3 Chloride 100 Carbon Dioxide 25 Anion Gap 9 BUN 5 L Creatinine 0.2 L D Random Glucose 98 Calcium 7.5 L Active Medications Generic Name Dose Route Start Last Admin Trade Name Freq PRN Reason Stop Dose Admin Carbamide Perox/Anhydrous Glycerin 10 drop 01/28/17 22:00 01/29/17 12:03 Debrox - AU 10 drop BID LEA Administration Divalproex Sodium 250 mg 01/28/17 22:00 01/29/17 12:04 Depakote Sprinkle Caps - PO 250 mg BID LEA Administration Heparin Sodium (Porcine) 5,000 unit 01/28/17 22:00 01/29/17 15:15 Heparin - SQ 5,000 unit BID LEA Administration Levofloxacin 150 mls @ 150 mls/hr 01/29/17 08:00 01/29/17 10:40 Levaquin 750 Mg Premixed Ivpb - IVPB Not Given DAILY LEA Sodium Chloride 1,000 mls @ 75 mls/hr 01/28/17 20:30 01/29/17 01:22 Normal Saline - IV 75 mls/hr ASDIR LEA Administration Memantine 5 mg 01/28/17 22:00 01/29/17 12:05 Namenda - PO Not Given DAILY LEA Nystatin 1 applic 01/28/17 22:00 01/29/17 12:05 Nystop Powder - TP 1 applic BID LEA Administration ASSESSMENT/PLAN: Patient is an 89 year old female with a PMHx of seizure disorder, 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 Patient admitted for UTI for further management and monitoring. Urinary Tract Infection -Does not meet criteria for SIRS -History of recurrent UTI's all sensitive to Fluroquinolones -Lactic acid 2.3 with repeat pending -Continue Levaquin 750mg IV daily -Continue IV NS @75mls/hr Skin Candidasis -Continue Nystatin BID Seizure Disorder -Continue Depakote 250mg BID Sacral pressure ulcer stage 2 -Non infected -Continue Dressing with saline and gauze cleaning Dementia -Continue Namenda 5mg Daily Functional quadriplegia Secondary to Anoxic brain injury -Turn Q2h -Aspiration precaution -HOB elevated F/E/N -IV NS at 75ml/h -Electrolytes wnl -Puree diet Prophylaxis -Heparin 5000 U Sq BID for DVT Disposition -Under Observation. Anticipating discharge tomorrow Visit type - Emergency Visit Emergency Visit: Yes ED Registration Date: 01/28/17 Care time: The patient presented to the Emergency Department on the above date and was hospitalized for further evaluation of their emergent condition. - New Patient This patient is new to me today: Yes Date on this admission: 01/30/17 - Critical Care Critical Care patient: No
[2017-01-29 20:12] LABS: URINE APPEARANCE CLEAR; URINE BILIRUBIN NEGATIVE (NEGATIVE); URINE COLOR STRAW; URINE GLUCOSE (UA) NEGATIVE (NEGATIVE); URINE KETONE NEGATIVE (NEGATIVE); URINE NITRITE NEGATIVE (NEGATIVE); URINE PROTEIN NEGATIVE (NEGATIVE); URINE UROBILINOGEN NEGATIVE E.U./dl (0.2-1.0)
[2017-01-29 20:15] LABS: URINE BLOOD 1+ (NEGATIVE); URINE LEUK ESTERASE 1+ (NEGATIVE)
[2017-01-29 20:42] LABS: URINE BACTERIA RARE /hpf (NONE SEEN); URINE MUCUS RARE; URINE RBC 4 /hpf (0-3); URINE WBC 1 /hpf (3-5)
[2017-01-29] MEDS ORDERED: PT OWN MED DRAWER 7, Y5N ONE (21:20)
[2017-01-29] MEDS ORDERED: SODIUM CHLORIDE 250 ML IV STA (23:12)
[2017-01-30 09:08] LABS: CALCIUM 7.6 mg/dL (8.5-10.1); COCKROFT - GAULT 79.56; CREATININE 0.3 mg/dL (0.55-1.02)
[2017-01-30] MEDS ORDERED: PT OWN MED DRAWER 7, Y5N ONE (10:35)
[2017-01-30] MEDS: LEVOFLOXACIN 750 MG IVPB 150 ML IVPB SCH (10:37)
[2017-01-30] MEDS: MEMANTINE HCL 5 MG TABLET (UD) PO SCH (10:42)
[2017-01-30] MEDS: CARBAMIDE PEROXIDE 6.5% OTIC 15 ML BOTTLE AU SCH (10:42)
[2017-01-30] MEDS: DIVALPROEX SODIUM 125 MG SPRINKLE CAPS (FP) PO SCH (10:42)
[2017-01-30] MEDS: HEPARIN NA (PORCINE) 5,000 UNITS/ML 1ML VIAL SQ SCH (10:47)
[2017-01-30] MEDS: NYSTATIN POWDER 100,000 UNITS/GM - 15 GM TOPICAL POWDER TP SCH (10:47)
--- NOTE | 2017-01-30 11:52 | PN ---
Teaching Attending Note Name of Resident: Shaista Orourke ATTENDING PHYSICIAN STATEMENT I saw and evaluated the patient. I reviewed the resident's note and discussed the case with the resident. I agree with the resident's findings and plan as documented. SUBJECTIVE:alert, nonverbal OBJECTIVE: Last Vital Signs Temp Pulse Resp BP Pulse Ox 98.5 F 64 20 140/63 99 01/30/17 06:15 01/30/17 06:15 01/30/17 06:15 01/30/17 06:01/30/17 04:00 General NAD, nonverbal CV S1 S2 RRR no murmur/rub/gallop Lungs CTA B/L no wheezing/rales/rhonchi Abdomen sfot NT/ND Skin scaling and erythema on L side of chest, no oozing or skin breakage, non tender ASSESSMENT AND PLAN: 89yo F with PMH functional quadriplegia, anoxic brain injury and seizure presented to the ER and was admitted for further evaluation of their emergent condition 1. Acute cystitis-lactic acidosis resolved. afebrile with no leukocytosis. on Levaquin day 2. awaiting UCx. should obtain today. today is day 3 of total antibiotics. (received cipro in ER). if cx sensitive will not need to d/c on antibitotics. 2. Skin candidasis- on nystatin 3. seizure- medication adjusted on recent admission. cont depakote 4. DVT ppx- hep sq 5. d/c home today pending results of UCx
[2017-01-30 13:49] VITALS: TEMP 98.2
--- NOTE | 2017-01-30 13:57 | DS ---
Physical Exam: SUBJECTIVE: Patient seen and examined by me at bedside. No overnight events noted. Patient is at baseline, non-verbal and non-ambulatory. Afebrile since admission with no leukocytosis. OBJECTIVE: Vital Signs Period Temp Pulse Resp BP Sys/Angela Pulse Ox Last 24 Hr 97.6 F-98.5 F 64-86 18-20 140-153/62-82 99-99 PHYSICAL EXAM GENERAL: Sleeping but easily arousable NECK: Erythema and scaly like rash, worse on the left side LUNGS: Breath sounds equal, clear to auscultation bilaterally, no wheezes, no crackles, no accessory muscle use. HEART: Regular rate and rhythm, S1, S2 without murmur, rub or gallop. ABDOMEN: Soft, nontender, nondistended, normoactive bowel sounds, no guarding. EXTREMITIES: No peripheral edema. NEUROLOGICAL: Non-ambulatory, nonverbal Skin Erythema and scaling of the left chest LABS Laboratory Results - last 24 hr 01/29/17 01/29/17 01/30/17 18:30 21:20 06:30 Sodium 137 Potassium 4.0 Chloride 102 Carbon Dioxide 25 Anion Gap 10 BUN 4 L Creatinine 0.3 L D Random Glucose 87 Lactic Acid 2.331 H* Calcium 7.6 L Urine Color Straw Urine Appearance Clear Urine pH 8.0 Ur Specific [place] 1.015 Urine Protein Negative Urine Glucose (UA) Negative Urine Ketones Negative Urine Blood 1+ H Urine Nitrite Negative Urine Bilirubin Negative Urine Urobilinogen Negative Ur Leukocyte Esterase 1+ H D Urine RBC 4 Urine WBC 1 Ur Epithelial Cells Rare Urine Bacteria Rare Urine Mucus Rare 01/30/17 06:30 Sodium Potassium Chloride Carbon Dioxide Anion Gap BUN Creatinine Random Glucose Lactic Acid 1.267 Calcium Urine Color Urine Appearance Urine pH Ur Specific [place] Urine Protein Urine Glucose (UA) Urine Ketones Urine Blood Urine Nitrite Urine Bilirubin Urine Urobilinogen Ur Leukocyte Esterase Urine RBC Urine WBC Ur Epithelial Cells Urine Bacteria Urine Mucus HOSPITAL COURSE: Patient is an 89 year old female with a PMHx of recurrent UTI's, seizure disorder, dementia, 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 Patient's son reported she was having discomfort on urination. Cultures, labs, and U/A were done with a dose of Ciprofloxacin in the ED. Patient was found to have lactic acidosis and was admitted for UTI with lactic acidosis. Patient from admission and throughout the hospital course was afebrile with no leukocytosis and negative U/A. Patient was treated with IV Levaquin and IV fluids while urine cultures were pending. Today, wound cultures were negative, patient completed a three day course of Levaquin and was at baseline. Lactic acid resolved and patient was stable for discharge. ER course was notable for: Date of Admission:01/28/17 Date of Discharge: 01/30/17 Minutes to complete discharge: 35 Discharge Summary Reason For Visit: URINARY TRACT INFECTION Current Active Problems UTI symptoms (Acute) Dementia (Chronic) Parkinson disease (Chronic) Seizure disorder, focal motor (Chronic) Condition: Stable - Instructions Diet, Activity, Other Instructions: -She may resume regular diet -Continue to take current home medications -Continue to apply cream on her neck for the fungal skin infection -Follow up with Primary care doctor within a week -If you she develops a fever above >101.0 F or has worsening symptoms such as altered mental status, return to the emergency department Referrals: Mika Dickerson MD, MD [Primary Care Provider] - Disposition: HOME - Home Medications Comprehensive Discharge Medication List: Ambulatory Orders Memantine HCl [Namenda Liquid] 5 mg PO DAILY #30 ml 09/14/16 Divalproex Sprinkle [Depakote Sprinkle -] 2 cap PO BID #120 cap.sprink 01/25/17 Nystatin Powder [Nystop Powder -] 1 applic TP BID #1 applic 01/30/17 This patient is new to me today: No Emergency Visit: Yes ED Registration Date: 01/28/17 Care time: The patient presented to the Emergency Department on the above date and was hospitalized for further evaluation of their emergent condition. Critical Care patient: No - Discharge Referral Referred to [facility] No
[2017-01-30 15:37] VITALS: BP 140/68; PULSE 89
== END 2017-01-30 19:21 | disposition home or self-care (01) | DRG 463 ==
LOC: JER 15:20 → JERBED 19:44 → J6S 01-29 15:40
PROVIDERS: ADMIT Internal Medicine; ATTEND Internal Medicine
DX: N39.0 Urinary tract infection, site not specified (principal); F03.90 Unspecified dementia, unspecified severity, without behavioral disturbance, psychotic disturbance, mood disturbance, and anxiety; G93.1 Anoxic brain damage, not elsewhere classified; R53.2 Functional quadriplegia; G40.909 Epilepsy, unspecified, not intractable, without status epilepticus; M43.6 Torticollis; L89.152 Pressure ulcer of sacral region, stage 2; B37.2 Candidiasis of skin and nail; E86.0 Dehydration; E87.1 Hypo-osmolality and hyponatremia; R64 Cachexia; Z68.1 Body mass index [BMI] 19.9 or less, adult; H61.20 Impacted cerumen, unspecified ear; E87.2 Acidosis
CPT/HCPCS: 36415; 71010-TC; 80048; 80053; 81003; 81015; 82550; 82803; 83605; 84484; 85025; 85027; 85610; 85730; 87040; 87086; 93005; 93010; 99285-25; J1644

== ENCOUNTER 2017-02-04 19:02 | Inpatient (IN) | payer OTHER ==
[2017-02-04 19:54] VITALS: BMI 18.1
[2017-02-04 20:27] LABS: BASOPHIL 0.7 % (0-2.0); EOSINOPHIL 1.5 % (0-4.5); MCH 31.4 pg (25.7-33.7); MCHC 33.7 g/dl (32.0-36.0); MEAN CELL VOLUME 93.1 fl (80-96); MEAN PLT VOLUME 8.4 fl (7.5-11.1); NEUTROPHILS 65.5 % (42.8-82.8); PLATELET COUNT 248 K/MM3 (134-434); RDW 13.9 % (11.6-15.6); URINE APPEARANCE CLEAR; URINE BILIRUBIN NEGATIVE (NEGATIVE); URINE BLOOD NEGATIVE (NEGATIVE); URINE COLOR YELLOW; URINE GLUCOSE (UA) NEGATIVE (NEGATIVE); URINE KETONE NEGATIVE (NEGATIVE); URINE NITRITE POSITIVE (NEGATIVE); URINE PROTEIN NEGATIVE (NEGATIVE); URINE UROBILINOGEN NEGATIVE E.U./dl (0.2-1.0); WHITE BLOOD COUNT 4.6 K/mm3 (4.0-10.0)
[2017-02-04 20:37] LABS: URINE LEUK ESTERASE 2+ (NEGATIVE)
[2017-02-04 20:43] LABS: URINE RBC 1 /hpf (0-3); URINE WBC 28 /hpf (3-5)
--- NOTE | 2017-02-04 22:26 | PDOC ---
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 Patient is accompanied by son who provided history. Son reports that the patient has not been alert for the past ten days. She is nonverbal at baseline, but he reports that she usually will interact by looking around or minimally participating with her surroundings. Son states that hes been having to spoon feed her liquids for the past few days. 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 Denies fever, vomiting, diarrhea, or complaints. Patient was recently discharged from admission on 01/30/17 for UTI with lactic acidosis. Patient treated with IV levaquin and IV fluids and discharged when lactic acid resolved. <Shena Mora - Last Filed: 02/05/17 02:03> <Rufina Brennan - Last Filed: 02/06/17 03:11> - General Chief Complaint: Lethargy Stated Complaint: WEAKNESS Time Seen by Provider: 02/04/17 19:08 Past History <Shena Mora - Last Filed: 02/05/17 02:03> - Past Medical History Anemia: No Asthma: No Cancer: No Cardiac Disorders: No COPD: No CHF: No Dementia: Yes Diabetes: No GI Disorders: No Disorders: Yes (UTI) HTN: No Hypercholesterolemia: No Liver Disease: No Psychiatric Problems: Yes (dementia) Seizures: Yes Thyroid Disease: No - Surgical History Cardiac Surgery: No Lung Surgery: No Neurologic Surgery: No - Immunization History Immunization Up to Date: Yes - Psycho/Social/Smoking Cessation Hx Anxiety: No Suicidal Ideation: No Smoking History: Never smoked Have you smoked in the past 12 months: No Information on smoking cessation initiated: No Hx Alcohol Use: No Drug/Substance Use Hx: No Substance Use Type: None Hx Substance Use Treatment: No <Rufina Brennan - Last Filed: 02/06/17 03:11> - Past Medical History Allergies/Adverse Reactions: Allergies Allergy/AdvReac Type Severity Reaction Status Date / Time Penicillins Allergy Verified 02/04/17 19:06 carbidopa AdvReac Verified 02/04/17 19:06 levetiracetam [From [facility]] AdvReac Verified 02/04/17 19:06 mirtazapine AdvReac Verified 02/04/17 19:06 Home Medications: Ambulatory Orders Memantine HCl [Namenda Liquid] 5 mg PO DAILY #30 ml 09/14/16 Divalproex Sprinkle [Depakote Sprinkle -] 2 cap PO BID #120 cap.sprink 01/25/17 Nystatin Powder [Nystop Powder -] 1 applic TP BID #1 applic 01/30/17 Review of Systems - Review of Systems Comments:: 02/04/17 22:49 Patient unable to participate in ROS. <Shena Mora - Last Filed: 02/05/17 02:03> *Physical Exam - Vital Signs Last Vital Signs Temp Pulse Resp BP Pulse Ox 98.5 F 70 13 175/69 99 02/04/17 20:20 02/04/17 21:40 02/04/17 21:40 02/04/17 21:40 02/04/17 21:40 - Physical Exam Comments: 02/04/17 22:49 GENERAL: Cachectic, petite. Awake. No acute distress. HEENT: Normocephalic, atraumatic. PERRLA, EOMI. No conjunctival pallor. Sclera are non- icteric. Moist mucous membranes. Oropharynx is clear. NECK: Supple. Full ROM. No JVD. Carotid pulses 2+ and symmetric, without bruits. No thyromegaly. No lymphadenopathy. CARDIOVASCULAR: Regular rate and rhythm. No murmurs, rubs, or gallops. Distal pulses are 2+ and symmetric. PULMONARY: No evidence of respiratory distress. Lungs clear to auscultation bilaterally. No wheezing, rales or rhonchi. ABDOMINAL: Flat. Soft. Non-tender. Non-distended. No rebound or guarding. No organomegaly. Normoactive bowel sounds. MUSCULOSKELETAL: Normal range of motion at all joints. No bony deformities or tenderness. No CVA tenderness. EXTREMITIES: No cyanosis. No clubbing. No edema. No calf tenderness. SKIN: Chronic candidiasis in the neck fold. Warm and dry. Normal capillary refill. No rashes. No jaundice. NEUROLOGICAL: Functional quadriplegic. Chronic left torticollis. Drooling. Nonverbal, nonambulatory at baseline. <MorganShena lucas - Last Filed: 02/05/17 02:03> - Vital Signs Last Vital Signs Temp Pulse Resp BP Pulse Ox 98.5 F 70 13 175/69 99 02/04/17 20:20 02/04/17 21:40 02/04/17 21:40 02/04/17 21:40 02/04/17 21:40 <Rufina Brennnah - Last Filed: 02/06/17 03:11> ED Treatment Course - LABORATORY CBC & Chemistry Diagram: 02/04/17 20:10 02/05/17 00:55 - ADDITIONAL ORDERS Additional order review: Laboratory Results 02/04/17 02/04/17 02/04/17 20:10 20:10 20:10 INR PTT (Actin FS) Sodium Cancelled Potassium Cancelled Chloride Cancelled Carbon Dioxide Cancelled Anion Gap Cancelled BUN Cancelled Creatinine Cancelled Creat Clearance w eGFR Cancelled Random Glucose Cancelled Calcium Cancelled Total Bilirubin Cancelled AST Cancelled ALT Cancelled Alkaline Phosphatase Cancelled Creatine Kinase Cancelled Troponin I Cancelled Total Protein Cancelled Albumin Cancelled Urine Color Yellow Urine Appearance Clear Urine pH 8.0 Urine Protein Negative Urine Glucose (UA) Negative Urine Ketones Negative Urine Blood Negative Urine Nitrite Positive Urine Bilirubin Negative Urine Urobilinogen Negative Ur Leukocyte Esterase 2+ H Urine RBC 1 Urine WBC 28 Ur Epithelial Cells Rare Blood Type Cancelled Antibody Screen Cancelled Spec Expiration Date Cancelled 02/04/17 20:10 INR Cancelled PTT (Actin FS) Cancelled Sodium Potassium Chloride Carbon Dioxide Anion Gap BUN Creatinine Creat Clearance w eGFR Random Glucose Calcium Total Bilirubin AST ALT Alkaline Phosphatase Creatine Kinase Troponin I Total Protein Albumin Urine Color Urine Appearance Urine pH Urine Protein Urine Glucose (UA) Urine Ketones Urine Blood Urine Nitrite Urine Bilirubin Urine Urobilinogen Ur Leukocyte Esterase Urine RBC Urine WBC Ur Epithelial Cells Blood Type Antibody Screen Spec Expiration Date 02/04/17 20:10 RBC 3.87 MCV 93.1 MCHC 33.7 RDW 13.9 MPV 8.4 D Neutrophils % 65.5 Lymphocytes % 21.4 D Monocytes % 10.9 H Eosinophils % 1.5 Basophils % 0.7 - RADIOLOGY Radiograph Interpretation: 02/05/17 01:29 Chest X-Ray Impression: No significant interval change. Minimal atelectatic changes in the left lung base without gross evidence of infiltrates. Reported By: Rebel Jacobsen MD 02/05/17 02:04 [employer] Manager: ([email or web address]) Report Date: 02/05/2017 00:05:00 Report Status: Preliminary Begin of Report Content Referring Physician: Rufina Brennan Patient Name: Elle Perez THIS IS A PRELIMINARY REPORT FROM [facility] EXAM: CT brain without contrast IMAGES: [id number] INDICATION: Unresponsive DATE OF SERVICE: 2017-02-05 00:05:22.0 COMPARISON: FINDINGS: The ventricular system is midline and nondilated. There is mild to moderate atrophy and small vessel ischemic disease. Tiny densities in the high bilateral parietal lobes may be related to old infection old hemorrhage. There is no bleed, mass, extra-axial fluid collection or mass effect. There is stable thickening of both parietal bones, greater on the right without obvious mass such as meningioma. No skull fracture . The visualized paranasal sinuses and mastoid air cells are clear. IMPRESSION: No interval change and no evidence of acute pathology. THIS DOCUMENT HAS BEEN ELECTRONICALLY SIGNED Christopher Pond MD 02/05/2017 01:55 TIKA Calderon Please call Imaging [facility] Unit Nurse [phone] ([phone]) with questions. End of Report Content <Shena Mora - Last Filed: 02/05/17 02:03> - LABORATORY CBC & Chemistry Diagram: 02/05/17 06:00 02/05/17 06:00 - ADDITIONAL ORDERS Additional order review: Laboratory Results 02/04/17 02/04/17 02/04/17 20:10 20:10 20:10 INR PTT (Actin FS) Sodium Cancelled Potassium Cancelled Chloride Cancelled Carbon Dioxide Cancelled Anion Gap Cancelled BUN Cancelled Creatinine Cancelled Creat Clearance w eGFR Cancelled Random Glucose Cancelled Calcium Cancelled Total Bilirubin Cancelled AST Cancelled ALT Cancelled Alkaline Phosphatase Cancelled Creatine Kinase Cancelled Troponin I Cancelled Total Protein Cancelled Albumin Cancelled Urine Color Yellow Urine Appearance Clear Urine pH 8.0 Urine Protein Negative Urine Glucose (UA) Negative Urine Ketones Negative Urine Blood Negative Urine Nitrite Positive Urine Bilirubin Negative Urine Urobilinogen Negative Ur Leukocyte Esterase 2+ H Urine RBC 1 Urine WBC 28 Ur Epithelial Cells Rare Blood Type Cancelled Antibody Screen Cancelled Spec Expiration Date Cancelled 02/04/17 20:10 INR Cancelled PTT (Actin FS) Cancelled Sodium Potassium Chloride Carbon Dioxide Anion Gap BUN Creatinine Creat Clearance w eGFR Random Glucose Calcium Total Bilirubin AST ALT Alkaline Phosphatase Creatine Kinase Troponin I Total Protein Albumin Urine Color Urine Appearance Urine pH Urine Protein Urine Glucose (UA) Urine Ketones Urine Blood Urine Nitrite Urine Bilirubin Urine Urobilinogen Ur Leukocyte Esterase Urine RBC Urine WBC Ur Epithelial Cells Blood Type Antibody Screen Spec Expiration Date 02/04/17 20:10 RBC 3.87 MCV 93.1 MCHC 33.7 RDW 13.9 MPV 8.4 D Neutrophils % 65.5 Lymphocytes % 21.4 D Monocytes % 10.9 H Eosinophils % 1.5 Basophils % 0.7 - RADIOLOGY Radiology Studies Ordered: Category Date Time Status CHEST X-RAY PORTABLE* [RAD] Stat Radiology 02/04/17 19:09 Completed <Rufina Brennan - Last Filed: 02/06/17 03:11> Medical Decision Making - Medical Decision Making 02/06/17 03:07 this 89 yo female3 BIBA from home because son states the pt has been lethargic for past 10 days -recent;y admitted for same complaint -ct head -no acute intracranial pathology =UTI and antibiotics started -son felt pt has been having seizures. No seizure activity evident in ER. neuro consult to be obtained -diag: worsening dementia/seizures??/ AMS due to UTI pt admitted for antibiotics,neuro eval <Rufina Brennan - Last Filed: 02/06/17 03:11> *DC/Admit/Observation/Transfer - Attestations Scribe Attestion: 02/04/17 22:54 Documentation prepared by Shena Mora, acting as medical receptionist medical assistant for Rufina Brennan MD. <Shena Mora - Last Filed: 02/05/17 02:03> - Discharge Dispostion Admit: Yes <Rufina Brennan - Last Filed: 02/06/17 03:11> Diagnosis at time of Disposition: Hyponatremia UTI (urinary tract infection) Qualifiers: Urinary tract infection type: site unspecified Hematuria presence: without hematuria Qualified Code(s): N39.0 - Urinary tract infection, site not specified Dementia Qualifiers: Dementia type: unspecified type Dementia behavioral disturbance: without behavioral disturbance Qualified Code(s): F03.90 - Unspecified dementia without behavioral disturbance Altered mental status Qualifiers: Altered mental status type: somnolence Qualified Code(s): R40.0 - Somnolence - Referrals
[2017-02-04] MEDS ORDERED: SODIUM CHLORIDE 1,000 ML IV SCH (23:45)
[2017-02-05 01:27] LABS: ALBUMIN 2.7 g/dl (3.4-5.0); ANION GAP 9 (8-16); BILIRUBIN,TOTAL 0.3 mg/dL (0.2-1.0); CALCIUM 8.1 mg/dL (8.5-10.1); CO2 27 mmol/L (21-32); CREATININE 0.2 mg/dL (0.55-1.02); GLUCOSE,RANDOM 105 mg/dL (74-106); SGOT/AST 17 U/L (15-37); SGPT/ALT 14 U/L (12-78); TOT PROT 5.9 g/dl (6.4-8.2)
[2017-02-05 01:28] LABS: ALK PHOS 55 U/L (45-117)
--- NOTE | 2017-02-05 02:21 | HP ---
CHIEF COMPLAINT: PCP: HISTORY OF PRESENT ILLNESS: 89 year old female recently discharged january 30 after completing a 5 day course of Levaquin for UTI and lactic acidosis, and discharged on January 25 after being treated for AMS due to dilantin and being switched to Depakote, had negative EEG ; also hospitalized Jun 2015 for hyponatremia Na 130, improved with NS IVF, thought to be due to dehydration. She has PMH of recurrent sepsis from UTI , hyponatremia, seizure d/o, functional quadriplegia, dementia, anoxic brain injury, respiratory failure requiring intubation twice in the past; she presents to the ED due to altered mental status x3 three days and is described by son as being unresponsive. Per son, she has been lethargic x 10 days. She is nonverbal at baseline, but looks around. She has been unable to drink and was spoon fed liquids for the past several days. Son denies her having f.c, vomiting , diarrhea. Pt has urinary incontinence. ER course was notable for: (1) labs (2) cxr, head ct, NS IVF Recent Travel: None PAST MEDICAL HISTORY: Recurrent sepsis from UTI , seizure disorder, functional quadriplegia, dementia , anoxic brain injury, respiratory failure requiring intubation twice PAST SURGICAL HISTORY: cataract Surgery, C section Social History: Lives with son Smoking:none Alcohol:none Drugs: none Family History: Non contributory Allergies Penicillins Allergy (Verified 02/04/17 19:06) carbidopa Adverse Reaction (Verified 02/04/17 19:06) levetiracetam [From Kera] Adverse Reaction (Verified 02/04/17 19:06) mirtazapine Adverse Reaction (Verified 02/04/17 19:06) HOME MEDICATIONS: Home Medications Medication Instructions Recorded Memantine HCl [Namenda Liquid] 5 mg PO DAILY #30 ml 09/14/16 Divalproex Sprinkle [Depakote 2 cap PO BID #120 cap.sprink 01/25/17 Sprinkle -] Nystatin Powder [Nystop Powder -] 1 applic TP BID #1 applic 01/30/17 REVIEW OF SYSTEMS unable to obtain PHYSICAL EXAMINATION Vital Signs - 24 hr 02/04/17 02/04/17 02/04/17 19:07 19:30 20:20 Temperature 98.2 F 98.5 F Pulse Rate 62 Pulse Rate [ Right] Respiratory 18 Rate Blood Pressure 149/68 Blood Pressure [Right] O2 Sat by Pulse 100 Oximetry (%) 02/04/17 21:40 Temperature Pulse Rate Pulse Rate [ 70 Right] Respiratory 13 Rate Blood Pressure Blood Pressure 175/69 [Right] O2 Sat by Pulse 99 Oximetry (%) GENERAL: lethargic, eyes closed, responsive to pain, in no acute distress. HEAD: Normal with no signs of trauma. EYES: forcefully holding shut, unable to assess EARS, NOSE, THROAT: dry mucous membranes. NECK: supple without JVD, + candidiasis LUNGS: Breath sounds equal, clear to auscultation bilaterally. HEART: Regular rate and rhythm, normal S1 and S2 grade 3 systolic ej murmur ABDOMEN: Soft, nontender, not distended, normoactive bowel sounds, no guarding, no rebound, no masses. No hepatomegaly or splenomegaly. MUSCULOSKELETAL: contracted arms UPPER EXTREMITIES: 2+ pulses, warm, well-perfused. No cyanosis. No clubbing. No peripheral edema. LOWER EXTREMITIES: 1+ pulses, warm, well-perfused. No calf tenderness. No peripheral edema. NEUROLOGICAL: unresponsive but withdraws from pain PSYCHIATRIC: unresponsive SKIN: Warm, dry, decreased turgor, candidiasis in brest folds and neck, decubitus ulcer stage 2, slight discharge, no surrounding cellulitis. Laboratory Results - last 24 hr 02/04/17 02/04/17 02/04/17 20:10 20:10 20:10 WBC 4.6 RBC 3.87 Hgb 12.1 Hct 36.0 MCV 93.1 MCHC 33.7 RDW 13.9 Plt Count 248 MPV 8.4 D Neutrophils % 65.5 Lymphocytes % 21.4 D Monocytes % 10.9 H Eosinophils % 1.5 Basophils % 0.7 INR Cancelled PTT (Actin FS) Cancelled Sodium Potassium Chloride Carbon Dioxide Anion Gap BUN Creatinine Creat Clearance w eGFR Random Glucose Calcium Total Bilirubin AST ALT Alkaline Phosphatase Creatine Kinase Troponin I Total Protein Albumin Urine Color Yellow Urine Appearance Clear Urine pH 8.0 Ur Specific [place] 1.015 Urine Protein Negative Urine Glucose (UA) Negative Urine Ketones Negative Urine Blood Negative Urine Nitrite Positive Urine Bilirubin Negative Urine Urobilinogen Negative Ur Leukocyte Esterase 2+ H Urine RBC 1 Urine WBC 28 Ur Epithelial Cells Rare Blood Type Antibody Screen Spec Expiration Date 02/04/17 02/04/17 02/04/17 20:10 20:10 22:15 WBC RBC Hgb Hct MCV MCHC RDW Plt Count MPV Neutrophils % Lymphocytes % Monocytes % Eosinophils % Basophils % INR Cancelled PTT (Actin FS) Sodium Cancelled Potassium Cancelled Chloride Cancelled Carbon Dioxide Cancelled Anion Gap Cancelled BUN Cancelled Creatinine Cancelled Creat Clearance w eGFR Cancelled Random Glucose Cancelled Calcium Cancelled Total Bilirubin Cancelled AST Cancelled ALT Cancelled Alkaline Phosphatase Cancelled Creatine Kinase Cancelled Troponin I Cancelled Total Protein Cancelled Albumin Cancelled Urine Color Urine Appearance Urine pH Ur Specific [place] Urine Protein Urine Glucose (UA) Urine Ketones Urine Blood Urine Nitrite Urine Bilirubin Urine Urobilinogen Ur Leukocyte Esterase Urine RBC Urine WBC Ur Epithelial Cells Blood Type Cancelled Antibody Screen Cancelled Spec Expiration Date Cancelled 02/04/17 02/05/17 22:15 00:55 WBC RBC Hgb Hct MCV MCHC RDW Plt Count MPV Neutrophils % Lymphocytes % Monocytes % Eosinophils % Basophils % INR PTT (Actin FS) Sodium Cancelled 129 L Potassium Cancelled 4.3 Chloride Cancelled 93 L Carbon Dioxide Cancelled 27 Anion Gap Cancelled 9 BUN Cancelled 6 L D Creatinine Cancelled 0.2 L D Creat Clearance w eGFR Cancelled > 60 Random Glucose Cancelled 105 D Calcium Cancelled 8.1 L Total Bilirubin Cancelled 0.3 D AST Cancelled 17 D ALT Cancelled 14 D Alkaline Phosphatase Cancelled 55 D Creatine Kinase Cancelled Troponin I Cancelled Total Protein Cancelled 5.9 L Albumin Cancelled 2.7 L Urine Color Urine Appearance Urine pH Ur Specific [place] Urine Protein Urine Glucose (UA) Urine Ketones Urine Blood Urine Nitrite Urine Bilirubin Urine Urobilinogen Ur Leukocyte Esterase Urine RBC Urine WBC Ur Epithelial Cells Blood Type Antibody Screen Spec Expiration Date ASSESSMENT/PLAN: Altered Mental Status -baseline dementia, recent adm for AMS due to dilantin, switched to depakote -vic due to medication side effect or dehydration -Head CT, CXR negative -Afebrile, no leukocytosis and hemodynamically stable -UA + UTI but was recently d/cd after treatmetn with levaquin -hyponatremia 129 -Neuro checks Q4H -Speech and Swallow -IV hydration UTI -Does not meet criteria for SIRS; no leukocytosis or fever -Lactic acid p/d -last UTI treted with levaquin. Previous cultures positive for Staph S., Enterococcus and E.coli all sensitive to Fluroquinolones -F/u urine culture -no abx at this time Hyponatremia -Na 129, CL 93 -Na deficit 202 meq -likely due to dehydration -bun/creat 6/0.2 -IVF NS @75 -urine osmolality Candidal rash -Nystatin Powder BID left neck, left breast fold Seizure disorder -[place] Sacral pressure ulcer stage 2 -Non infected -Daily and PRN dressing change Dementia -Continue Namenda 5mg Daily Functional quadriplegia -Likely due to Anoxic brain injury -Turn Q2h -Aspiration precaution -HOB elevated FEN NS at 75ml/h f/u bmp puree diet heparin 5000 U Sq BID Disposition: Observation Medsurg Problem List - Problem (1) Altered mental status Code(s): R41.82 - ALTERED MENTAL STATUS, UNSPECIFIED Qualifiers: Altered mental status type: somnolence Qualified Code(s): R40.0 - Somnolence (2) Hyponatremia Code(s): E87.1 - HYPO-OSMOLALITY AND HYPONATREMIA (3) UTI (urinary tract infection) Code(s): N39.0 - URINARY TRACT INFECTION, SITE NOT SPECIFIED Qualifiers: Urinary tract infection type: site unspecified Hematuria presence: without hematuria Qualified Code(s): N39.0 - Urinary tract infection, site not specified (4) Dementia Code(s): F03.90 - UNSPECIFIED DEMENTIA WITHOUT BEHAVIORAL DISTURBANCE Qualifiers: Dementia type: unspecified type Dementia behavioral disturbance: without behavioral disturbance Qualified Code(s): F03.90 - Unspecified dementia without behavioral disturbance (5) Seizure disorder, focal motor Code(s): G40.109 - LOCAL-REL SYMPTC EPI W SIMP PRT SEIZ,NOT NTRCT, W/O STAT EPI (6) Anoxic brain damage Code(s): G93.1 - ANOXIC BRAIN DAMAGE, NOT ELSEWHERE CLASSIFIED (7) Lethargy Code(s): R53.83 - OTHER FATIGUE Visit type - Emergency Visit Emergency Visit: Yes Care time: The patient presented to the Emergency Department on the above date and was hospitalized for further evaluation of their emergent condition. - New Patient This patient is new to me today: Yes Date on this admission: 02/05/17 - Critical Care Critical Care patient: No
[2017-02-05] MEDS ORDERED: SODIUM CHLORIDE 1,000 ML IV SCH (03:00)
[2017-02-05] MEDS: SODIUM CHLORIDE 1,000 ML IV SCH ×2 (03:07→11:43)
--- NOTE | 2017-02-05 05:35 | PN ---
Teaching Attending Note Name of Resident: Karen Contreras ATTENDING PHYSICIAN STATEMENT I saw and evaluated the patient. I reviewed the resident's note and discussed the case with the resident. I agree with the resident's findings and plan as documented. SUBJECTIVE: 89 year old female with functional quadriplegia and baseline altered mentation brought for evaluation of worsening lethargy, possibly breakthrough seizure activity and inability to tolerate meds. PMH: - Anoxic brain injury - functional quadriplegia - seizure disorder PSH: c section, cataract surgery PMD: Tuan Brennan SH: Smoking no Alcohol no Substance use no Lives at home with her son OBJECTIVE: Vital Signs Temperature 98.5 F 02/04/17 20:20 Pulse Rate 70 02/04/17 21:40 Respiratory Rate 13 02/04/17 21:40 Blood Pressure 175/69 02/04/17 21:40 O2 Sat by Pulse Oximetry (%) 99 02/04/17 21:40 GENERAL: Awake, responds to calling her name and tactile stimuli, in no acute distress HEENT: (+)Right external auditory canal severely impacted with cerumen. Atraumatic. PERRLA, EOMI. Moist mucosa. No JVD NECK: (+)torticollis, rotated to the left LUNGS: No distress, speaks full sentences, clear to auscultation bilaterally HEART: Regular rate and rhythm, normal S1 and S2, no murmurs, rubs or gallops, peripheral pulses normal and equal bilaterally. ABDOMEN: Soft, nontender, normoactive bowel sounds. No guarding, no rebound. No masses : (+)Urinary incontinence with adult diaper EXTREMITIES: Normal inspection, Normal range of motion, no edema. No clubbing or Cyanosis. NEUROLOGICAL: Unable to perform full exam as patient does not follow commands, functional quadriplegia. SKIN: (+)Interstitial space of the lower extremities fungus present, (+)Skin of the neck erythema and trush , (+)Maceration skin break down and fungal infection under left breast, (+)Stage 2 sacral decubiti. CBC, BMP 02/04/17 20:10 02/05/17 00:55 Urine Test Results Urine Color Yellow 02/04/17 20:10 Urine Appearance Clear 02/04/17 20:10 Urine pH 8.0 (5.0-8.0) 02/04/17 20:10 Ur Specific [place] 1.015 (1.005-1.025) 02/04/17 20:10 Urine Protein Negative (NEGATIVE) 02/04/17 20:10 Urine Glucose (UA) Negative (NEGATIVE) 02/04/17 20:10 Urine Ketones Negative (NEGATIVE) 02/04/17 20:10 Urine Blood Negative (NEGATIVE) 02/04/17 20:10 Urine Nitrite Positive (NEGATIVE) 02/04/17 20:10 Urine Bilirubin Negative (NEGATIVE) 02/04/17 20:10 Ur Leukocyte Esterase 2+ (NEGATIVE) H 02/04/17 20:10 Urine RBC 1 /hpf (0-3) 02/04/17 20:10 Urine WBC 28 /hpf (3-5) 02/04/17 20:10 Ur Epithelial Cells Rare /hpf (FEW) 02/04/17 20:10 ASSESSMENT AND PLAN: 1. Acute on chronic metabolic encephalopathy, possibly 2/2 dehydration or breakthrough seizures. - swalow evaluation -neurology follow up as son reported possible breakthrough seizures 2. Abnormal UA suggestive of possible UTI - already treated with Levaquin. - obtain urine culture - hold antibiotics for now 3. Cutaneal candidiasis - Apply Nystatin bid to affected areas and local wound care 4. Functional quadriplegia secondary to anoxic brain injury - Turn and position patient - Decubitus preventions 5. Sacral decubitus ulcer - Local wound care 6. Hyponatremia- appears hypovolemic - NS IVF -Repeat BMP 7. DVT PPX - Heparin bid
[2017-02-05 06:31] LABS: MCH 31.1 pg (25.7-33.7); MCHC 33.6 g/dl (32.0-36.0); MEAN CELL VOLUME 92.6 fl (80-96); MEAN PLT VOLUME 7.8 fl (7.5-11.1); PLATELET COUNT 242 K/MM3 (134-434); RDW 13.5 % (11.6-15.6); WHITE BLOOD COUNT 5.7 K/mm3 (4.0-10.0)
[2017-02-05 07:03] LABS: CALCIUM 7.7 mg/dL (8.5-10.1); COCKROFT - GAULT 122.893; CREATININE 0.2 mg/dL (0.55-1.02); MAGNESIUM 1.8 mg/dL (1.8-2.4); PHOSPHOROUS 3.6 mg/dL (2.5-4.9)
[2017-02-05] MEDS ORDERED: MEMANTINE HCL 5 MG PO SCH (10:00)
[2017-02-05] MEDS ORDERED: DIVALPROEX SODIUM 125 MG SPRINKLE CAPS (FP) PO SCH (10:00)
--- NOTE | 2017-02-05 11:23 | EKG ---
Test Reason : Blood Pressure : / mmHG Vent. 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
--- NOTE | 2017-02-05 11:26 | CONSULT ---
Admitting History and Physical - Primary Care Physician PCP: Galindo Ayala - Admission History of Present Illness: Per EMR: "HISTORY OF PRESENT ILLNESS: 89 year old female recently discharged january 30 after completing a 5 day course of Levaquin for UTI and lactic acidosis, and discharged on January 25 after being treated for AMS due to dilantin and being switched to Depakote, had negative EEG ; also hospitalized Jun 2015 for hyponatremia Na 130, improved with NS IVF, thought to be due to dehydration. She has PMH of recurrent sepsis from UTI , hyponatremia, seizure d/o, functional quadriplegia, dementia, anoxic brain injury, respiratory failure requiring intubation twice in the past; she presents to the ED due to altered mental status x3 three days and is described by son as being unresponsive. Per son, she has been lethargic x 10 days. She is nonverbal at baseline, but looks around. She has been unable to drink and was spoon fed liquids for the past several days. Son denies her having f.c, vomiting , diarrhea. Pt has urinary incontinence." Selected Entries 02/05/17 08:05 Temperature 97.7 F Laboratory Tests 02/04/17 02/05/17 20:10 06:00 WBC 4.6 5.7 Last seen by me 01/24/17-"On Puree and thin liquid. Does best when fed by her son. Tolerating diet well. Intermittent oral holding. 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 ) - Smoking History Smoking history: Never smoked Have you smoked in the past 12 months: No - Alcohol/Substance Use Hx Alcohol Use: No History - Admission Reason For Visit: UTI DEMENTIA HYPONATREMIA - Diagnostics X-ray: Report Reviewed CT Scan: Report Reviewed - General Mental Status: Confused, Flat Affect, Lethargic (eyes closed but responds to verbal/tactile stimulus) Ability to Follow Directions: Fair Head/Neck Control: Needs Assist - Hearing Hearing: Functional Speech Evaluation - Communication Primary Language: MARSHALL[place] Communication: Yes: Non-Communicable Oral Expression Ability: Yes: Non-Verbal, Non-Vocal - Speech Production Able to Make Needs Known: Yes: Severely Impaired - Speech Characteristics Articulation: Yes: Imprecise - Language/Auditory Comprehension Observation: Comprehends Conversational Speech: No - Swallow Evaluation/Bedside Assessment Current Nutritional Intake: Dysphagia Pureed, Thin Liquids Oral Secretions: Yes: WFL Dentition: Yes: Edentulous Facial Symmetry at Rest: Symmetrical Laryngeal Movement: Able to Palpate Rate of Intake: Slow/Holding Bolus Size: Small Labial Seal: WFL Oral Prep Time: Increased A-P Transit: Impaired Timing of Swallow: Delayed Coughing/Throat Clear: No Change in Voice: No Recommendations - Speech Evaluation, Impression/Plan Impression: Performance similar to recent admission. Eyes closed but responds to stimuli and accepts puree and thin liquid sips without cough. Swallow is delayed but brisk. Non communicative. - Dysphagia Impressions/Plan Dysphagia Impressions: Mild Impairment, Ongoing Evaluation *Silent aspiration: cannot be R/O at bedside Dysphagia Treatment Plan: Chin Tuck/Down, Safe Rate, 1/2 tsp. at a time, Elevate HOB during feed - Recommendations Diet Consistency: Dysphagia Pureed Medication Administration: Crushed with applesauce Liquids: Thin Liquids Supplement: Ensure
[2017-02-05] MEDS: HEPARIN NA (PORCINE) 5,000 UNITS/ML 1ML VIAL SQ SCH ×2 (11:43→22:32)
[2017-02-05] MEDS: MEMANTINE HCL 5 MG TABLET (UD) PO SCH (11:43)
[2017-02-05] MEDS: NYSTATIN POWDER 100,000 UNITS/GM - 15 GM TOPICAL POWDER TP SCH ×2 (13:30→22:31)
--- NOTE | 2017-02-05 16:23 | PN ---
Teaching Attending Note Name of Resident: Shaista Orourke ATTENDING PHYSICIAN STATEMENT I saw and evaluated the patient. I reviewed the resident's note and discussed the case with the resident. I agree with the resident's findings and plan as documented. SUBJECTIVE: Patient responsive to pain. OBJECTIVE: Vital Signs Period Temp Pulse Resp BP Sys/Angela Pulse Ox Last 24 Hr 97.7 F-98.5 F 62-74 13-18 149-175/67-74 96-100 HEART: S1 S2, RRR LUNGS: Clear ABDOMEN: Soft, non-distended, normal BS EXTREMITIES: No edema ASSESSMENT AND PLAN: This is an 89-year-old woman with a history of seizure disorder, anoxic brain injury, functional quadriplegia who was brought in to the ER for worsening lethargy. 1. Acute metabolic encephalopathy secondary to dehydration - IV fluid 2. Recent UTI - Completed course of Levaquin - Follow-up urine culture 3. Cutaneous candidiasis - Continue Nystatin 4. Functional quadriplegia 5. Stage II pressure ulcer of sacrum - Continue wound care 6. Hyponatremia, hypovolemic - Continue IV normal saline - Monitor electrolytes 7. Seizure disorder - Continue Depakote 8. History of anoxic brain injury 9. Dementia - Continue Namenda
--- NOTE | 2017-02-05 18:27 | PN ---
Physical Exam: SUBJECTIVE: Patient seen and examined by me at bedside. Patient' son at bedside. Reports patient is not eating and has been more lethargic. He would like to speak to the neurologist and changer her seizure medications. Had a long discussion with the son. OBJECTIVE: Vital Signs Period Temp Pulse Resp BP Sys/Angela Pulse Ox Last 24 Hr 97.7 F-98.5 F 62-74 16-18 151-166/67-74 96-96 GENERAL: Eyes closed, responsive to pain, in no acute distress. EYES: Unable to assess due to patient forcefully closing eyes NECK: Candidiasis on left side LUNGS: Breath sounds equal, clear to auscultation bilaterally. HEART: Regular rate and rhythm, normal S1 and S2 grade 3 systolic ej murmur ABDOMEN: Soft, nontender, not distended, normoactive bowel sounds, no guarding, no rebound, no masses. MUSCULOSKELETAL: contracted arms EXTREMITIES: No peripheral edema. NEUROLOGICAL: unresponsive but withdraws from pain PSYCHIATRIC: unresponsive SKIN: Candidiasis in breast folds and neck, decubitus ulcer stage 2, no surrounding cellulitis. Laboratory Results - last 24 hr 02/05/17 02/05/17 06:00 06:00 WBC 5.7 RBC 3.80 Hgb 11.8 Hct 35.2 MCV 92.6 MCHC 33.6 RDW 13.5 Plt Count 242 MPV 7.8 Sodium 129 L Potassium 4.4 Chloride 94 L Carbon Dioxide 27 Anion Gap 8 BUN 7 Creatinine 0.2 L Random Glucose 103 Calcium 7.7 L Phosphorus 3.6 D Magnesium 1.8 Active Medications Generic Name Dose Route Start Last Admin Trade Name Jarredq PRN Reason Stop Dose Admin Divalproex Sodium 250 mg 02/05/17 10:00 02/05/17 11:42 Depakote Sprinkle Caps - PO 250 mg BID LEA Administration Heparin Sodium (Porcine) 5,000 unit 02/05/17 10:00 02/05/17 11:43 Heparin - SQ 5,000 unit BID LEA Administration Sodium Chloride 1,000 mls @ 75 mls/hr 02/05/17 03:00 02/05/17 11:43 Normal Saline - IV 75 mls/hr ASDIR LEA Administration Memantine 5 mg 02/05/17 10:00 02/05/17 11:43 Namenda - PO 5 mg DAILY LEA Administration Nystatin 1 applic 02/05/17 10:00 02/05/17 13:30 Nystop Powder - TP 1 applic BID LEA Administration Images: Head CT (02/04/17): Negative for acute pathology Chest X-ray (02/04/17): Negative for acute pathology ASSESSMENT/PLAN: Patient is an 89 year old female with a PMHx of seizure disorder, 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 Patient recently discharged 01/30/17 after completing a 5 day course of Levaquin for UTI and lactic acidosis. Patient admitted for further monitoring and management. Altered Mental Status -Possibly due to dehydration vs. medication side effect -Baseline dementia -Head CT, CXR negative -U/A revealed positive nitrite and positive LE 2+ -Neuro checks Q4H -Urine cultures pending -Speech and Swallow recommended puree diet -No need for antibiotics at this time as patient is Afebrile, no leukocytosis, hemodynamically stable and recently completed Levaquin Hyponatremia -Sodium 129 -likely due to dehydration -bun/creat 6/0.2 -IVF NS @75 -urine osmolality pending -BMP in the morning Candidal rash -Nystatin Powder BID left neck, left breast fold Seizure disorder -Will hold Depakote as patient continues to be lethargic -Neuro consult placed Sacral pressure ulcer stage 2 -Non infected -Daily and PRN dressing change Dementia -Continue Namenda 5mg Daily Functional quadriplegia -Likely due to Anoxic brain injury -Turn Q2h -Aspiration precaution -HOB elevated FEN -IV NS @ 75ml/h -Hyponatremic: Contine IV NS @75mls/ hr -puree diet Prophylaxis -heparin 5000 U Sq BID Disposition -Awaiting neurology. Visit type - Emergency Visit Emergency Visit: Yes ED Registration Date: 02/06/17 Care time: The patient presented to the Emergency Department on the above date and was hospitalized for further evaluation of their emergent condition. - New Patient This patient is new to me today: Yes Date on this admission: 02/05/17 - Critical Care Critical Care patient: No
--- NOTE | 2017-02-05 22:15 | CON.NEURO ---
Consult - History of Present Illness History of Present Illness: 89 Year old female history of Anoxic encephalopathy, dementia, seizures disorder , non verbal as baseline and mostly bed bound. She looks around as baseline and been lethargic for ten days and she is uable to drink for last few days Apparently she was admitted and her dilantin was switched to depakote 250 mg po bid . She is found to have uti and hyponatremia. She also have episode of hyponatremia in past. It is not clear if she have seizures, she also have history of torticollis . 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 ) - Alcohol/Substance Use Hx Alcohol Use: No - Smoking History Smoking history: Never smoked Have you smoked in the past 12 months: No Home Medications - Allergies Allergies/Adverse Reactions: Allergies Allergy/AdvReac Type Severity Reaction Status Date / Time Penicillins Allergy Verified 02/04/17 19:06 carbidopa AdvReac Verified 02/04/17 19:06 levetiracetam [From Keppra] AdvReac Verified 02/04/17 19:06 mirtazapine AdvReac Verified 02/04/17 19:06 - Home Medications Home Medications: Ambulatory Orders Memantine HCl [Namenda Liquid] 5 mg PO DAILY #30 ml 09/14/16 Divalproex Sprinkle [Depakote Sprinkle -] 2 cap PO BID #120 cap.sprink 01/25/17 Nystatin Powder [Nystop Powder -] 1 applic TP BID #1 applic 01/30/17 Physical Exam-Neuro Vital Signs: Vital Signs Temperature 98.5 F 02/05/17 14:38 Pulse Rate 66 02/05/17 14:38 Respiratory Rate 18 02/05/17 14:38 Blood Pressure 151/69 02/05/17 14:38 O2 Sat by Pulse Oximetry (%) 96 02/05/17 08:31 Labs: CBC, BMP 02/05/17 06:00 02/05/17 06:00 INR, PTT INR Cancelled 02/04/17 20:10 NIH Stroke Scale - Total Score NIH Stroke Scale Score: 0 Imaging - Results Cat Scan: Report Reviewed Assessment/Plan CC mental status change HPI 89 Year old female history of Anoxic encephalopathy, dementia, seizures disorder, non verbal as baseline and mostly bed bound. She looks around as baseline and been lethargic for ten days and she is uable to drink for last few days Apparently she was admitted and her dilantin was switched to depakote 250 mg po bid . She is found to have uti and hyponatremia. She also have episode of hyponatremia in past. It is not clear if she have seizures, she also have history of torticollis . 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 She is squeezing her eye on opening and there is no facial asymmetry she is moving all extremity to painful stimuli no seizures activity was witnesssed she do not respond to any verbal stimuli CT head is normal LFT was normal Assessment-- Worsening of Mental status, seems to be hyponatremia, dehydration and uti. Given wbc is normal and febrile unlikely to be meningitis. Plan-- given she has history of seizure and primary team is concern about depakote, tough lft is normal, mental status change less likely to be due to depakote toxicty, Suggest to switch to lamictal start 50 mg bid and slowly increase to 100 mg bid - repeat EEG to rule out any seizure activity - no need for spinal tap - if no cause identified, consider mri of brain for possible stroke, need for mri need to be discussed with family . Thanking you so much Mariusz Bettencourt MD
[2017-02-05] MEDS: lamoTRIgine 25 MG TABLET PO SCH (22:31)
[2017-02-06 09:28] LABS: CALCIUM 7.9 mg/dL (8.5-10.1); COCKROFT - GAULT 122.893; CREATININE 0.2 mg/dL (0.55-1.02)
[2017-02-06] MEDS ORDERED: PT OWN MED DRAWER 7, Y5N ONE ×2 (11:08→22:47)
[2017-02-06] MEDS: HEPARIN NA (PORCINE) 5,000 UNITS/ML 1ML VIAL SQ SCH ×2 (11:14→23:04)
[2017-02-06] MEDS: MEMANTINE HCL 5 MG TABLET (UD) PO SCH (11:14)
[2017-02-06] MEDS: NYSTATIN POWDER 100,000 UNITS/GM - 15 GM TOPICAL POWDER TP SCH ×2 (11:14→23:04)
[2017-02-06] MEDS: lamoTRIgine 25 MG TABLET PO SCH ×2 (11:16→23:04)
--- NOTE | 2017-02-06 14:51 | PN ---
Physical Exam: SUBJECTIVE: Patient seen and examined by me at bedside. No overnight events noted. Patient's son reports she is still not at baseline and believes it has to do with the antiseizure meds. He would like her to go back on her original medication, Dilantin, or stop the seizure medications all together. Told son due to her history of seizures, with the last one in August, that she needs to be on these medications. Spoke to the neurologist who recommended to go back to her Dilantin original dose after giving her loading dose. OBJECTIVE: GENERAL: Eyes closed, responsive to pain, in no acute distress. NECK: Candidiasis on left side LUNGS: Breath sounds equal, clear to auscultation bilaterally. HEART: Regular rate and rhythm, normal S1 and S2 grade 3 systolic ej murmur ABDOMEN: Soft, nontender, not distended, normoactive bowel sounds, no guarding, no rebound, no masses. MUSCULOSKELETAL: contracted arms EXTREMITIES: No peripheral edema. NEUROLOGICAL: unresponsive but withdraws from pain SKIN: Candidiasis in breast folds and neck, decubitus ulcer stage 2, no surrounding cellulitis. Active Medications Generic Name Dose Route Start Last Admin Trade Name Freq PRN Reason Stop Dose Admin Heparin Sodium (Porcine) 5,000 unit 02/05/17 10:00 02/06/17 11:14 Heparin - SQ 5,000 unit BID LEA Administration Sodium Chloride 1,000 mls @ 75 mls/hr 02/05/17 03:00 02/05/17 11:43 Normal Saline - IV 75 mls/hr ASDIR LEA Administration Lamotrigine 50 mg 02/05/17 22:15 02/06/17 11:16 Lamictal - PO Not Given BID LEA Memantine 5 mg 02/05/17 10:00 02/06/17 11:14 Namenda - PO 5 mg DAILY LEA Administration Nystatin 1 applic 02/05/17 10:00 02/06/17 11:14 Nystop Powder - TP 1 applic BID LEA Administration Phenytoin Sodium 250 mg 02/06/17 14:00 Dilantin Injection - IVPB 02/07/17 14:00 Q8H LEA Images: Head CT (02/04/17): Negative for acute pathology Chest X-ray (02/04/17): Negative for acute pathology ASSESSMENT/PLAN: Patient is an 89 year old female with a PMHx of seizure disorder, 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 Patient recently discharged 01/30/17 after completing a 5 day course of Levaquin for UTI and lactic acidosis. Patient admitted for further monitoring and management. Altered Mental Status -Possibly due to dehydration vs. medication side effect -Baseline dementia -Head CT, CXR negative -Spoke to neurology. Will load the patient with Dilantin and then begin her original dose -Continue Puree diet -Neuro checks Q4H Positive U/A-asymptomatic -U/A revealed positive nitrite and positive LE 2+ -Recently completed 5 day course of Levaquin for UTI -Urine cultures pending -No need for antibiotics at this time as patient is Afebrile, no leukocytosis, hemodynamically stable and recently completed Levaquin Hyponatremia -Sodium 131 -likely due to dehydration -bun/creat 6/0.2 -IVF NS @75 -BMP in the morning Candidal rash -Nystatin Powder BID left neck, left breast fold Seizure disorder -Will give patient loading dose of 750mg Dilantin split into three dosages of 250mg Q8H -After loading dose, resume original dose, as per neurology -Neuro check Sacral pressure ulcer stage 2 -Non infected -Daily and PRN dressing change Dementia -Continue Namenda 5mg Daily Functional quadriplegia -Likely due to Anoxic brain injury -Turn Q2h -Aspiration precaution -HOB elevated FEN -IV NS @ 75ml/h -Hyponatremic: Contine IV NS @75mls/ hr -puree diet Prophylaxis -heparin 5000 U Sq BID Disposition -Will give loading dose Dilantin and will follow up. Visit type - Emergency Visit Emergency Visit: Yes ED Registration Date: 02/06/17 Care time: The patient presented to the Emergency Department on the above date and was hospitalized for further evaluation of their emergent condition. - New Patient This patient is new to me today: No - Critical Care Critical Care patient: No
[2017-02-06] MEDS: SODIUM CHLORIDE 1,000 ML IV SCH (16:20)
--- NOTE | 2017-02-06 17:29 | PN ---
Teaching Attending Note Name of Resident: Shaista Orourke ATTENDING PHYSICIAN STATEMENT I saw and evaluated the patient. I reviewed the resident's note and discussed the case with the resident. I agree with the resident's findings and plan as documented. SUBJECTIVE: Patient responds only to pain. OBJECTIVE: Vital Signs Period Temp Pulse Resp BP Sys/Angela Pulse Ox Last 24 Hr 96.9 F-97.6 F 58-68 16-18 113-155/60-64 HEART: S1 S2, RRR LUNGS: Clear ABDOMEN: Soft, non-distended, normal BS EXTREMITIES: No edema ASSESSMENT AND PLAN: This is an 89-year-old woman with a history of seizure disorder, anoxic brain injury, functional quadriplegia who was brought in to the ER for worsening lethargy. 1. Acute metabolic encephalopathy secondary to dehydration - Continue IV fluid 2. Recent UTI - Completed course of Levaquin - Follow-up urine culture 3. Cutaneous candidiasis - Continue Nystatin 4. Functional quadriplegia 5. Stage II pressure ulcer of sacrum - Continue wound care 6. Hyponatremia, hypovolemic - Improving - Continue IV normal saline - Monitor electrolytes 7. Seizure disorder - Neurology input appreciated - Plan to switch from Depakote back to Dilantin 8. History of anoxic brain injury 9. Dementia - Continue Namenda
[2017-02-06] MEDS: PHENYTOIN SODIUM 100 MG/2 ML VIAL IVPB SCH ×2 (17:43→23:03)
--- NOTE | 2017-02-07 01:00 | RAPID ---
Physical Examination Vital Signs: Vital Signs Temperature 97.2 F L 02/06/17 19:31 Pulse Rate 64 02/06/17 19:31 Respiratory Rate 18 02/06/17 19:31 Blood Pressure 150/55 02/06/17 19:31 O2 Sat by Pulse Oximetry (%) 98 02/06/17 18:00 Constitutional: Yes: Calm Eyes: Yes: Conjunctiva Clear HENT: Yes: Atraumatic Neck: Yes: Other (redness of left neck) Cardiovascular: Yes: Regular Rate and Rhythm, Murmur, S1, S2 Respiratory: Yes: Regular Gastrointestinal: Yes: Normal Bowel Sounds, Soft Musculoskeletal: Yes: Joint Stiffness Extremities: Yes: Other Edema: No Peripheral Pulses WNL: Yes Neurological: Yes: Lethargy, Weakness, Other (open eyes spontaneously, respond to tactile stimuli, minimal sluggish movement upper ext with limited rom b/l and right hand contracted.) Rapid Response - Rapid Response Assessment: was called to assess an 89 year old female who has a history of 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 Per nursing staff pt was shaking and drooling and they felt patient was having a seizure and aspirating. Upon arrival pt was calm , responding to tactile stimuli, moves extremities, no major change her baseline from this admission or previous admission. Vital signs, O2 sat and blood sugar was all within normal limit. Impression AMS rt dehydration, worsening dementia R/o seizure and post ictal state Plan CBC BMP MG Phos lactic acid cardiac profile Prolactin O2 nasal cannula prn keep O2 sat above 90% Aspiration precaution Suction prn HOB Seizure precaution
[2017-02-07 01:17] LABS: MCH 31.2 pg (25.7-33.7); MCHC 33.5 g/dl (32.0-36.0); MEAN PLT VOLUME 8.3 fl (7.5-11.1); PLATELET COUNT 273 K/MM3 (134-434); RDW 13.6 % (11.6-15.6); WHITE BLOOD COUNT 6.3 K/mm3 (4.0-10.0)
[2017-02-07 01:41] LABS: CALCIUM 8.1 mg/dL (8.5-10.1); COCKROFT - GAULT 81.923; CREATININE 0.3 mg/dL (0.55-1.02); PHOSPHOROUS 2.7 mg/dL (2.5-4.9)
[2017-02-07 01:43] LABS: TROPONIN I 0.03 ng/ml (0.00-0.05)
[2017-02-07] MEDS: SODIUM CHLORIDE 1,000 ML IV SCH (06:08)
[2017-02-07] MEDS: PHENYTOIN SODIUM 100 MG/2 ML VIAL IVPB SCH ×2 (06:08→15:27)
--- NOTE | 2017-02-07 08:11 | PN ---
Physical Exam: SUBJECTIVE: Patient seen and examined by me at bedside. Overnight events noted. Patient was reported to have shaking and drooling noticed by the patient next to her, as per nurse. When the overnight medical team arrived, patient was calm, responding to tactile stimuli and had no changes from her baseline. This morning patient was sleeping but responding to painful stimuli. OBJECTIVE: Vital Signs Period Temp Pulse Resp BP Sys/Angela Pulse Ox Last 24 Hr 97.2 F-97.8 F 60-64 12-18 143-163/55-78 98 GENERAL: Eyes closed, responsive to pain, in no acute distress. NECK: Candidiasis on left side. LUNGS: Breath sounds equal, clear to auscultation bilaterally. HEART: Regular rate and rhythm, normal S1 and S2 grade 3 systolic ej murmur ABDOMEN: Soft, nontender, not distended, normoactive bowel sounds, no guarding, no rebound, no masses. MUSCULOSKELETAL: contracted arms EXTREMITIES: No peripheral edema. NEUROLOGICAL: unresponsive but withdraws from pain SKIN: Candidiasis in breast folds and neck, decubitus ulcer stage 2, no surrounding cellulitis. Laboratory Results - last 24 hr 02/07/17 02/07/17 02/07/17 00:32 00:45 00:45 WBC 6.3 RBC 3.88 Hgb 12.1 Hct 36.1 MCV 93.0 MCHC 33.5 RDW 13.6 Plt Count 273 MPV 8.3 Sodium 131 L Potassium 4.2 Chloride 94 L Carbon Dioxide 26 Anion Gap 11 BUN 5 L Creatinine 0.3 L D POC Glucometer 130 Random Glucose 118 H D Lactic Acid Calcium 8.1 L Phosphorus 2.7 D Magnesium 2.0 Troponin I 0.03 02/07/17 00:45 WBC RBC Hgb Hct MCV MCHC RDW Plt Count MPV Sodium Potassium Chloride Carbon Dioxide Anion Gap BUN Creatinine POC Glucometer Random Glucose Lactic Acid 2.0 Calcium Phosphorus Magnesium Troponin I Active Medications Generic Name Dose Route Start Last Admin Trade Name Freq PRN Reason Stop Dose Admin Heparin Sodium (Porcine) 5,000 unit 02/05/17 10:00 02/06/17 23:04 Heparin - SQ 5,000 unit BID LEA Administration Sodium Chloride 1,000 mls @ 75 mls/hr 02/05/17 03:00 02/07/17 06:08 Normal Saline - IV 75 mls/hr ASDIR LEA Administration Lamotrigine 50 mg 02/05/17 22:15 02/06/17 23:04 Lamictal - PO 50 mg BID LEA Administration Memantine 5 mg 02/05/17 10:00 02/06/17 11:14 Namenda - PO 5 mg DAILY LEA Administration Nystatin 1 applic 02/05/17 10:00 02/06/17 23:04 Nystop Powder - TP 1 applic BID LEA Administration Phenytoin Sodium 250 mg 02/06/17 14:00 02/07/17 06:08 Dilantin Injection - IVPB 02/07/17 14:00 250 mg Q8H LEA Administration Images: Head CT (02/04/17): Negative for acute pathology Chest X-ray (02/04/17): Negative for acute pathology ASSESSMENT/PLAN: Patient is an 89 year old female with a PMHx of seizure disorder, 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 Patient recently discharged 01/30/17 after completing a 5 day course of Levaquin for UTI and lactic acidosis. Patient admitted for further monitoring and management. Altered Mental Status -Possibly due to dehydration vs. medication side effect -Baseline dementia -Head CT, CXR negative -Dilantin 250mg and stop after three doses. Will then resume her original dose of 100mg -Continue Puree diet -Neuro checks Q4H Positive U/A-asymptomatic -U/A revealed positive nitrite and positive LE 2+ -Recently completed 5 day course of Levaquin for UTI -Urine culture prelim showing staph coagulase neg -No need for antibiotics at this time as patient is Afebrile, no leukocytosis, hemodynamically stable and recently completed Levaquin Hyponatremia -Today 131 -likely due to dehydration -bun/creat 3/0.2 -Contrinue IVF NS @75 -BMP in the morning Candidal rash -Nystatin Powder BID left neck, left breast fold Seizure disorder -loading dose of 750mg Dilantin split into three dosages of 250mg and will stop after three doses. -After loading dose, resume original dose, as per neurology -Neuro check Sacral pressure ulcer stage 2 -Non infected -Daily and PRN dressing change Dementia -Continue Namenda 5mg Daily Functional quadriplegia -Likely due to Anoxic brain injury -Turn Q2h -Aspiration precaution -HOB elevated FEN -IV NS @ 75ml/h -Hyponatremic: Contine IV NS @75mls/ hr -puree diet Prophylaxis -heparin 5000 U Sq BID Disposition -Will give loading dose Dilantin and will follow up. Visit type - Emergency Visit Emergency Visit: Yes ED Registration Date: 02/06/17 Care time: The patient presented to the Emergency Department on the above date and was hospitalized for further evaluation of their emergent condition. - New Patient This patient is new to me today: No - Critical Care Critical Care patient: No
[2017-02-07 08:17] LABS: CALCIUM 8.2 mg/dL (8.5-10.1)
[2017-02-07 08:19] LABS: COCKROFT - GAULT 122.893; CREATININE 0.2 mg/dL (0.55-1.02)
[2017-02-07] MEDS: HEPARIN NA (PORCINE) 5,000 UNITS/ML 1ML VIAL SQ SCH ×2 (10:00→23:06)
--- NOTE | 2017-02-07 12:34 | PN ---
Progress Note, ACCOUNTS PAYABLE CLERK - Note Progress Note: Pt with possible seizure activity, given Dilantin, NPO. Asked by RD/pt's son to re-evaluate. Call placed to PMD who approved reassessment. Pt is unresponsive to tactile stimuli, sleeping comfortably. No sob or audible congestion. PO trial not performed due to lethargy. Continue NPO.
[2017-02-07] MEDS: lamoTRIgine 25 MG TABLET PO SCH ×2 (12:46→23:04)
[2017-02-07] MEDS: MEMANTINE HCL 5 MG TABLET (UD) PO SCH (12:47)
[2017-02-07] MEDS: NYSTATIN POWDER 100,000 UNITS/GM - 15 GM TOPICAL POWDER TP SCH ×2 (12:47→23:06)
[2017-02-07] MEDS ORDERED: PT OWN MED DRAWER 7, Y5N ONE (14:25)
--- NOTE | 2017-02-07 16:02 | EKG ---
Test Reason : Blood Pressure : / mmHG Vent. Rate : 070 BPM Atrial Rate : 070 BPM P-R Int : 162 ms QRS Dur : 068 ms QT Int : 408 ms P-R-T Axes : 063 -09 036 degrees QTc Int : 440 ms NORMAL SINUS RHYTHM T WAVE ABNORMALITY, CONSIDER ANTERIOR ISCHEMIA ABNORMAL ECG WHEN COMPARED WITH ECG OF 04-FEB-2017 20:20, NO SIGNIFICANT CHANGE WAS FOUND Confirmed by MEGAN HANKS MD ([id number]) on 02/07/2017 4:02:04 PM Referred By: Confirmed By:MEGAN HANKS MD
--- NOTE | 2017-02-07 16:55 | PN ---
Teaching Attending Note Name of Resident: Shaista Orourke ATTENDING PHYSICIAN STATEMENT I saw and evaluated the patient. I reviewed the resident's note and discussed the case with the resident. I agree with the resident's findings and plan as documented. SUBJECTIVE: Patient remains responsive only to painful stimuli. OBJECTIVE: Vital Signs Period Temp Pulse Resp BP Sys/Angela Pulse Ox Last 24 Hr 97.2 F-97.8 F 60-66 12-22 143-163/55-78 98-98 HEART: S1 S2, RRR LUNGS: Clear ABDOMEN: Soft, non-distended, normal BS EXTREMITIES: No edema ASSESSMENT AND PLAN: This is an 89-year-old woman with a history of seizure disorder, anoxic brain injury, functional quadriplegia who was brought in to the ER for worsening lethargy. 1. Acute metabolic encephalopathy secondary to dehydration - Continue IV fluid - EEG pending 2. Recent UTI - Completed course of Levaquin - Follow-up urine culture 3. Cutaneous candidiasis - Continue Nystatin 4. Functional quadriplegia 5. Stage II pressure ulcer of sacrum - Continue wound care 6. Hyponatremia, hypovolemic - Sodium is stable 7. Seizure disorder - Dilantin restarted 8. History of anoxic brain injury 9. Dementia - Continue Namenda
[2017-02-08] MEDS: SODIUM CHLORIDE 1,000 ML IV SCH ×3 (05:57→18:52)
--- NOTE | 2017-02-08 07:00 | PN ---
Physical Exam: SUBJECTIVE: Patient seen and examined by me at bedside. No overnight events noted. Patient still remains at baseline, non verbal, and is still lethargic. Will begin her original Dilantin dose and awaiting EEG. OBJECTIVE: Vital Signs Period Temp Pulse Resp BP Sys/Angela Pulse Ox Last 24 Hr 97.7 F-98.0 F 64-66 20-22 128-148/54-65 98-98 GENERAL: Eyes closed, responsive to pain, in no acute distress. NECK: Candidiasis on left side. LUNGS: Breath sounds equal, clear to auscultation bilaterally. HEART: Regular rate and rhythm, normal S1 and S2 grade 3 systolic ej murmur ABDOMEN: Soft, nontender, not distended, normoactive bowel sounds, no guarding, no rebound, no masses. MUSCULOSKELETAL: contracted arms EXTREMITIES: No peripheral edema. NEUROLOGICAL: unresponsive but withdraws from pain SKIN: Candidiasis in breast folds and neck, decubitus ulcer stage 2, no surrounding cellulitis. Laboratory Results - last 24 hr 02/07/17 02/07/17 02/07/17 00:45 00:45 06:30 Sodium 131 L Potassium 4.0 Chloride 95 L Carbon Dioxide 24 Anion Gap 12 BUN 3 L D Creatinine 0.2 L D Random Glucose 142 H D Lactic Acid Cancelled Calcium 8.2 L Prolactin 53.4 H Active Medications Generic Name Dose Route Start Last Admin Trade Name Freq PRN Reason Stop Dose Admin Heparin Sodium (Porcine) 5,000 unit 02/05/17 10:00 02/07/17 23:06 Heparin - SQ 5,000 unit BID LEA Administration Sodium Chloride 1,000 mls @ 75 mls/hr 02/05/17 03:00 02/08/17 05:59 Normal Saline - IV 75 mls/hr ASDIR LEA Administration Lamotrigine 50 mg 02/05/17 22:15 02/07/17 23:04 Lamictal - PO Not Given BID LEA Memantine 5 mg 02/05/17 10:00 02/07/17 12:47 Namenda - PO Not Given DAILY LEA Nystatin 1 applic 02/05/17 10:00 02/07/17 23:06 Nystop Powder - TP 1 applic BID LEA Administration Images: Head CT (02/04/17): Negative for acute pathology Chest X-ray (02/04/17): Negative for acute pathology ASSESSMENT/PLAN: Patient is an 89 year old female with a PMHx of seizure disorder, 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 Patient recently discharged 01/30/17 after completing a 5 day course of Levaquin for UTI and lactic acidosis. Patient admitted for further monitoring and management. Altered Mental Status -Possibly due to dehydration vs. medication side effect -Baseline dementia -Head CT and CXR negative -Will resume her original dose of Dilantin 100mg once Dilantin level returns -Will try to resume her puree diet -Neuro checks Q4H Positive U/A-asymptomatic -U/A revealed positive nitrite and positive LE 2+ -Recently completed 5 day course of Levaquin for UTI -Urine culture prelim showing staph coagulase neg. Will wait for sensitivities -No need for antibiotics at this time as patient is Afebrile, no leukocytosis, hemodynamically stable and recently completed Levaquin Hyponatremia -likely due to dehydration -Continue IVF NS @75 -BMP in the morning Candidal rash -Nystatin Powder BID left neck, left breast fold Seizure disorder -Resume original dose of Dilantin of 100mg, as per neurology once Dilantin level is back -Neuro checks Q4H Sacral pressure ulcer stage 2 -Non infected -Daily and PRN dressing change Dementia -Continue Namenda 5mg Daily Functional quadriplegia -Likely due to Anoxic brain injury -Turn Q2h -Aspiration precaution -HOB elevated FEN -IV NS @ 75ml/h -Hyponatremic: Contine IV NS @75mls/ hr -puree diet Prophylaxis -heparin 5000 U Sq BID Disposition -Will resume Dilantin 100mg Visit type - Emergency Visit Emergency Visit: Yes ED Registration Date: 02/06/17 Care time: The patient presented to the Emergency Department on the above date and was hospitalized for further evaluation of their emergent condition. - New Patient This patient is new to me today: No - Critical Care Critical Care patient: No
[2017-02-08 07:42] LABS: COCKROFT - GAULT 122.893; CREATININE 0.2 mg/dL (0.55-1.02)
[2017-02-08] MEDS: HEPARIN NA (PORCINE) 5,000 UNITS/ML 1ML VIAL SQ SCH ×2 (10:34→22:16)
[2017-02-08] MEDS: lamoTRIgine 25 MG TABLET PO SCH (10:35)
[2017-02-08] MEDS: MEMANTINE HCL 5 MG TABLET (UD) PO SCH (10:35)
[2017-02-08 12:15] LABS: VALPROIC ACID DEPAKOTE DEPAKAN 11.093 ug/ml (50-100)
[2017-02-08] MEDS: NYSTATIN POWDER 100,000 UNITS/GM - 15 GM TOPICAL POWDER TP SCH ×2 (12:26→22:16)
--- NOTE | 2017-02-08 17:38 | PN ---
Teaching Attending Note Name of Resident: Shaista Orourke ATTENDING PHYSICIAN STATEMENT I saw and evaluated the patient. I reviewed the resident's note and discussed the case with the resident. I agree with the resident's findings and plan as documented. SUBJECTIVE: Patient unresponsive to voice. OBJECTIVE: Vital Signs Period Temp Pulse Resp BP Sys/Angela Pulse Ox Last 24 Hr 97.0 F-98.0 F 64-70 18-22 123-147/54-70 96-98 HEART: S1 S2, RRR LUNGS: Clear ABDOMEN: Soft, non-distended, normal BS EXTREMITIES: No edema ASSESSMENT AND PLAN: This is an 89-year-old woman with a history of seizure disorder, anoxic brain injury, functional quadriplegia who was brought in to the ER for worsening lethargy. 1. Acute metabolic encephalopathy secondary to dehydration and UTI - Urine culture growing >100,000 colonies Staph warneri resistant to Levaquin - Start Rocephin (patient is allergic to PCN but has tolerated cephalosporins in past) 2. Cutaneous candidiasis - Continue Nystatin 3. Functional quadriplegia 4. Stage II pressure ulcer of sacrum - Continue wound care 5. Hyponatremia, hypovolemic - Sodium improving 6. Seizure disorder - Continue Dilantin - EEG consistent with diffuse cerebral dysfunction, seizure disorder 7. History of anoxic brain injury 8. Dementia - Continue Namenda
[2017-02-08] MEDS: PHENYTOIN 100 MG/4 ML U-D CUP PO SCH (20:01)
[2017-02-09] MEDS: SODIUM CHLORIDE 1,000 ML IV SCH (07:03)
[2017-02-09 09:32] LABS: MCH 31.6 pg (25.7-33.7); MCHC 34.1 g/dl (32.0-36.0); MEAN CELL VOLUME 92.6 fl (80-96); MEAN PLT VOLUME 8.2 fl (7.5-11.1); PLATELET COUNT 285 K/MM3 (134-434); RDW 13.6 % (11.6-15.6); WHITE BLOOD COUNT 6.8 K/mm3 (4.0-10.0)
[2017-02-09] MEDS ORDERED: CEFTRIAXONE 50 ML IVPB SCH (10:00)
[2017-02-09] MEDS ORDERED: PT OWN MED DRAWER 7, Y5N ONE (10:05)
[2017-02-09] MEDS: HEPARIN NA (PORCINE) 5,000 UNITS/ML 1ML VIAL SQ SCH (10:17)
[2017-02-09] MEDS: MEMANTINE HCL 5 MG TABLET (UD) PO SCH (10:17)
[2017-02-09] MEDS: NYSTATIN POWDER 100,000 UNITS/GM - 15 GM TOPICAL POWDER TP SCH (10:17)
[2017-02-09] MEDS: PHENYTOIN 100 MG/4 ML U-D CUP PO SCH (10:18)
[2017-02-09 10:36] LABS: CALCIUM 8.7 mg/dL (8.5-10.1); COCKROFT - GAULT 81.923; CREATININE 0.3 mg/dL (0.55-1.02)
--- NOTE | 2017-02-09 12:07 | PN ---
Teaching Attending Note Name of Resident: Shaista Orourke ATTENDING PHYSICIAN STATEMENT I saw and evaluated the patient. I reviewed the resident's note and discussed the case with the resident. I agree with the resident's findings and plan as documented. SUBJECTIVE: Patient is comfortable. OBJECTIVE: Vital Signs Period Temp Pulse Resp BP Sys/Angela Pulse Ox Last 24 Hr 97.7 F-98.4 F 66-81 18-18 133-147/46-70 98 HEART: S1 S2, RRR LUNGS: Clear ABDOMEN: Soft, non-distended, normal BS EXTREMITIES: No edema ASSESSMENT AND PLAN: This is an 89-year-old woman with a history of seizure disorder, anoxic brain injury, functional quadriplegia who was brought in to the ER for worsening lethargy. 1. Acute metabolic encephalopathy secondary to dehydration and UTI - Urine culture growing >100,000 colonies Staph warneri resistant to Levaquin - On Rocephin (patient is allergic to PCN but has tolerated cephalosporins in past) - Discharge on Ceftin 2. Cutaneous candidiasis - Continue Nystatin 3. Functional quadriplegia 4. Stage II pressure ulcer of sacrum - Continue wound care 5. Hyponatremia, hypovolemic 6. Seizure disorder - Continue Dilantin - EEG consistent with diffuse cerebral dysfunction, seizure disorder 7. History of anoxic brain injury 8. Dementia - Continue Namenda
[2017-02-09] MEDS ORDERED: POTASSIUM CHLORIDE ORAL LIQUID 20 MEQ/15 ML PO ONE (14:22)
[2017-02-09 14:37] VITALS: BP 144/56; PULSE 70; TEMP 97.5
--- NOTE | 2017-02-09 16:14 | DS ---
Physical Exam: SUBJECTIVE: Patient seen and examined by me at bedside. No overnight events noted. Patient is eating today and was very responsive to painful stimuli. Spoke to son about patients improvement and baseline status. Patient stable for discharge. OBJECTIVE: Vital Signs Period Temp Pulse Resp BP Sys/Angela Pulse Ox Last 24 Hr 97.5 F-98.4 F 66-81 18-20 133-144/46-62 98 PHYSICAL EXAM GENERAL: Eyes closed, responsive to pain, in no acute distress. NECK: Candidiasis on left side. LUNGS: Breath sounds equal, clear to auscultation bilaterally. HEART: Regular rate and rhythm, normal S1 and S2 grade 3 systolic ej murmur ABDOMEN: Soft, nontender, not distended, normoactive bowel sounds, no guarding, no rebound, no masses. EXTREMITIES: No peripheral edema. NEUROLOGICAL: unresponsive but withdraws from pain SKIN: Candidiasis in breast folds and neck, decubitus ulcer stage 2, no surrounding cellulitis. 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 Patient recently discharged 01/30/17 after completing a 5 day course of Levaquin for UTI. According to the son, patient is not eating and has been more lethargic. He believes it's due to the seizure medications that were recently changed. Patient was originally on Dilantin and then in previous hospital stay it was changed to depakote. Patient's son reports she was better with Dilantin. Over the hospital course patient was changed to Dilantin 100mg daily. When patient was placed on Dilantin she was first very lethargic due to the loading dose but it was stopped after 500mg given. Patient was then resumed to 100mg of Dilantin and she responded well. Patient was less lethargic and was able to tolerate PO diet She was also found to have a UTI and when cultures were final, patient was given ceftriaxone. Patient clinically improved throughout the hospital stay and 24/ care was set up by manager social responsibility. Patient was set to go home with / care with a company. Date of Admission:02/06/17 Date of Discharge: 02/09/17 Minutes to complete discharge: 45 Discharge Summary Reason For Visit: UTI DEMENTIA HYPONATREMIA Current Active Problems Altered mental status (Acute) Hyponatremia (Acute) UTI (urinary tract infection) (Acute) Dementia (Chronic) Seizure disorder, focal motor (Chronic) Condition: Stable - Instructions Diet, Activity, Other Instructions: -Patient my resume her regular diet -She was found to have a UTI and you need to picking tech the prescription sent over to her pharmacy -Her Seizure medication was changed and will be sent over to the pharmaxy -Please follow up with the neurologist within the week so he can adjust medications accordingly -Continue applying the nystatin powder on her left neck and breast area -If patient begins to have fever >101.0, chest pain, shortness of breath, return to the emergency department Referrals: Mariusz Bettencourt MD [Staff Physician] - Mika Dickerson MD, [Primary Care Provider] - Disposition: HOME - Home Medications Comprehensive Discharge Medication List: Ambulatory Orders Memantine HCl [Namenda Liquid] 5 mg PO DAILY #30 ml 09/14/16 Nystatin Powder [Nystop Powder -] 1 applic TP BID #1 applic 01/30/17 Cefuroxime Axetil Suspension [Ceftin Suspension -] 500 mg PO BID #100 ml Phenytoin Oral Suspension [Dilantin Oral Suspension 100 MG/4 ML] 100 mg PO DAILY #30 cup 02/09/17 This patient is new to me today: No Emergency Visit: Yes ED Registration Date: 02/06/17 Care time: The patient presented to the Emergency Department on the above date and was hospitalized for further evaluation of their emergent condition. Critical Care patient: No - Discharge Referral Referred to [facility] Med [facility] No
== END 2017-02-09 15:49 | disposition home or self-care (01) | DRG 422 ==
LOC: JER 19:02 → JERBED 02-05 02:27 → J5S 02-05 09:28 → OBSVTOIN 02-06 14:00
PROVIDERS: ADMIT Internal Medicine; ATTEND Internal Medicine
DX: E87.1 Hypo-osmolality and hyponatremia (principal); N39.0 Urinary tract infection, site not specified; R53.83 Other fatigue; E87.2 Acidosis; G40.909 Epilepsy, unspecified, not intractable, without status epilepticus; R53.2 Functional quadriplegia; F03.90 Unspecified dementia, unspecified severity, without behavioral disturbance, psychotic disturbance, mood disturbance, and anxiety; B96.20 Unspecified Escherichia coli [E. coli] as the cause of diseases classified elsewhere; B37.89 Other sites of candidiasis; L89.152 Pressure ulcer of sacral region, stage 2; G93.41 Metabolic encephalopathy; E86.0 Dehydration; Z74.01 Bed confinement status; E86.1 Hypovolemia
CPT/HCPCS: 36415; 70450-TC; 71010-TC; 80048; 80053; 80164; 80185; 81003; 81015; 83605; 83735; 83935; 84100; 84146; 84484; 85025; 85027; 87086; 87186; 93005; 93010; 95816; 99285-25; G0378; J1644